=== PATIENT | male | born 1955 | race Caucasian/White ===

== ENCOUNTER 2022-06-04 05:42 | Observation (INO) | payer BC ==
--- OUTSIDE RECORDS SUMMARY | 2022-06-04 05:45 | XMS REPORT | Continuity of Care Document ---
:1955 Author Organization [facility] t Address [address] [place] [address] Care Team Providers Name Role Phone [phone] Primary Care Physician Unavailable SYSTEM, PROVIDER NOT IN Attending Clinician Unavailable Ancelmo Bolaños MD Attending Clinician ANCELMO BOLAÑOS Attending Clinician Unavailable МАРИЯ LUA Attending Clinician Unavailable BENJAMIN CASON Attending Clinician Unavailable RADIOLOGY Attending Clinician Unavailable Payers Payer Name Policy Type Policy Number Effective Date Expiration Date S [facility] [id number] 2016 00:00:00 Problems Condition Condition Condition Status Onset Resolution Last Treating Co mments Source Name Details Category Date Date Treatment Clinician Date Obstructiv Obstructiv Disease Active M ethodi e sleep e sleep 04-25 st apnea, apnea, 00:00: Hospita adult adult 00 l Allergies, Adverse Reactions, Alerts Allergy Allergy Status Severity Reaction(s) Onset Inactive Treating Comm ents Source Name Type Date Date Clinician Charleen Goins Active 2019-08 Univers Larry ty to 0-30 ity of adverse 00:00: [place] reaction 00 MD burt garcia [facility] Codeine Propmane Active Other (See Uni vers ty to Comments) 04-25 ity of adverse 00:00: [place] reaction 00 MD burt garcia [facility] Zolpidem Propensi Active Other Univer s ty to 04-25 reaction( ity of adverse 00:00: s): [place] reaction 00 Unknown MD [place] Reaction Satinder garcia [facility] Zolpidem Propensi Active Unknown 2019-0 Metho di ty to Reaction 04-25 adverse 00:00: Hospita reaction 00 l s to drug Codeine Propensi Active Unknown Method i ty to Reaction 04-25 adverse 00:00: Hospita reaction 00 l s to drug NO KNOWN Drug Active Univers ALLERGIE Class ity of S [facility] Family History Family Member Diagnosis Comments Start Date Stop Date Source Natural father Kidney cancer Univers [facility] Natural mother Pancreatic cancer Uni versity of [facility] Social History Social Habit Start Date Stop Date Quantity Comments Source History SDOH [facility] Drinks History SDOH [facility] Alcohol intake 2020-06-01 2020-06-01 Ex-drinker University of 00:00:00 00:00:00 (finding) [place] Darek wayne [facility] Tobacco Comment 2020-06-01 2020-06-01 I have neve Yahir ty of 00:00:00 00:00:00 smoked and have [place] MD Berg not drank any Cancer Cent er alcohol in 40yrs. Alcohol Comment 2020-06-01 2020-06-01 I have not drank Uni versity of 00:00:00 00:00:00 any alcohol in [place] MD Link tr[facility]illo [facility] Tobacco use and 2020-06-01 2020-06-01 Smokeless tobacco Un iversity of exposure 00:00:00 00:00:00 non-user [place] MD Darek wayne [facility] History SDOH 2019-04-25 2019-04-25 1 [facility] Alcohol Frequency 00:00:00 00:00:00 Hospita l Sex [birth year] [facility] 00:00:00 00:00:00 Hospital Smoking Status Start Date Stop Date Source Never smoked tobacco [facility] Medications Ordered Filled Start Stop Current Ordering Indication Dosage Frequency Signature Comments Components Source Medication Medication Date Date Medication? Clinician (SIG) Name Name MAGNESIUM 2020-08 Yes Take by Unive rs ORAL 1-03 mouth. ity of 09:42: Sonny garcia [facility] vitamin B 2020-08 Yes Take by Unive rs complex (B 1-03 mouth. ity of COMPLEX-VIT 09:42: Sonny Chan 47 ORAL) [facility] cholecalcif 2021-1 Yes Take by Uni vers deep, 1-03 mouth. ity of vitamin D3, 09:42: [place] (VITAMIN D3 47 ORAL) Satinder garcia [facility] zinc 2020-08 Yes 50mg Take 50 mg Univers gluconate 1-03 by mouth ity of 50 mg 09:42: daily. [place] tablet 47 MD Satinder garcia [facility] nebivolol 2020-08 Yes 1{tbl} Take 1 Univ ers (BYSTOLIC) 1-01 tablet by ity of 10 mg 00:00: mouth [place] tablet 00 daily. 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 MD Satinder garcia [facility] lithium 2019-08 Yes 1{tbl} Take 1 Univer s carbonate 0-20 tablet by ity o f (ESKALITH) 00:00: mouth [place] 450 MG CR 00 daily. MD dean garcia [facility] doxazosin Yes 1{tbl} Take 1 Univ ers (CARDURA) 2 8-14 tablet by [place]y [place] bed[place] Satinder garcia [facility] traZODone Yes Methodi (DESYREL) 9-23 st 50 MG 00:00: Hospita tablet 00 l ARMOUR Yes 30mg Take 30 mg Metho di THYROID 30 9-[address] mg tablet 00:00: Hospita 00 l lithium Yes 450mg QD Take 450 Metho di (ESKALITH) 9-[address] 450 MG CR 00:00: mouth Hospita tablet 00 every l evening. Vital Signs Vital Name Observation Time Observation Value Comments Source HEIGHT 2020-06-01 12:07:22 177 cm WEIGHT 2020-06-01 12:07:22 91.8 kg Systolic blood 2021-06-05 14:36:24 125 mm[Hg] Univer sity of pressure [facility] Diastolic blood 2021-06-05 14:36:24 75 mm[Hg] Unive rsity of pressure [facility] Heart rate 2021-06-05 14:36:24 62 /min Universi ty of [facility] Respiratory rate 2021-06-05 14:36:24 20 /min [facility] MD [facility] Body temperature 2021-06-05 14:35:18 37 Kesha [facility] MD [facility] Body weight 2021-06-05 14:35:18 91.3 kg [facility] MD [facility] BMI 2021-06-05 14:35:18 29.14 kg/m2 [facility] MD [facility] Oxygen saturation in 2021-06-05 14:35:18 95 /min [facility] Arterial blood by Sonny trujillo Pulse oximetry Cancer Center Procedures Procedure Date / Time Performed Performing Clinician [facility] e US HEAD NECK SOFT 2021-06-05 14:13:21 Chitra Sr [facility] TISSUE MD [facility] Plan of Care Planned Activity Planned Date Details Comments Source Future Scheduled 2022-05-11 HEPATITIS B VACCINES Met [facility] Test 15:04:56 (1 of 3 - 3-dose series) [code = HEPATITIS B VACCINES (1 of 3 - 3-dose series)] Future Scheduled 2022-05-11 COVID-19 VACCINE (#1) [facility] Test 15:04:56 [code = COVID-19 VACCINE (#1)] Future Scheduled 2022-05-11 COLONOSCOPY SCREENING [facility] Test 15:04:56 [code = COLONOSCOPY SCREENING] Future Scheduled 2022-05-11 SHINGLES VACCINES (1 Met [facility] Test 15:04:56 of 2) [code = SHINGLES VACCINES (1 of 2)] Future Scheduled 2022-05-11 65+ [facility]OC[facility]CCAL [facility] Test 15:04:56 VACCINE (1 - PCV) [code = 65+ PNEUMOCOCCAL VACCINE (1 - PCV)] Future Scheduled 2022-05-11 INFLUENZA VACCINE [facility] Test 15:04:56 [code = INFLUENZA VACCINE] Future Scheduled 2022-02-05 COVID-19 Vaccination Uni [facility] Test 07:04:18 (#1) [code = COVID-19 Cancer Vaccination (#1)] Center Encounters Start End Encounter Admission Attending Care Care Encounter Source Date/Time Date/Time Type Type Clinicians Facility Department ID 2022-03-25 Outpatient STLMLC STLM [id number] Common 09:34:00 [id number] [facility] 2021-06-07 Outpatient SYSTEM, [facility] SRAVANTHI [id number] 13:41:45 PROVIDER Pavan garcia 2020-05-17 Outpatient SYSTEM, [facility] SRAVANTHI [id number] 14:27:34 PROVIDER Pavan garcia 2021-06-05 2021-06-05 Office Miky [id number] [facility] 10:30:00 10:52:09 Visit Ancelmo [id number] ity of 3.412.2.7 [place] .3.266322 .8 Satinder garcia [facility] 2021-06-05 2021-06-05 Outpatient ARLENE BOLAÑOS [facility] SRA[facility] [id number] 09:29:46 10:52:09 ANCELMO garcia 2021-06-05 2021-06-05 Ancillary Miky, 1.2.840.1 [id number] [facility] 08:00:00 10:00:00 Procedure Ancelmo [id number] it y of 3.412.2.7 [place] .3.201861 .8 Satinder garcia [facility] 2021-06-05 2021-06-05 Outpatient ARLENE BOLAÑOS [facility] [id number] 07:25:27 07:25:27 ANCELMO garcia 2021-06-05 2021-06-05 Travel 1.2.840.1 [id number] Univers 00:00:00 00:00:00 [id number] ity of 3.412.2.7 2.[place]7.3.698 [place] .[id number] 084.8 .8 Satinder garcia [facility] 2021-02-05 2021-02-05 Outpatient Ludin LUA [facility] [id number] Univers 00:00:00 00:00:00 [facility] ity [facility] 2020-08-06 2020-08-06 Outpatient Ludin LUA [facility] [id number] Univers 16:15:00 16:15:00 [facility] 2020-07-09 2020-07-09 Outpatient R STONEY, [facility] [id number] Univers 16:00:00 16:00:00 МАРИЯ [facility] 2020-06-01 2020-06-01 Outpatient EL MIKY, MDA MDA [id number] MD 12:00:56 13:29:45 ANCELMO garcia 2020-05-30 2020-05-30 Outpatient EL CASON, MDA MDA [id number] MD 11:28:54 23:59:00 BENJAMIN Leyvaers gage n 2020-05-30 2020-05-30 Outpatient EL CASON, MDA MDA [id number] MD 09:07:56 09:07:56 BENJAMIN Leyvaers gage garcia 2020-05-30 2020-05-30 Outpatient EL MIKY, MDA MDA [id number] MD 08:50:41 08:50:49 ANCELMO garcia 2020-05-29 2020-05-29 Outpatient MIKY, MDA MDA [id number] MD 22:29:46 22:29:46 ANCELMO garcia 2020-05-29 2020-05-29 Outpatient MIKY, MDA MDA [id number] MD 22:29:46 22:29:46 ANCELMO garcia 2020-05-29 2020-05-29 Outpatient MIKY, MDA MDA [id number] MD 22:29:45 22:29:45 ANCELMO garcia 2020-05-29 2020-05-29 Outpatient MIKY, MDA MDA [id number] MD 22:29:44 22:29:44 ANCELMO garcia 2020-05-29 2020-05-29 Outpatient MIKY, MDA MDA [id number] MD 22:29:44 22:29:44 ANCELMO garcia 2020-05-29 2020-05-29 Outpatient MIKY, MDA MDA [id number] MD 22:29:43 22:29:43 ANCELMO garcia 2020-05-29 2020-05-29 Outpatient MIKY, MDA MDA [id number] MD 22:29:42 22:29:42 ANCELMO garcia 2020-05-29 2020-05-29 Outpatient MIKY, MDA MDA [id number] MD 22:29:41 22:29:41 ANCELMO garcia 2020-05-29 2020-05-29 Outpatient MIKY, MDA MDA [id number] 22:29:41 22:29:41 ANCELMO garcia 2020-05-29 2020-05-29 Outpatient MIKY, MDA MDA [id number] 22:29:40 22:29:40 ANCELMO garcia 2020-05-29 2020-05-29 Outpatient MIKY, MDA MDA [id number] 22:29:39 22:29:39 ANCELMO garcia 2020-05-29 2020-05-29 Outpatient MIKY, MDA MDA [id number] MD 22:29:39 22:29:39 ANCELMO garcia 2020-05-29 2020-05-29 Outpatient MIKY, MDA MDA [id number] 22:29:38 22:29:38 ANCELMO garcia 2020-05-29 2020-05-29 Outpatient MIKY, MDA MDA [id number] 22:29:37 22:29:37 ANCELMO garcia 2020-05-27 2020-05-27 Outpatient EL MIKY, MDA MDA [id number] 13:36:24 13:36:24 ANCELMO garcia 2020-04-24 2020-04-24 Outpatient R RADIOLOGY [facility] [id number] Univers 00:00[facility]00 [facility] 2020-04-18 2020-04-18 Outpatient R RADIOLOGY [facility] [id number] Univers 00:00:00 00:00:00 [facility] 2020-03-26 2020-03-26 Outpatient R RADIOLOGY [facility] [id number] Univers 00:00:00 00:00:00 [facility] Results This patient has no known results.
--- OUTSIDE RECORDS SUMMARY | 2022-06-04 05:45 | XMS REPORT | Clinical Summary ---
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 lithium carbonate Take 1 tablet by 0 05/22/2020 Active (ESKALITH) 450 MG CR mouth daily. tablet doxazosin (CARDURA) 2 Take 1 tablet by 0 03/16/2020 Active mg tablet mouth at bedtime. MAGNESIUM ORAL Take by mouth. 0 Active vitamin B complex (B Take by mouth. 0 Active COMPLEX-VITAMIN B12 ORAL) cholecalciferol, Take by mouth. 0 Active vitamin D3, (VITAMIN D3 ORAL) zinc gluconate 50 mg Take 50 mg by 0 Active tablet mouth daily. nebivolol (BYSTOLIC) Take 1 tablet by 0 06/03/2021 Active 10 mg tablet mouth daily. Active Problems Not on file Encounters Date Type Specialty Care Team Description 06/05/2021 Office Visit Endocrine Surgery Ancelmo Bolaños MD Thyroi d nodule 06/05/2021 Ancillary Procedure Radiology Ancelmo Bolaños MD Thyr oid nodule 06/05/2021 Travel after 06/04/2021 Surgical History Surgery Date Site/Laterality Comments COLONOSCOPY 08/03/2019 - 08/02/2020 I have had 3 colonoscopy. Last one was this year. Medical History Medical History Date Comments Unspecified lump in unspecified breast 2013 N odules on my Thyroid. Diverticulitis 2009 I have had 3 Colonos copys. Last one this [id number]. Polyp of colon 2009 I have had 3 Colonos copys. Last one this [id number]. Gallstone 2009 With each ultrasound I have the gallstone has shrunk. Bipolar disorder 1989 I take [place] once a day. 450mg Family History Medical History Relation Name Comments Kidney cancer Father Issac Giron My Father has o ne kidney since . He had cancer on it . His kidney Doctor was able to remove a ll of it with any Flako treatments. He i s still living at 86yrs. old. Pancreatic cancer Mother May Moreno My mother had Pancreatic Cancer. She in 2 009. Relation Name Status Comments Father Issac Giron Mother May Moreno Social History Tobacco Use Types Packs/Day Years Used Date Smoking Tobacco: Never Smokeless Tobacco: Never Comments: I have neve smoked and have no t drank any alcohol in 40yrs. Alcohol Use Standard Drinks/Week Comments Not Currently 0 (1 standard drink = 0.6 oz pure I have not drank any alcohol in alcohol) 40yrs. Sex Assigned at Date Recorded Male 05/27/2020 8:22 PM CDT Job Start Date Occupation Industry Not on file Not on file Not on file Obstetrics History Last Filed Vital Signs Vital Sign Reading Time Taken Comments Blood Pressure 125/75 06/05/2021 9:36 AM CDT Pulse 62 06/05/2021 9:36 AM CDT Temperature 37 C (98.6 F) 06/05/2021 9:35 AM CDT Respiratory Rate 20 06/05/2021 9:36 AM CDT Oxygen Saturation 95% 06/05/2021 9:35 AM CDT Inhaled Oxygen Concentration - - Weight 91.3 kg (201 lb 4.5 oz) 06/05/2021 9:35 AM CDT Height - - Body Mass Index 29.14 06/01/2020 12:07 PM CDT Plan of Treatment Health Maintenance Due Date Last Done Comments COVID-19 Vaccination (#1) 1955 Procedures Procedure Name Priority Date/Time Associated Diagnosis Comme nts US HEAD NECK SOFT Routine 06/05/2021 9:13 AM Thyroid nodule Re sults for this TISSUE CDT procedure are i n the results section. after 06/04/2021 Results US HEAD NECK SOFT TISSUE (06/05/2021 9:13 AM CDT) Anatomical Region Laterality Modality Head, Neck Ultrasound Specimen (Source) Anatomical Collection Method Collection Time Re ceived Time Location / / Volume Laterality 06/05/2021 9:01 AM CDT Impressions 06/05/2021 9:34 AM CDT 1. No growth in thyroid isthmus nodule w ith dense internal calcifications that has been biopsied previously. 2. No new suspicious thyroid nodule. 3. No lateral neck adenopathy. 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 Indication: Palpable Nodules Comparison: Ultrasound on 05/30/2020 Technique: Real-time grayscale and power Doppler ultrasound. Findings: Right lobe of thyroid gland me asures 2.2 x 4.6 x 1.9 cm. Left lobe of thyroid gland measures 2.2 x 4.5 x 1.8 cm. 1.2 x 1.5 x 0.9 cm midline thyroid isthmus nodule with internal dense calcifica tions is stable in size. This lesion was biopsied previously. Hypoechoic nodularity in left posterior mid thyroid is less prominent measuring 0.6 x 0.9 x 0.5 cm. There is stable subcentimeter foci of ca lcification in right mid and superior th yroid lobe there is an without associated nodule. No new suspicious thyroid nodule is detected. There is no lateral neck adenopathy. 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 Indication: Palpable Nodules Comparison: Ultrasound on 05/30/2020 Technique: Real-time grayscale and power Doppler ultrasound. Findings: Right lobe of thyroid gland me asures 2.2 x 4.6 x 1.9 cm. Left lobe of thyroid gland measures 2.2 x 4.5 x 1.8 cm. 1.2 x 1.5 x 0.9 cm midline thyroid isthmus nodule with internal dense calcifications is stable in size. This lesion was biopsied previously. Hypoechoic nodularity in left posterior mid thyroid is less prominent measuring 0.6 x 0.9 x 0.5 cm. There is stable subcentimeter foci of calcification in right mid and superior thyroid lobe there is an withou t associated nodule. No new suspicious thyroid nodule is detected. There is no lateral neck adenopathy. IMPRESSION: 1. No growth in thyroid isthmus nodule w ith dense internal calcifications that has been biopsied previously. 2. No new suspicious thyroid nodule. 3. No lateral neck adenopathy. 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
[2022-06-04] MEDS ORDERED: NA CHLORIDE 0.9% 1,000 ML ONE (06:09)
[2022-06-04] MEDS ORDERED: ONDANSETRON 4 MG/2 ML VIAL ONE (06:09)
[2022-06-04 06:57] LABS: Absolute Lymphocytes (CBC) 0.7 K/uL (0.7-4.9); Hematocrit 50.2 % (39.6-49.0); Lymphocytes % 4.7 % (15.3-44.8); MCV 86.4 fL (80-100); MPV 9.4 fL (7.6-11.3); RBC Red Blood Cell Count 5.81 M/uL (4.33-5.43)
[2022-06-04 07:15] LABS: Albumin 4.2 g/dL (3.4-5.0); Bilirubin Total 1.3 mg/dL (0.2-1.0); Potassium 4.1 mmol/L (3.5-5.1); Protein, Total 7.7 g/dL (6.4-8.2)
[2022-06-04 08:14] LABS: Protime INR 1.08
[2022-06-04 08:31] LABS: Magnesium 2.1 mg/dL (1.8-2.4); Troponin High Sensitivity 5.8 pg/mL (<58.9)
--- NOTE | 2022-06-04 09:20 | EDPHYS ---
Physician Documentation [facility] Name: Rick Giron Age: 67 yrs Sex: Male : 1955 Arrival Date: 06/04/2022 Time: 05:44 Bed 14 Private MD: MICKEY Physician Abran Berg HPI: 06/04 06:17 This 67 yrs old Male presents to ER via Ambulatory with complaints of Abdominal Pain, rn Abdominal Swelling, Vomiting. 06:17 The patient presents to the emergency department with nausea, vomiting, abdominal pain. rn Onset: The symptoms/episode began/occurred yesterday. Possible causes: unknown. The symptoms are aggravated by nothing. The symptoms are alleviated by nothing. Associated signs and symptoms: Pertinent positives: abdominal pain, nausea, vomiting, Pertinent negatives: anorexia, fever, GI bleeding. Severity of symptoms: At their worst the symptoms were moderate in the emergency department the symptoms are unchanged. The patient has experienced a previous episode. The patient has not recently seen a physician. Historical: - Allergies: 05:50 codeine; lg3 05:50 ambien; lg3 - Home Meds: 05:50 lithium carbonate 450 mg Oral TbER 1 tab daily [Active]; HTN medication [Active]; lg3 - PMHx: 05:50 HTN; DM type 2; lg3 - PSHx: 05:50 None; lg3 - Immunization history:: Adult Immunizations up to date, Client reports receiving the 2nd dose of the Covid vaccine, Flu vaccine is not up to date. - Social history:: Smoking status: Patient denies any tobacco usage or history of. Patient/guardian denies using alcohol, street drugs. - Family history:: not pertinent. - Hospitalizations: : No recent hospitalization is reported. ROS: 06:17 Constitutional: Negative for fever, chills, and weight loss, Eyes: Negative for injury, rn pain, redness, and discharge, Neck: Negative for injury, pain, and swelling, Cardiovascular: Negative for chest pain, palpitations, and edema, Respiratory: Negative for shortness of breath, cough, wheezing, and pleuritic chest pain, Abdomen/GI: + abd pain and swelling, + vomiting Back: Negative for injury and pain, MS/Extremity: Negative for injury and deformity, Skin: Negative for injury, rash, and discoloration, Neuro: Negative for headache, weakness, numbness, tingling, and seizure. Exam: 06:17 Constitutional: This is a well developed, well nourished patient who is awake, alert, rn sitting on edge of bed, appears uncomfortable Head/Face: Normocephalic, atraumatic. Eyes: Periorbital areas with no swelling, redness, or edema. ENT: Mucous membranes moist. Cardiovascular: Bradycardic, regular Respiratory: No increased work of breathing, no retractions or nasal flaring. Abdomen/GI: soft, + abd distension and tender in epigastric/periumbilical regions, soft and reducible umbilical hernia. Skin: Warm, dry MS/ Extremity: Pulses equal, no cyanosis. Neuro: Awake and alert, GCS 15 Vital Signs: 05:48 BP 140 / 86; Pulse 57; Resp 16 S; Temp 98.0(O); Pulse Ox 97% on R/A; Weight 90.72 kg lg3 (R); Height 5 ft. 10 in. (177.80 cm) (R); Pain 9/10; 06:30 BP 144 / 72; Pulse 49; Resp 17; Pulse Ox 96% on R/A; ll3 08:10 BP 119 / 63; Pulse 57; Resp 16; Pulse Ox 96% on R/A; Pain 0/10; ko1 09:02 BP 111 / 65; Pulse 53; Pulse Ox 94% on R/A; ko1 05:48 Body Mass Index 28.70 (90.72 kg, 177.80 cm) lg3 MDM: 05:45 Patient medically screened. rn 09:14 Differential diagnosis: Nonspecific abd pain, gastritis, cholecystitis, pancreatitis, maria del carmen appendicitis, diverticulitis, viral gastroenteritis, gastroenteritis. Data reviewed: vital signs, nurses notes, lab test result(s), EKG, radiologic studies, CT scan. Data interpreted: phototypesetting equipment monitor: rate is 53 beats/min, rhythm is regular, Pulse oximetry: on room air is 94 %. Test interpretation: by ED physician or midlevel provider: ECG, plain radiologic studies. Counseling: I had a detailed discussion with the patient and/or guardian regarding: the historical points, exam findings, and any diagnostic results supporting the discharge/admit diagnosis, lab results, radiology results, the need for further work-up and treatment in the hospital. 06/04 06:06 Order name: CBC with Diff rn 06/04 06:06 Order name: CMP rn 06/04 06:06 Order name: Lipase rn 06/04 06:06 Order name: Flu rn 06/04 06:06 Order name: SARS-COV-2 RT PCR (Document "Date of Onset" if Symptomatic) rn 06/04 06:58 Order name: CBC with Automated Diff; Complete Time: 07:33 EDTN 06/04 07:15 Order name: Comprehensive Metabolic Panel; Complete Time: 07:33 EDTN 06/04 07:15 Order name: Lipase; Complete Time: 07:33 EDTN 06/04 07:17 Order name: CREATININE WHOLE BLOOD; Complete Time: 07:33 [facility] 06/04 07:21 Order name: Influenza Screen (A ; Complete Time: 07:33 [facility] 06/04 07:32 Order name: Influenza Screen (A [facility] 06/04 07:33 Order name: Magnesium; Complete Time: 08:52 [facility] 06/04 07:33 Order name: NT PRO-BNP; Complete Time: 08:52 [facility] 06/04 07:33 Order name: PT-INR; Complete Time: 08:22 [facility] 06/04 06:06 Order name: CT Abd/Pelvis - IV Contrast Only rn 06/04 06:06 Order name: US Abdomen Limited rn 06/04 06:06 Order name: IV Saline Lock; Complete Time: 06:28 rn 06/04 06:06 Order name: Labs collected and sent; Complete Time: 06:28 06/04 07:33 Order name: Troponin HS; Complete Time: 08:52 [facility] 06/04 07:33 Order name: XRAY Chest (1 view) [facility] 06/04 07:33 Order name: EKG; Complete Time: 07:33 [facility] 06/04 07:33 Order name: Cardiac monitoring; Complete Time: 07:46 [facility] 06/04 07:33 Order name: EKG - Nurse/Tech; Complete Time: 08:03 [facility] 06/04 07:37 Order name: SARS-COV-2 RT PCR; Complete Time: 08:22 [facility] 06/04 07:40 Order name: Abdomen Exam Limited [facility] 06/04 07:45 Order name: Abdomen [facility] 06/04 07:33 Order name: O2 Per Protocol; Complete Time: 07:46 [facility] 06/04 07:33 Order name: O2 Sat Monitoring; Complete Time: 07:46 [place] carmen Administered Medications: 06:20 Drug: NS 0.9% 1000 ml Route: IV; Rate: 1 bolus; Site: right antecubital; ll3 07:07 Follow up: Response: No adverse reaction ko1 08:14 Follow up: IV Status: Completed infusion; IV converted to saline lock; IV Intake: [id number] 06:20 Drug: Zofran (Ondansetron) 4 mg Route: IVP; Site: right antecubital; ll3 07:06 Follow up: Response: No adverse reaction; Nausea is decreased ko1 09:40 Drug: Pepcid (famotidine) 20 mg Route: IVP; Site: right antecubital; ko1 09:54 Follow up: Response: No adverse reaction ko1 09:41 Drug: Zosyn (piperacillin-tazobactam) 3.375 grams Route: IVPB; Infused Over: 60 mins; ko1 Site: right antecubital; Disposition Summary: 06/04/22 09:20 Hospitalization Ordered Provider: Conner Cobos cha Condition: Fair maria [place] carmen Problem: new maria del carmen Symptoms: have improved maria del carmen Bed/Room Type: Standard maria del carmen Hospitalization Status: Inpatient Admission(06/04/22 09:52) maria [place] carmen Location: Telemetry/MedSurg (Inpatient)(06/04/22 09:52) maria [place] carmen Room Assignment: 214(06/04/22 13:01) dw Diagnosis - Abdominal pain, Generalized maria del carmen - Other cholelithiasis without obstruction maria del carmen - Elevated white blood cell count maria del carmen - Vomiting maria del carmen - Type 2 diabetes mellitus with hyperglycemia maria del carmen - Other viral enteritis - moderate small bowel enteritis maria del carmen Forms: - Medication Reconciliation Form maria del carmen - SBAR form maria del carmen Signatures: Dispatcher [employer] Naz Henderson RN RN dw Anderson, Corey, MD MD cha Nieto, Roman, MD MD rn Gibson, Lacie, RN RN lg3 Rafi Pete RN RN 3 Michelle Summers RN RN ko1 Corrections: (The following items were deleted from the chart) 09:52 09:20 Observation maria del carmen maria del carmen 09:52 09:20 Telemetry/MedSurg (observation) maria del carmen maria del carmen 09:52 09:20 maria del carmen maria del carmen 12:59 09:52 maria del carmen dw 13:01 12:59 212 dw dw
--- NOTE | 2022-06-04 09:20 | ER ---
Nurse's Notes [facility] Name: Rick Giron Age: 67 yrs Sex: Male : 1955 Arrival Date: 06/04/2022 Time: 05:44 Bed 14 Private MD: Diagnosis: Abdominal pain, Generalized;Other cholelithiasis without obstruction;Elevated white blood cell count;Vomiting;Type 2 diabetes mellitus with hyperglycemia;Other viral enteritis-moderate small bowel enteritis Presentation: 06/04 05:48 Chief complaint: Patient states: nausea, vomiting and abd pain starting last night. i lg3 feel like my stomach is swollen. Coronavirus screen: Client denies travel out of the [place] in the last 14 days. At this time, the client does not indicate any symptoms associated with coronavirus-19. Ebola Screen: No symptoms or risks identified at this time. Initial Sepsis Screen: Does the patient meet any 2 criteria? No. Patient's initial sepsis screen is negative. Does the patient have a suspected source of infection? No. Patient's initial sepsis screen is negative. Risk Assessment: Do you want to hurt yourself or someone else? Patient reports no desire to harm self or others. Onset of symptoms was June 03, 2022. 05:48 Method Of Arrival: Ambulatory lg3 05:48 Acuity: CAL 3 lg3 Triage Assessment: 05:50 General: Appears in no apparent distress. uncomfortable, Behavior is calm, cooperative. lg3 Pain: Complains of pain in abdomen Pain does not radiate. Noted to be grimacing, guarding, moaning, resistant to movement. EENT: No deficits noted. No signs and/or symptoms were reported regarding the EENT system. Neuro: No deficits noted. Licea Agitation-Sedation Scale (RASS): 0 - Alert and Calm Level of Consciousness is awake, alert, obeys commands, Oriented to person, place, time, situation. Cardiovascular: No deficits noted. Denies chest pain, shortness of breath, Capillary refill is > 3 seconds Clubbing of nail beds is absent JVD is absent Patient's skin is warm and dry. Respiratory: No deficits noted. Airway is patent Trachea midline Respiratory effort is even, unlabored, Respiratory pattern is regular, symmetrical, Breath sounds are clear bilaterally. GI: Abdomen is round Bowel sounds present X 4 quads. Reports lower abdominal pain, upper abdominal pain, cramping, nausea, vomiting. : No deficits noted. No signs and/or symptoms were reported regarding the genitourinary system. Derm: No deficits noted. No signs and/or symptoms reported regarding the dermatologic system. Skin is intact, is healthy with good turgor, Skin is dry, Skin is normal, Skin temperature is warm. Musculoskeletal: No deficits noted. No signs and/or symptoms reported regarding the musculoskeletal system. Circulation, motion, and sensation intact. Range of motion: intact in all extremities. Historical: - Allergies: 05:50 codeine; lg3 05:50 ambien; lg3 - Home Meds: 05:50 lithium carbonate 450 mg Oral TbER 1 tab daily [Active]; HTN medication [Active]; lg3 - PMHx: 05:50 HTN; DM type 2; lg3 - PSHx: 05:50 None; lg3 - Immunization history:: Adult Immunizations up to date, Client reports receiving the 2nd dose of the Covid vaccine, Flu vaccine is not up to date. - Social history:: Smoking status: Patient denies any tobacco usage or history of. Patient/guardian denies using alcohol, street drugs. - Family history:: not pertinent. - Hospitalizations: : No recent hospitalization is reported. Screenin:10 Abuse screen: Denies threats or abuse. Denies injuries from another. Nutritional ko1 screening: No deficits noted. Tuberculosis screening: No symptoms or risk factors identified. Fall Risk None identified. Assessment: 05:50 General: Appears uncomfortable, Behavior is calm, cooperative. Pain: Complains of pain ll3 in abdomen Pain currently is 9 out of 10 on a pain scale. Quality of pain is described as pressure, Pain began "Last night before bed". GI: Abdomen is round distended, Pt is actively vomiting clear fluid, undigested food, Stools are reported to be normal. Last BM was June 03, 2022. Abd is soft and non tender X 4 quads. Reports lower abdominal pain, upper abdominal pain, bloating, nausea, vomiting, Patient currently denies constipation, diarrhea. 06:40 Reassessment: Patient and/or family updated on plan of care and expected duration. Pain ll3 level reassessed. Patient is alert, oriented x 3, equal unlabored respirations, skin warm/dry/pink. Pt states pain and nausea has improved. 07:10 Reassessment: Patient states feeling better. Patient states symptoms have improved. ko1 Vital Signs: 05:48 BP 140 / 86; Pulse 57; Resp 16 S; Temp 98.0(O); Pulse Ox 97% on R/A; Weight 90.72 kg lg3 (R); Height 5 ft. 10 in. (177.80 cm) (R); Pain 9/10; 06:30 BP 144 / 72; Pulse 49; Resp 17; Pulse Ox 96% on R/A; ll3 08:10 BP 119 / 63; Pulse 57; Resp 16; Pulse Ox 96% on R/A; Pain 0/10; ko1 09:02 BP 111 / 65; Pulse 53; Pulse Ox 94% on R/A; ko1 05:48 Body Mass Index 28.70 (90.72 kg, 177.80 cm) lg3 Vitals: 08:00 Cardiac Rhythm Assessment Regular Sinus james. ko1 ED Course: 05:44 Patient arrived in ED. bp1 05:45 Ben Bourne MD is Attending Physician. rn 05:50 Triage completed. lg3 05:50 Arm band placed on left wrist. lg3 06:28 Initial lab(s) drawn, by me, sent to lab. Inserted saline lock: 22 gauge in right ll3 antecubital area, using aseptic technique. Blood collected. 07:05 Attending Physician role handed off by Ben Bourne MD maria del carmen 07:05 Abran Berg MD is Attending Physician. maria del carmen 07:06 Michelle Summers, RN is Primary Nurse. ko1 07:10 Patient has correct armband on for positive identification. Bed in low position. Call ko1 light in reach. Side rails up X 1. Pulse ox on. NIBP on. 07:10 No provider procedures requiring assistance completed. ko1 07:45 Abdomen Exam Limited In Process Unspecified. EDMS 07:49 Abdomen In Process Unspecified. EDMS 08:00 Repeat lab(s) drawn. by me, sent to lab. EKG done, by ED staff, reviewed by Abran Berg MD X-ray(s) taken. Patient maintains SpO2 saturation greater than 95% on room air. 08:03 Magnesium Sent. ko1 08:03 NT PRO-BNP Sent. ko1 08:03 PT-INR Sent. ko1 08:03 Troponin HS Sent. ko1 08:13 No apparent distress. Resting quietly. Awaiting lab results, Awaiting radiology results.ko1 08:16 XRAY Chest (1 view) In Process Unspecified. EDDC 09:17 Conner Cobos is Hospitalizing Provider. [facility] 14:40 Patient admitted, IV remains in place. ko1 Administered Medications: 06:20 Drug: NS 0.9% 1000 ml Route: IV; Rate: 1 bolus; Site: right antecubital; ll3 07:07 Follow up: Response: No adverse reaction ko1 08:14 Follow up: IV Status: Completed infusion; IV converted to saline lock; IV Intake: [id number] 06:20 Drug: Zofran (Ondansetron) 4 mg Route: IVP; Site: right antecubital; ll3 07:06 Follow up: Response: No adverse reaction; Nausea is decreased ko1 09:40 Drug: Pepcid (famotidine) 20 mg Route: IVP; Site: right antecubital; ko1 09:54 Follow up: Response: No adverse reaction ko1 09:41 Drug: Zosyn (piperacillin-tazobactam) 3.375 grams Route: IVPB; Infused Over: 60 mins; ko1 Site: right antecubital; Medication: 07:10 VIS not applicable for this client. ko1 Intake: 08:14 IV: 1000ml; Total: 1000ml. ko1 Outcome: 09:20 Decision to Hospitalize by Provider. [facility] 14:31 Admitted to Med/surg accompanied by tech, via wheelchair, room 214, with chart, Report ko1 called to VI Nicolas 14:31 Condition: good 14:31 Discharge instructions given to patient, family, Instructed on the need for admit, Demonstrated understanding of instructions, follow-up care. 15:04 Patient left the ED. ko1 Signatures: Dispatcher [employer] EDAbran Flor MD MD cha Nieto, Roman, MD MD rn Gibson, Lacie RN RN lg3 Maria R Gutiérrez Lynsea, RN RN ll3 Michelle Summers RN RN ko1 Corrections: (The following items were deleted from the chart) 08:13 08:00 No apparent distress. Resting quietly. ko1 ko1 08:13 08:00 Awaiting lab results, Awaiting radiology results. ko1 ko1
[2022-06-04] MEDS ORDERED: PIPERACIL/TAZO 3.375 GM VIAL IV ONE (09:28)
[2022-06-04] MEDS ORDERED: FAMOTIDINE 20 MG/2 ML VIAL IV ONE (09:28)
[2022-06-04] MEDS ORDERED: NA CHLORIDE 0.9% 100 ML IV ONE (09:31)
--- NOTE | 2022-06-04 09:39 | RAD REPORT ---
EXAM DESCRIPTION: CT - Abdomen Pelvis Wo Contrast - 06/04/2022 7:47 am CLINICAL HISTORY: abd pain and distension COMPARISON: No comparisons TECHNIQUE: Axial [address] imaging of the abdomen and pelvis was performed without IV contrast. No IV contrast was given because of allergy, abnormal renal function, patient refusal or physician re quest. No oral contrast administered. All CT scans are performed using dose optimization technique as appropriate and may include automated exposure control or mA/KV adjustment according to patient size. FINDINGS: No suspicious findings in the lung bases. The liver, spleen and pancreas show no suspicious findings on non-contrast imaging. Gallstones are pr esent but no acute gallbladder finding suspected. No biliary tree dilatation. No hydronephrosis or suspicious renal mass. A 3.8 centimeter round low-density mass of the upper pole is most likely a simple cyst. A 15 millimeter medial upper pole left renal mass is probably a cyst b ut not fully characterized. No significant adrenal finding. Isodense renal masses and pyelonephritis cannot be excluded in the absence of IV contrast. The urinary bladder is without significant finding. No gastric dilatation, gastric wall thickening or mass. No duodenum abnormality seen. Proximal loops of jejunum are unremarkable. Mid jejunum to the mid ileum level shows distended but nondilated fluid- filled small bowel loops. There is edema or stranding in the adjacent mesenteric fat. Scattered sub c entimeter mesenteric lymph nodes are present. No acute terminal ileum finding. No appendicitis. Promi nent colonic diverticulosis is present. Diverticulitis or other acute colon process is not seen. No free air or pneumatosis. Trace amount of free fluid is present in the peritoneal cavity. No oment al thickening, mass or bulky lymphadenopathy. No suspicious bony findings. IMPRESSION: Moderate severity small bowel enteritis pattern is present. An obstructive process is no t suspected at this time. Terminal ileum is not involved. No acute colon process seen. Cholelithiasis present without cholecystitis. Variably sized renal masses are most likely cysts but a re not fully characterized on a noncontrast study. Nonacute findings are detailed in the body of the report.
--- NOTE | 2022-06-04 09:41 | RAD REPORT ---
EXAM DESCRIPTION: RAD - Chest Single View - 06/04/2022 8:14 am CLINICAL HISTORY: ABDOMINAL DISTENTION COMPARISON: None TECHNIQUE: AP portable chest image was obtained 06/04/2022 8:14 am . FINDINGS: Lungs are clear. Heart and vasculature are normal. No measurable pleural effusion and no p neumothorax. No acute bony abnormality seen. No acute aortic findings suspected. IMPRESSION: No acute cardiopulmonary process.
--- NOTE | 2022-06-04 09:47 | RAD REPORT ---
EXAM DESCRIPTION: US - Abdomen Exam Limited - 06/04/2022 7:35 am CLINICAL HISTORY: ABD PAIN COMPARISON: Abdomen Exam Complete dated 03/28/2022 FINDINGS: Several variably sized gallstones are seen, multiple, without gallbladder wall mass. There is no wall thickening or pericholecystic fluid. No common duct stone or biliary tree dilatation identified. Trace amount of ascites seen along the lateral and superior liver capsule. IMPRESSION: Multi stone cholelithiasis without acute cholecystitis findings.
--- NOTE | 2022-06-04 12:16 | P.HP ---
Certification for Inpatient Patient admitted to: Observation With expected LOS: <2 Midnights Practitioner: I am a practitioner with admitting privileges, knowledge of patient current condition, hospital course, and medical plan of care. Services: Services provided to patient in accordance with Admission requirements found in Title 42 Section 412.3 of the Code of Federal Regulations Patient History Date of Service: 06/04/22 Reason for admission: Nausea and vomiting and abdominal pain History of Present Illness: 67-year-old gentleman with a history of hypertension and diabetes mellitus type 2 presented to the emergency department due to sudden onset nausea and vomiting which began at last night, 4 hours after eating dinner, comprising of soup and steamed chicken. Symptoms associated with abdominal pain. He denies any fever, denies any diarrhea or constipation. He denies any preceding nasal congestion or runny nose or cough. His spouse stated she experienced a brief flu-like symptoms a few days ago. In the ED, blood work showed leukocytosis. CT abdomen and pelvis done showed distended fluid-filled small bowel loops suggestive of enteritis. He does not meet criteria for sepsis. Patient is hospitalized for further management. - Past Medical/Surgical History -: Hypertension -: Diabetes mellitus type 2 -: Colonoscopy - Family History Mother -: Cancer (Pancreatic cancer) Father -: Cancer (Kidney cancer) - Social History Smoking Status: Never smoker Alcohol use: No CD- Drugs: No Place of Residence: Home Review of Systems Other: Except as documented, all other systems reviewed and negative. Physical Examination - Physical Exam General: Alert, In no apparent distress, Oriented x3 HEENT: Mucous membr. moist/pink Neck: JVD not distended Respiratory: Clear to auscultation bilaterally, Normal air movement Cardiovascular: No edema, Regular rate/rhythm, Normal S1 S2 Gastrointestinal: Normal bowel sounds, Soft and benign, Non-distended, No rebound, Other (Mild left lower quadrant tenderness) Musculoskeletal: No swelling, No tenderness Integumentary: No rashes, No erythema, No cyanosis Neurological: Normal speech, Normal strength at 5/5 x4 extr, Cranial nerves 3-12 intact Lymphatics: No axilla or inguinal lymphadenopathy - Studies Laboratory Data (last 24 hrs) 06/04/22 08:00: PT 11.9, INR 1.08 06/04/22 08:00: Magnesium 2.1 06/04/22 06:20: Sodium 139, Potassium 4.1, BUN 21 H, Creatinine 1.64 H, Glucose 233 H, Total Bilirubin 1.3 H, AST 18, ALT 34, Alkaline Phosphatase 76, Lipase 82 06/04/22 06:20: WBC 14.20 H, Hgb 16.4, Hct 50.2 H, Plt Count 297 06/04/22 06:06: Sodium Cancelled, Potassium Cancelled, BUN Cancelled, Creatinine Cancelled, Glucose Cancelled, Total Bilirubin Cancelled, AST Cancelled, ALT Cancelled, Alkaline Phosphatase Cancelled, Lipase Cancelled 06/04/22 06:06: WBC Cancelled, Hgb Cancelled, Hct Cancelled, Plt Count Cancelled Microbiology Data (last 24 hrs): 06/04/22 06:20 Nasopharnyx Influenza Type A Antigen Screen - Final 06/04/22 06:20 Nasopharnyx Influenza Type B Antigen Screen - Final Assessment and Plan - Problems (Diagnosis) (1) Acute gastroenteritis Current Visit: Yes Status: Acute (2) Diabetes mellitus type 2 in nonobese Current Visit: Yes Status: Acute (3) Hypertension Current Visit: Yes Status: Acute - Plan Place patient under observation. Start supportive measures-IV normal, antiemetics as needed. Start empiric IV Cipro and Flagyl. Serial abdominal examination. Insulin sliding scale for glucose management. Hold antihypertensives as patient's blood pressure is soft. - Advance Directives Does patient have a Living Will: No Does patient have a Durable POA for Healthcare: No
[2022-06-04 15:30] VITALS: O2SAT 94
[2022-06-04] MEDS ORDERED: ACETAMINOPHEN 500 MG TAB PO PRN (15:54)
[2022-06-04] MEDS ORDERED: NA CHLORIDE 0.9% 1,000 ML IV SCH (15:54)
[2022-06-04] MEDS ORDERED: ONDANSETRON 4 MG/2 ML VIAL IV PRN (15:54)
[2022-06-04 16:23] VITALS: BMI 28.7
[2022-06-04] MEDS: INSULIN -REGULAR HUMAN 50 UNIT/0.5 ML ML SQ SCH ×2 (16:30→21:00)
[2022-06-04] MEDS: METRONIDAZOLE 500mg IVPB 500 MG/100 ML BAG IV SCH (16:31)
[2022-06-04 20:15] LABS: Specific Gravity 1.012 (1.005-1.030); Urine Bacteria <20 /HPF (<20); Urine Bilirubin NEGATIVE (Negative); Urine Blood Negative (Negative); Urine Clarity Clear (Clear); Urine Color Light-Yellow (Yellow); Urine Glucose 3+ (Negative); Urine Mucus Slight /HPF (None Seen); Urine Protein NEGATIVE (Negative); Urine RBC <5 /HPF (None Seen); Urine Urobilinogen Normal (Normal); Urine pH 5.5 (5.0-7.0)
[2022-06-04] MEDS: CIPROFLOXACIN 400mg IV 400 MG/200 ML BAG IV SCH (21:16)
[2022-06-05] MEDS: METRONIDAZOLE 500mg IVPB 500 MG/100 ML BAG IV SCH ×2 (00:40→09:00)
[2022-06-05 04:09] LABS: Absolute Lymphocytes (CBC) 1.5 K/uL (0.7-4.9); Hematocrit 36.3 % (39.6-49.0); Lymphocytes % 20.1 % (15.3-44.8); MCV 85.3 fL (80-100); MPV 9.3 fL (7.6-11.3); RBC Red Blood Cell Count 4.25 M/uL (4.33-5.43)
[2022-06-05 04:23] LABS: Albumin 2.9 g/dL (3.4-5.0); Bilirubin Total 1.5 mg/dL (0.2-1.0); Phosphorus 2.2 mg/dL (2.5-4.9); Potassium 4.1 mmol/L (3.5-5.1); Protein, Total 5.4 g/dL (6.4-8.2)
[2022-06-05] MEDS: INSULIN -REGULAR HUMAN 50 UNIT/0.5 ML ML SQ SCH ×2 (07:30→11:30)
--- NOTE | 2022-06-05 08:47 | P.DS ---
Admission Date: 06/04/22 Discharge Date: 06/05/22 Disposition: ROUTINE DISCHARGE Discharge Condition: FAIR Reason for Admission: Nausea and vomiting and abdominal pain - Problems (1) Acute gastroenteritis Current Visit: Yes Status: Acute (2) Diabetes mellitus type 2 in nonobese Current Visit: Yes Status: Acute (3) Hypertension Current Visit: Yes Status: Acute Brief History of Present Illness: 67-year-old gentleman with a history of hypertension and diabetes mellitus type 2 presented to the emergency department due to sudden onset nausea and vomiting which began at last night, 4 hours after eating dinner, comprising of soup and steamed chicken. Symptoms associated with abdominal pain. He denied any fever, denies any diarrhea or constipation. He denied any preceding nasal congestion or runny nose or cough. His spouse stated she experienced a brief flu-like symptoms a few days ago. In the ED, blood work showed leukocytosis. CT abdomen and pelvis done showed distended fluid-filled small bowel loops suggestive of enteritis. He does not meet criteria for sepsis. Patient iwas hospitalized for further management. Hospital Course: Patient placed on observation on the medical floor and treated with supportive measures including IV fluids and antiemetics. He was also treated with antibiotics for possible bacterial gastroenteritis. Patient's symptoms resolved within 24 hours and tolerated diet. Patient's symptoms likely related to food poisoning or acute viral gastroenteritis. His symptoms have resolved and patient is deemed stable for discharge. Has bradycardia with heart rate down to 40, patient noted to be on nebivolol. His nebivolol dose is decreased to 5 mg daily and amlodipine 10 mg added for blood pressure control. Vital Signs/Physical Exam: Temp Pulse Resp BP Pulse Ox 97.2 F 41 L 14 152/68 H 99 06/05/22 08:00 06/05/22 08:00 06/05/22 08:00 06/05/22 08:00 06/05/22 08:00 General: Alert, In no apparent distress, Oriented x3 HEENT: Mucous membr. moist/pink Neck: JVD not distended Respiratory: Clear to auscultation bilaterally, Normal air movement Cardiovascular: No edema, Normal S1 S2, Other (Bradycardia) Gastrointestinal: Normal bowel sounds, Soft and benign, Non-distended, No tenderness Musculoskeletal: No swelling Integumentary: No rashes, No cyanosis Neurological: Normal strength at 5/5 x4 extr Laboratory Data at Discharge: WBC 7.40 K/uL (4.3-10.9) 06/05/22 03:05 Hgb 12.2 g/dL (13.6-17.9) L D 06/05/22 03:05 Hct 36.3 % (39.6-49.0) L 06/05/22 03:05 Plt Count 199 K/uL (152-406) D 06/05/22 03:05 PT 11.9 SECONDS (9.5-12.5) 06/04/22 08:00 INR 1.08 06/04/22 08:00 Sodium 145 mmol/L (136-145) D 06/05/22 03:05 Potassium 4.1 mmol/L (3.5-5.1) 06/05/22 03:05 BUN 16 mg/dL (7-18) 06/05/22 03:05 Creatinine 1.29 mg/dL (0.55-1.3) 06/05/22 03:05 Glucose 103 mg/dL (74-106) 06/05/22 03:05 Phosphorus 2.2 mg/dL (2.5-4.9) L 06/05/22 03:05 Magnesium 2.0 mg/dL (1.8-2.4) 06/05/22 03:05 Total Bilirubin 1.5 mg/dL (0.2-1.0) H 06/05/22 03:05 AST 16 U/L (15-37) 06/05/22 03:05 ALT 22 U/L (12-78) 06/05/22 03:05 Alkaline Phosphatase 51 U/L (45-117) D 06/05/22 03:05 Lipase 82 U/L (73-393) 06/04/22 06:20 Home Medications: Dapagliflozin Propanediol [Farxiga] 5 mg PO DAILY 06/04/22 Doxazosin [Cardura*] 2 mg PO DAILY 06/04/22 [place] Carbonate [[place] Carbonate ER] 450 mg PO DAILY 06/04/22 Amlodipine [Norvasc*] 10 mg PO DAILY #30 tab 06/05/22 Nebivolol HCl 5 mg PO DAILY #30 06/05/22 New Medications: Nebivolol HCl 5 mg PO DAILY #30 Amlodipine [Norvasc*] 10 mg PO DAILY #30 tab Diet: ADA Activity: Ad ruslan Followup: Harjinder eMndoza MD [Primary Care Provider] - 1-2 Weeks
[2022-06-05] MEDS: CIPROFLOXACIN 400mg IV 400 MG/200 ML BAG IV SCH (09:00)
[2022-06-05] MEDS ORDERED: POTASS/SODIUM PHOSPHATE 1 PKT POWD.PACK PO SCH (09:00)
[2022-06-05 12:34] VITALS: BP 146/63; TEMP 97
--- NOTE | 2022-06-05 14:20 | EKG ---
Test Date: 2022-06-04 Test Time: 07:57:06 Clay Artisan: Christophe Marie MEASUREMENT RESULTS: Intervals: Rate: 52 DC: 170 QRSD: 90 QT: 430 QTc: 399 [place]: P: 66 DC: 170 QRS: 44 T: 66 INTERPRETIVE STATEMENTS: Sinus bradycardia Otherwise normal ECG No previous ECG available for comparison Electronically Signed On 06-05-22 14:17:25 CDT by Foster Nassar
== END 2022-06-05 11:55 | disposition home or self-care (01) ==
LOC: ER 05:42 → ERHOLD 11:49 → 2ND 14:44
PROVIDERS: ADMIT Internal Medicine; ATTEND Internal Medicine
DX: K52.9 Noninfective gastroenteritis and colitis, unspecified (principal); I10 Essential (primary) hypertension; E11.9 Type 2 diabetes mellitus without complications; Z80.9 Family history of malignant neoplasm, unspecified
CPT/HCPCS: 96361; 93005; 87040 ×2; 85025 ×2; 81001; 36415; 83735 ×2; 84100; 85610; 82565; 82947 ×2; 84484; 83690; 80053 ×2; 83880; 87804 ×2; 74176; 71045; 76705; 96375; 96374; 99285; U0003; J2543; J7030 ×3; J2405; J0744; G0378 ×3

== ENCOUNTER 2023-01-15 09:12 | Emergency (ER) | payer OTHER ==
--- OUTSIDE RECORDS SUMMARY | 2023-01-15 09:15 | XMS REPORT | Clinical Summary ---
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 Active Problems Not on file Surgical History Surgery Date Site/Laterality Comments COLONOSCOPY 08/03/2019 - 08/02/2020 I have had 3 colonoscopy. Last one was this year. Medical History Medical History Date Comments Unspecified lump in unspecified breast 2013 N odules on my Thyroid. Diverticulitis 2009 I have had 3 Colonos copys. Last one this [id number]. Polyp of colon 2009 I have had 3 Colonos copys. Last one this [id number]. Gallstone 2009 With each ultrasound I have the gallstone has shrunk. Bipolar disorder 1989 I take Vanlue once a day. 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
--- OUTSIDE RECORDS SUMMARY | 2023-01-15 09:16 | XMS REPORT | Continuity of Care Document ---
:1955 Author Organization [facility] t Address [address] [place] [address] Care Team Providers Name Role Phone Harjinder Mendoza MD Primary Care Physician Jasson Mendoza Attending Clinician Unavailable SYSTEM, PROVIDER NOT IN Attending Clinician Unavailable Ancelmo Bolaños MD Attending Clinician МАРИЯ LUA Attending Clinician Unavailable ANCELMO BOLAÑOS Attending Clinician Unavailable BENJAMIN CASON Attending Clinician Unavailable RADIOLOGY Attending Clinician Unavailable Payers Payer Name Policy Type Policy Number Effective Date Expiration Date S diamante [employer] 6 [id number] Common Spiri t [facility] [id number] 2016 00:00:00 Problems Condition Condition Condition Status Onset Resolution Last Treating Co mments Source Name Details Category Date Date Treatment Clinician Date Obstructiv Obstructiv Disease Active M ethodi e sleep e sleep 9-23 st apnea, apnea, 00:00: Hospita adult adult 00 l [id number] Encounter Problem Com mon for Spirit prostate - [facility] cancer [facility] [id number] Bipolar 1 Problem Com mon disorder [facility] [id number] Essential Problem Comm on hypertensi [facility] Allergies, Adverse Reactions, Alerts Allergy Allergy Status Severity Reaction(s) Onset Inactive Treating Comm ents Source Name Type Date Date Clinician Charleen Goins Active 2019-08 Univers Larry ty to 0-30 ity of adverse 00:00: [place] reaction 00 MD burt garcia [facility] Zolpidem Propensi Active Unknown Metho di ty to Reaction 04-25 adverse 00:00: Hospita reaction 00 l s to drug Codeine Propensi Active Unknown Method i ty to Reaction 04-25 adverse 00:00: Hospita reaction 00 l s to drug Codeine Propensi Active Other (See Uni vers ty to Comments) 04-25 ity of adverse 00:00: [place] reaction 00 MD burt garcia [facility] Zolpidem Propensi Active Other Univer s ty to 04-25 reaction( ity of adverse 00:00: s): [place] reaction 00 Unknown [place] [facility] Drug Active Univers ALLERGIE Class ity of S [facility] zolpidem zolpidem Active Unknown Commo n Spirit - [facility] Family History Family Member Diagnosis Comments Start Date Stop Date Source Natural father Kidney cancer Univers ity of [place] [facility] r [place] Natural mother Pancreatic cancer Uni versity of [facility] Social History Social Habit Start Date Stop Date Quantity Comments Source [facility] Sexual orientation [facility] History SDOH [facility] Alcohol Std Drinks Hospit al History SDOH [facility] Alcohol Binge Hospital History of Tobacco Common Spirit - Use [facility] Tobacco use and 2020-06-01 2020-06-01 Smokeless Universit y of exposure 00:00:00 00:00:00 tobacco non-user [place] [facility] Alcohol Comment 2020-06-01 2020-06-01 I have not drank Uni versity of 00:00:00 00:00:00 any alcohol in [facility] Alcohol intake 2020-06-01 2020-06-01 Ex-drinker University of 00:00:00 00:00:00 (finding) [place] MD Darek wayne [facility] Tobacco Comment 2020-06-01 2020-06-01 I have neve Universi ty of 00:00:00 00:00:00 smoked and have [place] MD Berg not drank any Cancer Cent er alcohol in 40yrs. History of Social 2019-04-25 2019-04-[address] function 00:00:00 00:00:00 Hospital History SDOH 2019-04-25 2019-04-25 1 [facility] Alcohol Frequency 00:00:00 00:00:00 Hospita l Sex Ass[birth year] At [birth year] [facility] 00:00:00 00:00:00 Hospital Smoking Status Start Date Stop Date Source Never smoked tobacco [facility] Medications Ordered Filled Start Stop Current Ordering Indication Dosage Frequency Signature Comments Components Source Medication Medication Date Date Medication? Clinician (SIG) Name Name MAGNESIUM 2020-08 Yes Take by Unive rs ORAL 03 mouth. ity of 09:42: Sonny Farmer MD [facility] vitamin B 2020-08 Yes Take by Unive rs complex (B 08-05 mouth. ity of COMPLEX-VIT 09:42: Sonny MCCANN) [facility] cholecalcif 2020-08 Yes Take by Uni vers deep, 03 mouth. ity of vitamin D3, 09:42: Sonny (VITAMIN D3 47 MD MCCANN) [facility] zinc 2020-08 Yes 50mg Take 50 mg Univers gluconate 03 by mouth ity of 50 mg 09:42: daily. Sonny tablet 47 [facility] MAGNESIUM 2020-08 Yes Take by Unive rs ORAL 03 mouth. ity of 09:42: Sonny Farmer MD [facility] vitamin B 2020-08 Yes Take by Unive rs complex (B -03 mouth. ity of COMPLEX-VIT 09:42: [place] Farmer MD ORAL) [facility] cholecalcif 2020-08 Yes Take by Uni vers deep, -03 mouth. ity of vitamin D3, 09:42: Sonny (VITAMIN D3 47 ORAL) [facility] zinc 2020-08 Yes 50mg Take 50 mg Univers gluconate -03 by mouth ity of 50 mg 09:42: daily. Sonny tablet 47 [facility] nebivolol 2020-08 Yes 1{tbl} Take 1 Univ ers (BYSTOLIC) 08-03 tablet by ity of 10 mg 00:00: mouth [place] tablet 00 daily. MD Satinder garcia [facility] nebivolol 2020-08 Yes 1{tbl} Take 1 Univ ers (BYSTOLIC) 1-01 tablet by ity of 10 mg 00:00: mouth [place] tablet 00 daily. 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 MD Satinder garcia [facility] lithium 2019- Yes 1{tbl} Take 1 Univer s carbonate 0-20 tablet by ity o f (ESKALITH) 00:00: mouth [place] 450 MG CR 00 daily. MD dean Rajan [facility] lithium 2019-08 Yes 1{tbl} Take 1 Univer s carbonate 0-20 tablet by ity o f (ESKALITH) 00:00: mouth [place] 450 MG CR 00 daily. MD dean garcia [facility] doxazosin 2019-0 Yes 1{tbl} Take 1 Univ ers (CARDURA) 2 8-14 tablet by [place] mg tablet [place] bed[place] Satinder garcia [facility] doxazosin 2019-0 Yes 1{tbl} Take 1 Univ ers (CARDURA) 2 8-14 tablet by [place] mg tablet [place] bed[place] Satinder garcia [facility] traZODone 2018-0 Yes Methodi (DESYREL) 9-23 st 50 MG 00:00: Hospita tablet 00 l traZODone 2018-0 Yes Methodi (DESYREL) 9-23 st 50 MG 00:00: Hospita tablet 00 l ARMOUR Yes 30mg Take 30 mg Metho di THYROID 30 9-[address] mg tablet 00:00: Hospita 00 l ARMOUR Yes 30mg Take 30 mg Metho di THYROID 30 9-[address] mg tablet 00:00: Hospita 00 l lithium Yes 450mg QD Take 450 Metho di (ESKALITH) 9-[address] 450 MG CR 00:00: mouth Hospita tablet 00 every l evening. lithium 2019-0 Yes 450mg QD Take 450 Metho di (ESKALITH) 9-[address] 450 MG CR 00:00: mouth Hospita tablet 00 every l evening. Azithromyci Azithromyci 2017- No QD Azithromyc n 250 MG n 250 MG 1-27 in 250 MG 00:00: 00 traZODone traZODone No traZODone HCl HCl HCl Salmon Salmon No [place]mon Doxazosin Doxazosin No Doxazosin Mesylate Mesylate Mesylate Vital Signs Vital Name Observation Time Observation Value Comments Source height 2022-06-13 09:30:00 70 [in_i] [facility] weight 2022-06-13 09:30:00 200 [lb_av] [facility] temperature 2022-06-13 09:30:00 97.9 [degF] [facility] bmi 2022-06-13 09:30:00 28.69 kg/m2 [facility] oximetry 2022-06-13 09:30:00 99 % [facility] respiratory rate 2022-06-13 09:30:00 18 /min Comm on [facility] blood pressure 2022-06-13 09:30:00 146 mm[Hg] [facility] - systolic [facility] blood pressure 2022-06-13 09:30:00 65 mm[Hg] [facility] - diastolic [facility] HEIGHT 2020-06-01 12:07:22 177 cm WEIGHT 2020-06-01 12:07:22 91.8 kg Systolic blood 2021-06-05 14:36:24 125 mm[Hg] Univer sity of pressure [facility] Diastolic blood 2021-06-05 14:36:24 75 mm[Hg] Unive rsity of pressure [facility] Heart rate 2021-06-05 14:36:24 62 /min [facility] MD [facility] Respiratory rate 2021-06-05 14:36:24 20 /min [facility] Body temperature 2021-06-05 14:35:18 37 [facility] MD [facility] Body weight 2021-06-05 14:35:18 91.3 kg [facility] MD [facility] BMI 2021-06-05 14:35:18 29.14 kg/m2 [facility] MD [facility] Oxygen saturation in 2021-06-05 14:35:18 95 /min University Arterial blood by Sonny trujillo Pulse oximetry Cancer Center Procedures Procedure Date / Time Performed Performing Clinician Sour e US HEAD NECK SOFT 2021-06-05 14:13:21 [facility] Plan of Care Planned Activity Planned Date Details Comments Source Future Scheduled 2023-01-15 [facility] Test 09:15:18 malignant neoplasm of colon (procedure) [code = 504228795] Future Scheduled 2023-01-15 [facility] Test 09:15:18 malignant neoplasm of colon (procedure) [code = 651521970] Future Scheduled 2023-01-15 [facility] Test 09:15:18 malignant neoplasm of colon (procedure) [code = 823538676] Future Scheduled 2023-01-15 COVID-19 VACCINE (#1) [facility] Test 09:15:18 [code = COVID-19 VACCINE (#1)] Future Scheduled 2023-01-15 [facility] Test 09:15:18 malignant neoplasm of colon (procedure) [code = 612417166] Future Scheduled 2023-01-15 [facility] Test 09:15:18 malignant neoplasm of colon (procedure) [code = 127069380] Future Scheduled 2023-01-15 SHINGLES VACCINES (1 [facility] Test 09:15:18 of 2) [code = SHINGLES VACCINES (1 of 2)] Future Scheduled 2023-01-15 65+ [facility]OCOCC[address] [facility] Test 09:15:18 VACCINE (1 - PCV) [code = 65+ PNEUMOCOCCAL VACCINE (1 - PCV)] Future Scheduled 2023-01-15 INFLUENZA VACCINE [facility] Hospital Test 09:15:18 [code = INFLUENZA VACCINE] Future Scheduled 2022-05-11 HEPATITIS B VACCINES Met [facility] Test 15:04:56 (1 of 3 - 3-dose series) [code = HEPATITIS B VACCINES (1 of 3 - 3-dose series)] Future Scheduled 2022-05-11 COVID-19 VACCINE (#1) [facility] Test 15:04:56 [code = COVID-19 VACCINE (#1)] Future Scheduled 2022-05-11 COLONOSCOPY SCREENING [facility] Test 15:04:56 [code = COLONOSCOPY SCREENING] Future Scheduled 2022-05-11 SHINGLES VACCINES (1 [facility] Test 15:04:56 of 2) [code = SHINGLES VACCINES (1 of 2)] Future Scheduled 2022-05-11 65+ PNEUMOCOCCAL [facility] Hospital Test 15:04:56 VACCINE (1 - PCV) [code = 65+ PNEUMOCOCCAL VACCINE (1 - PCV)] Future Scheduled 2022-05-11 INFLUENZA VACCINE Method [facility] Hospital Test 15:04:56 [code = INFLUENZA VACCINE] Future Scheduled 2022-02-05 COVID-19 Vaccination [facility] [place] Test 07:04:18 (#1) [code = COVID-19 [facility] (#[facility] Center Future Scheduled 2022-02-05 COVID-19 Vaccination [facility] [place] Test 07:04:18 (#1) [code = COVID-19 [facility] (#1)] Center Encounters Start End Encounter Admission Attending Care Care Encounter Source Date/Time Date/Time Type Type Clinicians Facility Department ID 2022-06-[address] [facility] [id number] Common 09:22:00 Jasson [id number] [facility] 2022-03-25 Outpatient [facility] [id number] Common 09:34:00 [id number] [facility] 2021-06-07 Outpatient SYSTEM, SRAVANTHI FISHMAN [id number] 13:41:45 PROVIDER Pavan garcia 2020-05-17 Outpatient SYSTEM, SRAVANTHI FISHMAN [id number] 14:27:34 PROVIDER Pavan o radha 2022-06-13 2022-06-13 OFFICE [facility] [id number] Co mmon 00:00:00 00:00:00 VISIT NEW Spir it PT LEVEL 3 [facility] 2021-06-05 2021-06-05 Office ARLENE Bolaños, 1.2.840.1 [id number] Univers 10:30:00 10:52:09 Visit Ancelmo [id number] ity of 3.412.2.7 [place] .3.184980 .8 [facility] 2021-06-05 2021-06-05 Ancillary ARLENE Bolaños, 1.2.840.1 [id number] Univers 08:00:00 10:00:00 Procedure Ancelmo 29527.1.1 it y of 3.412.2.7 [place] .3.928828 .8 [facility] 2021-06-05 2021-06-05 Travel 1.2.840.1 [id number] Univers 00:00:00 00:00:00 [id number] [id number] ity of 3.412.2.7 [place].698 [place] .[place].712[place] 084.8 .8 [facility] 2021-02-05 2021-02-05 Outpatient [facility] [id number] Univers 00:00:00 00:00:00 [facility] 2020-08-06 2020-08-06 Outpatient R [facility] [id number] Univers 16:15:00 16:15:00 [facility] 2020-07-09 2020-07-09 Outpatient R [facility] [id number] Univers 16:00:00 16:00:00 [facility] 2020-06-01 2020-06-01 Outpatient ARLENE BOLAÑOS MDA MDA [id number] 12:00:56 13:29:45 ANCELMO garcia 2020-05-30 2020-05-30 Outpatient ARLENE CASON MDA MDA [id number] 11:28:54 23:59:00 BENJAMIN garcia 2020-05-30 2020-05-30 Outpatient ARLENE CASON MDA MDA [id number] 09:07:56 09:07:56 BENJAMIN garcia 2020-05-30 2020-05-30 Outpatient EL ROBBI, MDA MDA [id number] MD 08:50:41 08:50:49 ANCELMO Pavna gage garcia 2020-05-29 2020-05-29 Outpatient ROBBI, MDA MDA [id number] MD 22:29:46 22:29:46 ANCELMO almonte radha 2020-05-29 2020-05-29 Outpatient ROBBI, MDA MDA [id number] MD 22:29:46 22:29:46 ANCELMO Pavan gage garcia 2020-05-29 2020-05-29 Outpatient ROBBI, MDA MDA [id number] MD 22:29:45 22:29:45 ANCELMO Pavan gage garcia 2020-05-29 2020-05-29 Outpatient ROBBI, MDA MDA [id number] MD 22:29:44 22:29:44 ANCELMO Pavan gage garcia 2020-05-29 2020-05-29 Outpatient ROBBI, MDA MDA [id number] MD 22:29:44 22:29:44 ANCELMO Pavan gage garcia 2020-05-29 2020-05-29 Outpatient ROBBI, MDA MDA [id number] MD 22:29:43 22:29:43 ANCELMO Pavan gage garcia 2020-05-29 2020-05-29 Outpatient ROBBI, MDA MDA [id number] MD 22:29:42 22:29:42 ANCELMO Pavan gage garcia 2020-05-29 2020-05-29 Outpatient ROBBI, MDA MDA [id number] MD 22:29:41 22:29:41 ANCELMO Pavan gage garcia 2020-05-29 2020-05-29 Outpatient ROBBI, MDA MDA [id number] MD 22:29:41 22:29:41 ANCELMO Pavan gage garcia 2020-05-29 2020-05-29 Outpatient ROBBI, MDA MDA [id number] MD 22:29:40 22:29:40 ANCELMO Pavan gage garcia 2020-05-29 2020-05-29 Outpatient ROBBI, MDA MDA [id number] MD 22:29:39 22:29:39 ANCELMO Pavan gage garcia 2020-05-29 2020-05-29 Outpatient ROBBI, MDA MDA [id number] MD 22:29:39 22:29:39 ANCELMO Leyvaers gage garcia 2020-05-29 2020-05-29 Outpatient ROBBI, MDA MDA [id number] MD 22:29:38 22:29:38 ANCELMO garcia 2020-05-29 2020-05-29 Outpatient ROBBI SRAVANTHI FISHMAN [id number] 22:29:37 22:29:37 ANCELMO garcia 2020-05-27 2020-05-27 Outpatient EL SRAVANTHI BOLAÑOS [facility] [id number] 13:36:24 13:36:24 ANCELMO garcia 2020-04-24 2020-04-24 [address] [facility] [id number] Univers 00:00:00 00:00:00 ity [facility] 2020-04-18 2020-04-18 Outpatient R [facility] [id number] Univers 00:00:00 [facility] 2020-03-26 2020-03-26 Outpatient R [facility] [id number] Univers 00:00:00 00:00:00 [facility] Results This patient has no known results.
[2023-01-15] MEDS ORDERED: NA CHLORIDE 0.9% 1,000 ML ONE (09:46)
[2023-01-15] MEDS ORDERED: ONDANSETRON 4 MG/2 ML VIAL ONE (09:46)
[2023-01-15] MEDS ORDERED: KETOROLAC 30 MG/ML INJ ONE (09:46)
[2023-01-15 09:51] LABS: Absolute Lymphocytes (CBC) 0.5 K/uL (0.7-4.9); Hematocrit 46.7 % (39.6-49.0); Lymphocytes % 4.5 % (15.3-44.8); MCV 83.8 fL (80-100); MPV 8.9 fL (7.6-11.3); RBC Red Blood Cell Count 5.56 M/uL (4.33-5.43)
[2023-01-15 10:10] LABS: Albumin 4.1 g/dL (3.4-5.0); Bilirubin Total 1.9 mg/dL (0.2-1.0); Potassium 4.4 mEq/L (3.5-5.1); Protein, Total 7.3 g/dL (6.4-8.2)
--- NOTE | 2023-01-15 11:44 | RAD REPORT ---
EXAM DESCRIPTION: CT - Abdomen Pelvis W Contrast - 01/15/2023 11:18 am CLINICAL HISTORY: vomiting, hx of umbilical hernia;Abd pain COMPARISON: Abdomen W Contrast dated 09/11/2022 TECHNIQUE: Thin cut axial CT imaging of the abdomen and pelvis was performed following intravenous a dministration of 100 mL Isovue 300. Multiplanar reformats were generated and reviewed. All CT scans are performed using dose optimization technique as appropriate and may include automated exposure control or mA/KV adjustment according to patient size. FINDINGS: No suspicious findings in the lung bases. The liver, spleen, and pancreas show no suspicious findings. Single gallstone near the neck of the ga llbladder. No intra or extrahepatic biliary ductal dilation Symmetric renal function is seen with no hydronephrosis or suspicious renal mass. Stable bilateral re nal cysts, the largest at the left upper to midpole measuring 4.2 x 3.6 centimeter. Dilated small bowel loops throughout the central abdomen, with air-fluid levels. Fecalization along t he most distal dilated ileal segment in the right lower quadrant, with relatively gradual transition to nondistended bowel along a segment of ileum demonstrating wall thickening and mucosal hyperenhance ment, see coronal images 22-30. Colonic diverticulosis. No free air, free fluid or inflammatory stran ding. No suspicious mass or bulky lymphadenopathy. Small fat containing inguinal hernia. The urinary bladder is without significant finding. No suspicious bony findings. IMPRESSION: Dilated small bowel suggesting ileus, with relatively gradual transition to nondistended the ileum along a segment of ileum demonstrating wall thickening and mucosal hyperenhancement. This segment could represent acute or chronic inflammation, possibly in the setting of inflammatory bowel disease.
--- NOTE | 2023-01-15 12:05 | EDPHYS ---
Physician Documentation [facility] Name: Rick Giron Age: 67 yrs Sex: Male : 1955 Arrival Date: 01/15/2023 Time: 09:12 Bed 6 Private MD: Harjinder Mendoza B ED Physician Milton Kelley HPI: 01/15 10:41 This 67 yrs old Male presents to ER via Ambulatory with complaints of bs3 Vomiting. 10:41 Patient has a history of diabetes, hypertension chronic umbilical hernia presenting bs3 with vomiting that started at 3 to 4 am, he has decreased flatus as well no chest pain shortness of breath no diarrhea he notes a crampy abdominal pain as well he notes a similar episode in June which he was seen here for but his work-up was nondiagnostic. Historical: - Allergies: 09:16 ambien; ll1 09:16 Codeine; ll1 - PMHx: 09:16 DM type 2; HTN; ll1 - Immunization history:: Client reports receiving the 2nd dose of the Covid vaccine. - Social history:: Smoking status: Patient denies any tobacco usage or history of. ROS: 10:41 Constitutional: Negative for fever, chills bs3 10:41 All other systems are negative. Exam: 10:41 Constitutional: This is a well developed, well nourished patient who is awake, alert, bs3 and in no acute distress. Head/Face: Normocephalic, atraumatic. Eyes: Pupils equal round and reactive to light, extra-ocular motions intact. Lids and lashes normal. ENT: mmm, no posterior phyarngeal erythema Neck: Trachea midline, no thyromegaly, no neck stiffness Chest/axilla: Normal chest wall appearance and motion. Nontender with no deformity. No lesions are appreciated. Cardiovascular: Regular rate and rhythm with a normal S1 and S2. symmetric pulses in upper extremities Respiratory: Lungs have equal breath sounds bilaterally, clear to auscultation, no respiratory distress Abdomen/GI: Umbilical hernia soft, diffuse mild tenderness no peritoneal signs MS/ Extremity: Pulses equal, no cyanosis. Neurovascular intact. Full, normal range of motion. Neuro: Awake and alert, GCS 15, oriented to person, place, time, and situation. Cranial nerves II-XII grossly intact. Motor strength 5/5 in all extremities. Sensory grossly intact. Psych: Awake, alert, with orientation to person, place and time. Behavior, mood, and affect are within normal limits. Vital Signs: 09:16 BP 197 / 82; Pulse 52; Resp 18; Temp 98.1; Pulse Ox 97% ; Weight 90.72 kg; Height 5 ft. ll1 6 in. ; Pain 8/10; 09:30 BP 165 / 82; Pulse 62; Resp 16; Pulse Ox 97% ; db 12:19 BP 145 / 87; Pulse 89; Resp 16; Temp 98.2(TE); Pulse Ox 98% on R/A; Pain 0/10; iw 09:16 Body Mass Index 32.28 (90.72 kg, 167.64 cm) ll1 09:16 Pain Scale: Adult ll1 12:19 Pain Scale: Adult iw MDM: 09:15 Patient medically screened. bs3 10:41 Data reviewed: vital signs, nurses notes. ED course: Patient with nausea and vomiting bs3 we will check labs we will hydrate we will rule out obstruction and reassess labs notable for chronic renal insufficiency patient advised to follow-up with primary care regarding this. 11:56 ED course: CT notable for possible ileus patient feeling better on reassessment there bs3 is no signs of acute bowel obstruction advised to follow-up with Dr. Moore GI given a copy of his CT return precautions given. 01/15 09:22 Order name: CBC with Diff; Complete Time: 10:27 bs3 01/15 09:22 Order name: Comprehensive Metabolic Panel; Complete Time: 10:27 bs3 01/15 09:22 Order name: Lipase; Complete Time: 10:27 bs3 01/15 09:22 Order name: XRAY Chest (1 view) bs3 01/15 09:22 Order name: CT Abd/Pelvis - IV Contrast Only; Complete Time: 11:55 bs3 Administered Medications: 09:44 Drug: NS 0.9% IV 1000 ml Route: IV; Rate: 1000 ml; Site: right antecubital; db 11:04 Follow up: Response: No adverse reaction; IV Status: Completed infusion; IV Intake: db 1000ml 09:44 Drug: Ondansetron IVP 8 mg Route: IVP; Site: right antecubital; db 12:15 Follow up: Response: No adverse reaction; Nausea is decreased iw 09:44 Drug: Ketorolac IVP 15 mg Route: IVP; Site: right antecubital; 10:44 Follow up: Response: No adverse reaction iw Disposition Summary: 01/15/23 12:04 Discharge Ordered Location: Home bs3 Problem: new bs3 Symptoms: have improved bs3 Condition: Stable bs3 Diagnosis - Vomiting bs3 Followup: bs3 - With: Brian Reis MD - When: 5 - 6 days - Reason: Re-evaluation by your physician Discharge Instructions: - Discharge Summary Sheet bs3 - Vomiting, Adult bs3 Forms: - Medication Reconciliation Form bs3 - Thank You Letter bs3 - Antibiotic Education bs3 - Prescription Opioid Use bs3 Prescriptions: - ondansetron 8 mg Oral tablet,disintegrating - take 1 tablet by ORAL route every 8 hours; 12 tablet; Refills: 0, Product bs3 Selection Permitted Signatures: Dispatcher [employer] Vinh Pressley RN RN ll1 Milton Kelley MD MD bs3 Marva Bills RN RN db Lynne Castrejon RN iw
--- NOTE | 2023-01-15 12:05 | ER ---
Nurse's Notes [facility] Name: Rick Giron Age: 67 yrs Sex: Male : 1955 Arrival Date: 01/15/2023 Time: 09:12 Bed 6 Private MD: Harjinder Mendoza B Diagnosis: Vomiting Presentation: 01/15 09:16 Chief complaint: Patient states: Abdominal cramping with N/V since 3 AM. Coronavirus ll1 screen: Vaccine status: Patient reports receiving the 2nd dose of the covid vaccine. Client denies travel out of the [place] in the last 14 days. fatigue, nausea, vomiting. Ebola Screen: Patient denies travel to an Ebola-affected area in the 21 days before illness onset. Initial Sepsis Screen: Does the patient meet any 2 criteria? No. Patient's initial sepsis screen is negative. Does the patient have a suspected source of infection? Yes: Acute abdominal pain. Risk Assessment: Do you want to hurt yourself or someone else? Patient reports no desire to harm self or others. Onset of symptoms was January 15, 2023. 09:16 Method Of Arrival: Ambulatory [facility] 09:16 Acuity: CAL 3 ll1 Triage Assessment: 09:18 General: Appears uncomfortable, ill, Behavior is calm, cooperative, appropriate for 1 age. Pain: Complains of pain in abdomen Pain currently is 8 out of 10 on a pain scale. Quality of pain is described as crampy, Pain began 3 AM. Neuro: Reports weakness. GI: Reports cramping, nausea, vomiting. Historical: - Allergies: 09:16 ambien; ll1 09:16 Codeine; ll1 - PMHx: 09:16 DM type 2; HTN; ll1 - Immunization history:: Client reports receiving the 2nd dose of the Covid vaccine. - Social history:: Smoking status: Patient denies any tobacco usage or history of. Screenin:45 [facility] ED Fall Risk Assessment (Adult) History of falling in the last 3 months, db including since admission No falls in past 3 months (0 pts) Confusion or Disorientation No (0 pts) Intoxicated or Sedated No (0 pts) Impaired Gait No (0 pts) Mobility Assist Device Used No (0 pt) Altered Elimination No (0 pt) Score/Fall Risk Level 0 - 2 = Low Risk Oriented to surroundings, Maintained a safe environment. Abuse screen: Denies threats or abuse. Denies injuries from another. Nutritional screening: No deficits noted. Tuberculosis screening: No symptoms or risk factors identified. Assessment: 09:44 Reassessment: Patient appears in no apparent distress at this time. Patient and/or db family updated on plan of care and expected duration. Pain level reassessed. Patient is alert, oriented x 3, equal unlabored respirations, skin warm/dry/pink. Nausea and vomiting. General: Appears in no apparent distress. comfortable, Behavior is calm, cooperative. Pain: Complains of pain in abdomen. Neuro: Level of Consciousness is awake, alert, obeys commands, Oriented to person, place, time, situation. Respiratory: Airway is patent Respiratory effort is even, unlabored, Respiratory pattern is regular, symmetrical. GI: Abdomen is flat, non-distended, Abd is soft. 11:19 Reassessment: patient is in CT. db 12:07 Reassessment: Patient appears in no apparent distress at this time. Patient and/or iw family updated on plan of care and expected duration. Pain level reassessed. Patient is alert, oriented x 3, equal unlabored respirations, skin warm/dry/pink. pt sitting up drinking water. Vital Signs: 09:16 BP 197 / 82; Pulse 52; Resp 18; Temp 98.1; Pulse Ox 97% ; Weight 90.72 kg; Height 5 ft. ll1 6 in. ; Pain 8/10; 09:30 BP 165 / 82; Pulse 62; Resp 16; Pulse Ox 97% ; db 12:19 BP 145 / 87; Pulse 89; Resp 16; Temp 98.2(TE); Pulse Ox 98% on R/A; Pain 0/10; iw 09:16 Body Mass Index 32.28 (90.72 kg, 167.64 cm) ll1 09:16 Pain Scale: Adult ll1 12:19 Pain Scale: Adult iw ED Course: 09:13 Arm band placed on Patient placed in an exam room, on a stretcher. ll1 09:14 Patient arrived in ED. mr 09:14 Harjinder Mendoza MD is Private Physician. mr 09:14 Milton Kelley MD is Attending Physician. bs3 09:18 Triage completed. ll1 09:28 Bills, Marva, RN is Primary Nurse. db 09:35 Inserted saline lock: 20 gauge in right antecubital area, using aseptic technique. db Blood collected. 09:46 Patient has correct armband on for positive identification. Bed in low position. Call db light in reach. Side rails up X 1. Client placed on continuous cardiac and pulse oximetry monitoring. NIBP monitoring applied. 10:21 XRAY Chest (1 view) In Process Unspecified. EDMS 11:19 CT Abd/Pelvis - IV Contrast Only In Process Unspecified. EDMS 12:03 Brian Reis MD is Referral Physician. bs3 12:19 No provider procedures requiring assistance completed. IV discontinued, intact, iw bleeding controlled, No redness/swelling at site. Pressure dressing applied. Administered Medications: 09:44 Drug: NS 0.9% IV 1000 ml Route: IV; Rate: 1000 ml; Site: right antecubital; db 11:04 Follow up: Response: No adverse reaction; IV Status: Completed infusion; IV Intake: db 1000ml 09:44 Drug: Ondansetron IVP 8 mg Route: IVP; Site: right antecubital; db 12:15 Follow up: Response: No adverse reaction; Nausea is decreased iw 09:44 Drug: Ketorolac IVP 15 mg Route: IVP; Site: right antecubital; db 10:44 Follow up: Response: No adverse reaction iw Medication: 12:19 VIS not applicable for this client. iw Intake: 11:04 IV: 1000ml; Total: 1000ml. db Outcome: 12:04 Discharge ordered by . bs3 12:19 Discharged to home ambulatory, with family. iw 12:19 Condition: good 12:19 Discharge instructions given to patient, family, Instructed on discharge instructions, follow up and referral plans. medication usage, Demonstrated understanding of instructions, follow-up care, medications, Prescriptions given X 1. 12:19 Patient left the ED. iw Signatures: Dispatcher [employer] EDAR Stan Jeanie Lynne Mcfarland RN RN iw Vinh Moreno RN RN ll1 Milton Kelley MD MD bs3 Marva Bills RN RN db
[2023-01-15 12:45] VITALS: BP 145/87; TEMP 98.2; O2SAT 98
== END 2023-01-15 12:19 | disposition home or self-care (01) ==
LOC: ER 09:12
DX: R11.10 Vomiting, unspecified (principal); E11.9 Type 2 diabetes mellitus without complications; I10 Essential (primary) hypertension; Z88.5 Allergy status to narcotic agent; Z88.8 Allergy status to other drugs, medicaments and biological substances
CPT/HCPCS: 96361; 85025; 36415; 83690; 80053; 74177; 71045; 96375; 96374; 99284; Q9967; J2405; J7030

== ENCOUNTER 2023-07-31 04:55 | Observation (INO) | payer OTHER ==
--- OUTSIDE RECORDS SUMMARY | 2023-07-31 04:58 | XMS REPORT | Clinical Summary ---
Author Name Unknown Organization [facility] Address [address] [place] [address] Care Team Providers Care Car Sweeper Name Role Phone Ancelmo Bolaños MD Primary Care Provider [phone] Harjinder Mendoza MD Unavailable [phone] Ancelmo Rutherford MD Unavailable [phone] Allergies Active Allergy Reactions Criticality Noted Date Comments Ambien Larry 06/01/2020 Sonya Dalal,Other (See Comments) 04/25/2019 Zolpidem 04/25/2019 Other reaction(s): Unknown Reaction Medications Medication Sig Dispensed Refills Start Date End Date Status 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 0 05/24/2020 Active lithium carbonate (ESKALITH) 450 MG CR tablet Take 1 tablet by mouth daily. 0 05/22/2020 Active doxazosin (CARDURA) 2 mg tablet Take 1 tablet by mouth at bedtime. 0 03/16/2020 Active MAGNESIUM ORAL Take by mouth. 0 Active vitamin B complex (B COMPLEX-VITAMIN B12 ORAL) Take by mouth. 0 Active cholecalciferol, vitamin D3, (VITAMIN D3 ORAL) Take by mouth. 0 Active zinc gluconate 50 mg tablet Take 50 mg by mouth daily. 0 Active nebivolol (BYSTOLIC) 10 mg tablet Take 1 tablet by mouth daily. 0 06/03/2021 Active Surgical History Surgery Date Site/Laterality Comments COLONOSCOPY 08/03/2019 - 08/02/2020 I have had 3 colonoscopy. Last one was this year. Medical History Medical History Date Comments Unspecified lump in unspecified breast 2013 Nodules on my Thyroid. Diverticulitis 2009 I have had 3 Col onoscopys. Last one this [id number]. Polyp of colon 2009 I have had 3 Col onoscopys. Last one this [id number]. Gallstone 2009 With each ultras ound I have the gallstone has shrunk. Bipolar disorder 1989 I take [place] once a day. 450mg Family History Medical History Relation Name Comments Kidney cancer Father Issac Giron My Father has one kidney since . He had cancer on it. His kidney Doctor was able to remove all of it with any Flako treatments. He is still living at 86yrs. old. Pancreatic cancer Mother May Moreno My mother had Pancreatic Cancer. She in 2008. Relation Name Status Comments Father Issac Giron Mother May Moreno Social History Tobacco Use Types Packs/Day Years Used Date Smoking Tobacco: Never Smokeless Tobacco: Never Comments:I have neve smoked and have not drank any alcohol in 40yrs. Alcohol Use Standard Drinks/Week Comments Not Currently 0 (1 standard drink = 0.6 oz pure alcohol) I have not drank any alcohol in 40yrs. Sex and Gender Information Value Date Recorded Sex Assigned at Male 05/27/2020 8:22 PM CDT Gender Identity Male 05/27/2020 8:22 PM CDT Sexual Orientation Straight 05/27/2020 8: 22 PM CDT Job Start Date Occupation Industry Not on file Not on file Not on file Obstetrics History Plan of Treatment Health Maintenance Due Date Last Done Comments COVID-19 Vaccination (#1) 1955 Care Teams Car Sweeper Relationship Specialty Start Date End Date Ancelmo Bolaños MD [address] [place] [id number] PCP - General Surgical Oncology 05/17/20 Harjinder Mendoza MD [address] [place] [address] [id number] PCP - External Primary Care Provider Family Practice 05/17/20 Ancelmo Rutherford MD [address] [place] [id number] PCP - External Follow Up A Internal Medicine 05/17/20
[2023-07-31] MEDS ORDERED: KETOROLAC 30 MG/ML INJ ONE (05:31)
[2023-07-31] MEDS ORDERED: ONDANSETRON 4 MG/2 ML VIAL ONE (05:31)
[2023-07-31] MEDS ORDERED: FAMOTIDINE 20 MG/2 ML VIAL IV ONE (05:32)
[2023-07-31] MEDS ORDERED: NA CHLORIDE 0.9% 1,000 ML ONE ×2 (05:32→06:06)
[2023-07-31 05:39] LABS: Absolute Lymphocytes (CBC) 0.7 K/uL (0.7-4.9); Hematocrit 48.4 % (39.6-49.0); Lymphocytes % 4.6 % (15.3-44.8); MCV 85.2 fL (80-100); MPV 8.9 fL (7.6-11.3); Platelets 249 thou/uL (152-406); RBC Red Blood Cell Count 5.68 M/uL (4.33-5.43)
[2023-07-31 06:00] LABS: Albumin 4.3 g/dL (3.4-5.0); Bilirubin Total 2.3 mg/dL (0.2-1.0); Potassium 4.5 mEq/L (3.5-5.1); Protein, Total 7.7 g/dL (6.4-8.2)
[2023-07-31] MEDS ORDERED: PIPERACIL/TAZO 3.375 GM VIAL IV ONE (06:24)
[2023-07-31] MEDS ORDERED: NA CHLORIDE 0.9% 100 ML ONE (06:24)
[2023-07-31 06:45] LABS: Specific Gravity 1.023 (1.005-1.030); Urine Bacteria None Seen /HPF (<20); Urine Bilirubin NEGATIVE (Negative); Urine Blood Negative (Negative); Urine Clarity Clear (Clear); Urine Color Light-Yellow (Yellow); Urine Glucose NEGATIVE (Negative); Urine Mucus Slight /HPF (None Seen); Urine Protein 2+ (Negative); Urine RBC <5 /HPF (None Seen); Urine Urobilinogen Normal (Normal); Urine pH 5.5 (5.0-7.0)
--- NOTE | 2023-07-31 07:00 | EDPHYS ---
Physician Documentation [facility] Name: Rick Giron Age: 68 yrs Sex: Male : 1955 Arrival Date: 07/31/2023 Time: 04:55 Bed 15 Private MD: ED Physician Abran Berg HPI: 07/31 06:03 This 68 yrs old Male presents to ER via Ambulatory with complaints of maria del carmen Nausea/Vomiting, Abdominal Pain. 06:03 The patient presents to the emergency department with nausea, vomiting, described as. maria del carmen Onset: The symptoms/episode began/occurred last night. Possible causes: unknown. The symptoms are aggravated by nothing. The symptoms are alleviated by nothing. Associated signs and symptoms: The patient has no apparent associated signs or symptoms. Severity of symptoms: At their worst the symptoms were mild in the emergency department the symptoms are unchanged. Historical: - Allergies: 05:14 ambien; jb4 05:14 Codeine; jb4 - PMHx: 05:14 DM type 2; HTN; Umbilical hernia; jb4 - PSHx: 05:14 None; jb4 - Immunization history:: Adult Immunizations not up to date. - Social history:: Smoking status: Patient denies any tobacco usage or history of. ROS: 06:06 Constitutional: Negative for fever, chills, and weight loss, Eyes: Negative for injury, maria del carmen pain, redness, and discharge, ENT: Negative for injury, pain, and discharge, Neck: Negative for injury, pain, and swelling, Cardiovascular: Negative for chest pain, palpitations, and edema, Respiratory: Negative for shortness of breath, cough, wheezing, and pleuritic chest pain, Back: Negative for injury and pain, : Negative for injury, bleeding, discharge, and swelling, MS/Extremity: Negative for injury and deformity, Skin: Negative for injury, rash, and discoloration, Neuro: Negative for headache, weakness, numbness, tingling, and seizure, Psych: Negative for depression, anxiety, suicide ideation, homicidal ideation, and hallucinations, Allergy/Immunology: Negative for hives, rash, and allergies, Endocrine: Negative for neck swelling, polydipsia, polyuria, polyphagia, and marked weight changes, Hematologic/Lymphatic: Negative for swollen nodes, abnormal bleeding, and unusual bruising, 06:06 Abdomen/GI: Positive for abdominal pain, nausea and vomiting, Exam: 06:06 Constitutional: This is a well developed, well nourished patient who is awake, alert, maria del carmen and in no acute distress. Head/Face: Normocephalic, atraumatic. Eyes: Pupils equal round and reactive to light, extra-ocular motions intact. Lids and lashes normal. Conjunctiva and sclera are non-icteric and not injected. Cornea within normal limits. Periorbital areas with no swelling, redness, or edema. ENT: Nares patent. No nasal discharge, no septal abnormalities noted. Tympanic membranes are normal and external auditory canals are clear. Oropharynx with no redness, swelling, or masses, exudates, or evidence of obstruction, uvula midline. Mucous membranes moist. Neck: Trachea midline, no thyromegaly or masses palpated, and no cervical lymphadenopathy. Supple, full range of motion without nuchal rigidity, or vertebral point tenderness. No Meningismus. Chest/axilla: Normal chest wall appearance and motion. Nontender with no deformity. No lesions are appreciated. Cardiovascular: Regular rate and rhythm with a normal S1 and S2. No gallops, murmurs, or rubs. Normal PMI, no JVD. No pulse deficits. Respiratory: Lungs have equal breath sounds bilaterally, clear to auscultation and percussion. No rales, rhonchi or wheezes noted. No increased work of breathing, no retractions or nasal flaring. Back: No spinal tenderness. No costovertebral tenderness. Full range of motion. Male : Normal genitalia with no discharge or lesions. Skin: Warm, dry with normal turgor. Normal color with no rashes, no lesions, and no evidence of cellulitis. MS/ Extremity: Pulses equal, no cyanosis. Neurovascular intact. Full, normal range of motion. Neuro: Awake and alert, GCS 15, oriented to person, place, time, and situation. Cranial nerves II-XII grossly intact. Motor strength 5/5 in all extremities. Sensory grossly intact. Cerebellar exam normal. Normal gait. Psych: Awake, alert, with orientation to person, place and time. Behavior, mood, and affect are within normal limits. 06:06 Abdomen/GI: Inspection: abdomen appears normal, Bowel sounds: normal, Palpation: mild abdominal tenderness, in the epigastric area, Liver: no appreciated palpable abnormalities, Hernia: not appreciated, 06:31 ECG was reviewed by the Attending Physician. [facility] Vital Signs: 05:12 BP 166 / 77; Pulse 56; Resp 16; Pulse Ox 97% on R/A; Weight 90.72 kg (R); Height 5 ft. jb4 10 in. (R); Pain 10/10; 05:30 BP 150 / 77; Pulse 58; Resp 16; Pulse Ox 97% on R/A; pf1 06:35 BP 133 / 67; Pulse 60; Resp 16; Pulse Ox 97% on R/A; Pain 0/10; pf1 07:15 BP 121 / 64; Pulse 55; Resp 15; Pulse Ox 96% ; Pain 0/10; jl7 05:12 Body Mass Index 28.70 (90.72 kg, 177.8 cm) jb4 05:12 Pain Scale: Adult jb4 06:35 Pain Scale: Adult pf1 07:15 Pain Scale: Adult jl7 MDM: 05:06 Patient medically screened. cp 06:08 Differential diagnosis: Nonspecific abd pain, gastritis, cholecystitis, pancreatitis, maria del carmen appendicitis, diverticulitis, viral gastroenteritis, gastroenteritis. Data reviewed: vital signs, nurses notes, lab test result(s), EKG, radiologic studies, CT scan, plain films. Consideration of Admission/Observation Patient was admitted/placed on observation. Escalation of care including admission/observation considered. I considered the following discharge prescriptions or medication management in the emergency department Medications were administered in the Emergency Department. See MAR. Independent interpretation of the following test(s) in the Emergency Department EKG: See my EKG interpretation above. Test considered but Not performed: Ultrasound no abd usg. Care significantly affected by the following chronic conditions: Diabetes, Hypertension, Chronic Kidney Disease, umbilical hernia. 07/31 05:03 Order name: CBC with Diff snw 07/31 05:03 Order name: CMP; Complete Time: 06:01 snw 07/31 05:03 Order name: Lipase; Complete Time: 06:01 snw 07/31 05:42 Order name: Manual Differential EDMS 07/31 06:03 Order name: Troponin High Sensitivity; Complete Time: 06:45 maria del carmen 07/31 06:10 Order name: Urinalysis w/ reflexes; Complete Time: 06:47 [facility] 07/31 07:58 Order name: Basic Metabolic Panel EDMS 07/31 07:58 Order name: Basic Metabolic Panel EDMS 07/31 07:58 Order name: Basic Metabolic Panel EDMS 07/31 07:58 Order name: Basic Metabolic Panel EDMS 07/31 07:58 Order name: CBC with Automated Diff EDMS 07/31 07:58 Order name: CBC with Automated Diff EDMS 07/31 07:58 Order name: CBC with Automated Diff EDMS 07/31 07:58 Order name: CBC with Automated Diff EDMS 07/31 07:58 Order name: Magnesium EDMS 07/31 07:58 Order name: Magnesium EDMS 07/31 07:58 Order name: Magnesium EDMS 07/31 07:58 Order name: Magnesium EDMS 07/31 07:58 Order name: Phosphorus EDMS 07/31 07:58 Order name: Phosphorus EDMS 07/31 07:58 Order name: Phosphorus EDMS 07/31 07:58 Order name: Phosphorus EDMS 07/31 07:58 Order name: Troponin High Sensitivity EDMS 07/31 07:58 Order name: Troponin High Sensitivity EDMS 07/31 07:58 Order name: Troponin High Sensitivity EDMS 07/31 06:01 Order name: US Abdomen Limited maria del carmen 07/31 06:27 Order name: Abdomen EDMS 07/31 06:03 Order name: EKG; Complete Time: 06:03 maria del carmen 07/31 05:03 Order name: IV Saline Lock; Complete Time: 05:28 snw 07/31 05:03 Order name: Labs collected and sent; Complete Time: 05:29 snw 07/31 06:03 Order name: EKG - Nurse/Tech; Complete Time: 06:51 maria del carmen EC:31 Rate is 53 beats/min. Rhythm is regular. QRS [place] is Normal. [place] interval is normal. QRS maria del carmen interval is normal. QT interval is normal. No Q waves. T waves are Normal. No ST changes noted. Clinical impression: NSR w/ Non-specific ST/T Changes, Sinus bradycardia, and No evidence of ischemia. Interpreted by me. Reviewed by me. Administered Medications: 05:38 Drug: Famotidine IVP 20 mg IVP once; dilute with 10 mL 0.9% NaCl; give over 2 minutes pf1 Route: IVP; Site: left antecubital; 06:25 Follow up: Response: No adverse reaction pf1 05:39 Drug: NS 0.9% IV 1000 ml IV at 1 bolus Per protocol; 1000 mL bolus Route: IV; Rate: 1 pf1 bolus; Site: left antecubital; 06:25 Follow up: Response: No adverse reaction; IV Status: Completed infusion; IV Intake: pf1 1000ml 05:39 Drug: TORadol - Ketorolac IVP 15 mg IVP once Route: IVP; Site: left antecubital; pf1 06:27 Follow up: Response: No adverse reaction; Marked relief of symptoms; Pain is decreased pf1 05:39 Drug: Ondansetron IVP 4 mg IVP once; over 2 minutes Route: IVP; Site: left antecubital; pf1 06:26 Follow up: Response: No adverse reaction; Marked relief of symptoms pf1 06:10 Drug: NS 0.9% IV 1000 ml IV at 125 ml/hr continuous Route: IV; Rate: 125 ml/hr; Site: pf1 left antecubital; 06:47 Follow up: Response: No adverse reaction pf1 09:05 Follow up: IV Status: Infusion continued upon admission jl7 06:40 Drug: Piperacillin-Tazobactam IVPB 3.375 grams IVPB once over 60 mins; (mix in NS 100 pf1 mL) Route: IVPB; Infused Over: 60 mins; Site: left antecubital; 07:40 Follow up: Response: No adverse reaction; IV Status: Completed infusion; IV Intake: jl7 100ml Disposition Summary: 07/31/23 07:00 Hospitalization Ordered Notes: Hospitalization Status: Observation maria del carmen Provider: Toni Reyes cha [facility] maria del carmen Condition: Stable maria del carmen Problem: new maria del carmen Symptoms: have improved maria del carmen Bed/Room Type: Standard maria del carmen Room Assignment: 218(07/31/23 08:39) iw Diagnosis - Epigastric abdominal tenderness maria del carmen - Other cholelithiasis with obstruction maria del carmen - Elevated white blood cell count maria del carmen - Unspecified kidney failure - CHRONIC maria del carmen Discharge Instructions: - Discharge Summary Sheet pf1 Forms: - Medication Reconciliation Form maria del carmen - Leadership Thank You Letter maria del carmen - SBAR form pf1 Signatures: Dispatcher [employer] Abran Kamara MD MD cha Waters, Shelly, FNP-C VICE PRESIDENT [employer]-[place] Lynne Castrejon RN RN iw Abran Varela PA PA cp Bryson, James, RN RN jb4 Emiliana Melgar RN RN pf1 Sid Pablo RN jl7 Corrections: (The following items were deleted from the chart) 06:27 05:35 Abdomen Pelvis W Con+CT.RAD.BRZ ordered. EDMS EDMS 08:39 07:00 maria del carmen lopez
--- NOTE | 2023-07-31 07:00 | ER ---
Nurse's Notes [facility] Name: Rick Giron Age: 68 yrs Sex: Male : 1955 Arrival Date: 07/31/2023 Time: 04:55 Bed 15 Private MD: Diagnosis: Epigastric abdominal tenderness;Other cholelithiasis with obstruction;Elevated white blood cell count;Unspecified kidney failure-CHRONIC Presentation: 07/31 05:12 Chief complaint: Patient states: 10 pm last night I started having abdominal pain and jb4 N/V. It is the same as the last time I was here in June. Coronavirus screen: At this time, the client does not indicate any symptoms associated with coronavirus-19. Ebola Screen: No symptoms or risks identified at this time. Initial Sepsis Screen: Does the patient meet any 2 criteria? No. Patient's initial sepsis screen is negative. Does the patient have a suspected source of infection? No. Patient's initial sepsis screen is negative. Risk Assessment: Do you want to hurt yourself or someone else? Patient reports no desire to harm self or others. Onset of symptoms was July 30, 2023. 05:12 Method Of Arrival: Ambulatory jb4 05:12 Acuity: CAL 3 jb4 Historical: - Allergies: 05:14 ambien; jb4 05:14 Codeine; jb4 - PMHx: 05:14 DM type 2; HTN; Umbilical hernia; jb4 - PSHx: 05:14 None; jb4 - Immunization history:: Adult Immunizations not up to date. - Social history:: Smoking status: Patient denies any tobacco usage or history of. Screenin:41 [facility] ED Fall Risk Assessment (Adult) History of falling in the last 3 months, pf1 including since admission No falls in past 3 months (0 pts) Confusion or Disorientation No (0 pts) Intoxicated or Sedated No (0 pts) Impaired Gait No (0 pts) Mobility Assist Device Used No (0 pt) Altered Elimination No (0 pt) Score/Fall Risk Level 0 - 2 = Low Risk Oriented to surroundings, Maintained a safe environment, Educated pt \T\ family on fall prevention, incl call for assistance when getting out of bed, Assessed \T\ reinforced patient's understanding of fall precautions, Provided non-skid footwear, Hourly rounding (assess needs \T\ fall precautionary measures) done, Used ambulatory aids as needed (educated on \T\ assisted with), Used gait belt as appropriate. Abuse screen: Denies threats or abuse. Nutritional screening: No deficits noted. Tuberculosis screening: No symptoms or risk factors identified. Assessment: 05:15 General: Appears in no apparent distress. uncomfortable, well groomed, well developed, pf1 Behavior is calm, cooperative, appropriate for age, quiet. 05:15 Pain: Complains of pain in abdomen Pain began 2200 tonight. Neuro: No deficits noted. pf1 Level of Consciousness is awake, alert, obeys commands, Oriented to person, place, time, situation. Cardiovascular: No deficits noted. Capillary refill < 3 seconds Patient's skin is warm and dry. Respiratory: No deficits noted. Airway is patent Respiratory effort is even, unlabored, Respiratory pattern is regular, symmetrical. GI: No deficits noted. Abdomen is round non-distended, Bowel sounds present X 4 quads. Reports lower abdominal pain, upper abdominal pain, nausea, vomiting, since 2200 last night. : No deficits noted. No signs and/or symptoms were reported regarding the genitourinary system. EENT: No deficits noted. No signs and/or symptoms were reported regarding the EENT system. Derm: No deficits noted. No signs and/or symptoms reported regarding the dermatologic system. 06:30 Reassessment: Patient appears in no apparent distress at this time. Patient and/or pf1 family updated on plan of care and expected duration. Pain level reassessed. Patient is alert, oriented x 3, equal unlabored respirations, skin warm/dry/pink. Patient states feeling better. Patient states symptoms have improved. 07:15 Reassessment: Received bedside report, pt A\T\Ox4, denies pain, awaiting [facility] for update jl7 on results and POC. Vital Signs: 05:12 BP 166 / 77; Pulse 56; Resp 16; Pulse Ox 97% on R/A; Weight 90.72 kg (R); Height 5 ft. jb4 10 in. (R); Pain 10/10; 05:30 BP 150 / 77; Pulse 58; Resp 16; Pulse Ox 97% on R/A; pf1 06:35 BP 133 / 67; Pulse 60; Resp 16; Pulse Ox 97% on R/A; Pain 0/10; pf1 07:15 BP 121 / 64; Pulse 55; Resp 15; Pulse Ox 96% ; Pain 0/10; jl7 05:12 Body Mass Index 28.70 (90.72 kg, 177.8 cm) jb4 05:12 Pain Scale: Adult jb4 06:35 Pain Scale: Adult pf1 07:15 Pain Scale: Adult jl7 ED Course: 04:58 Patient arrived in ED. gm2 05:06 Abran Berg MD is Attending Physician. cp 05:13 Triage completed. jb4 05:14 Arm band placed on right wrist. jb4 05:15 Patient has correct armband on for positive identification. Placed in gown. Bed in low pf1 position. Call light in reach. Side rails up X 1. 05:20 No provider procedures requiring assistance completed. Inserted saline lock: 22 gauge pf1 in left antecubital area, using aseptic technique. Blood collected. 06:28 Urinalysis w/ reflexes Sent. pf1 06:31 Abdomen In Process Unspecified. EDMS 06:57 US Abdomen Limited In Process Unspecified. EDMS 06:57 Toni Reyes MD is Hospitalizing Provider. maria del carmen 07:12 Emiliana Melgar RN is Primary Nurse. pf1 07:12 Report given to VI Lau. pf1 07:30 Provided Education on: use of call jain. jl7 09:06 Patient admitted, IV remains in place. intact, No redness/swelling at site. jl7 Administered Medications: 05:38 Drug: Famotidine IVP 20 mg IVP once; dilute with 10 mL 0.9% NaCl; give over 2 minutes pf1 Route: IVP; Site: left antecubital; 06:25 Follow up: Response: No adverse reaction pf1 05:39 Drug: NS 0.9% IV 1000 ml IV at 1 bolus Per protocol; 1000 mL bolus Route: IV; Rate: 1 pf1 bolus; Site: left antecubital; 06:25 Follow up: Response: No adverse reaction; IV Status: Completed infusion; IV Intake: pf1 1000ml 05:39 Drug: TORadol - Ketorolac IVP 15 mg IVP once Route: IVP; Site: left antecubital; pf1 06:27 Follow up: Response: No adverse reaction; Marked relief of symptoms; Pain is decreased pf1 05:39 Drug: Ondansetron IVP 4 mg IVP once; over 2 minutes Route: IVP; Site: left antecubital; pf1 06:26 Follow up: Response: No adverse reaction; Marked relief of symptoms pf1 06:10 Drug: NS 0.9% IV 1000 ml IV at 125 ml/hr continuous Route: IV; Rate: 125 ml/hr; Site: pf1 left antecubital; 06:47 Follow up: Response: No adverse reaction pf1 09:05 Follow up: IV Status: Infusion continued upon admission jl7 06:40 Drug: Piperacillin-Tazobactam IVPB 3.375 grams IVPB once over 60 mins; (mix in NS 100 pf1 mL) Route: IVPB; Infused Over: 60 mins; Site: left antecubital; 07:40 Follow up: Response: No adverse reaction; IV Status: Completed infusion; IV Intake: jl7 100ml Medication: 09:06 VIS not applicable for this client. jl7 Intake: 06:25 IV: 1000ml; Total: 1000ml. pf1 07:40 IV: 100ml; Total: 1100ml. jl7 Outcome: 07:00 Decision to Hospitalize by Provider. maria del carmen 10:04 Patient left the ED. eb Signatures: Dispatcher [employer] EDAbran Flor MD MD cha Page, Corey, PA PA cp Bryson, James, VI [email or web address] Sid Pablo RN RN jl7 Maria Elena Cisneros Pamala, RN RN pf1 Nancy Peraza 2
--- NOTE | 2023-07-31 07:42 | RAD REPORT ---
EXAM DESCRIPTION: US - Abdomen Exam Limited - 07/31/2023 6:55 am CLINICAL HISTORY: ABD PAIN COMPARISON: Abdomen Exam Limited dated 06/04/2022 FINDINGS: The gallbladder demonstrates several shadowing gallstones. No pericholecystic fluid or gal lbladder wall thickening. The common bile duct is normal measuring 5 mm. The liver demonstrates no findings of intrahepatic biliary dilatation. IMPRESSION: Cholelithiasis.
[2023-07-31] MEDS ORDERED: ONDANSETRON 4 MG/2 ML VIAL IV PRN (07:51)
[2023-07-31] MEDS ORDERED: ACETAMINOPHEN 500 MG TAB PO PRN (07:51)
[2023-07-31] MEDS ORDERED: ACETAMINOPHEN 325 MG TABLET PO PRN (07:51)
[2023-07-31] MEDS ORDERED: NA CHLORIDE 0.9% 1,000 ML IV SCH (08:00)
[2023-07-31 08:21] LABS: Blood Morphology Comment NOT SEEN (NOT SEEN); Platelet Estimate ADEQ
[2023-07-31] MEDS: INSULIN REGULAR (HUMAN) 100 UNIT/ML SQ SCH ×3 (11:30→21:00)
--- NOTE | 2023-07-31 12:07 | P.HP ---
Certification for Inpatient Patient admitted to: Observation With expected LOS: <2 Midnights Patient will require the following post-hospital care: None Practitioner: I am a practitioner with admitting privileges, knowledge of patient current condition, hospital course, and medical plan of care. Services: Services provided to patient in accordance with Admission requirements found in Title 42 Section 412.3 of the Code of Federal Regulations Patient History Date of Service: 07/31/23 Reason for admission: Acute Enteritis History of Present Illness: Rick Giron is a 68-year-old male with a past medical history of hypertension, diabetes type 2, umbilical hernia, who presents to the ED with complaints of epigastric pain that started last night 10 PM. His last episode was in June of this year. He recalls his previous visit was in January of 2023 then coming back for an Abdominal CT in June showing Cholelithiasis without evidence of cholecystitis. Ultrasound abdomen reveals "The gallbladder demonstrates several shadowing gallstones. No pericholecystic fluid or gallbladder wall thickening. The common bile duct is normal measuring 5 mm. The liver demonstrates no findings of intrahepatic biliary dilatation. Cholelithiasis." CT abdomen pelvis reads " stranding surrounding the small bowel which can be seen with enteritis, colonic diverticulosis, simple cyst in left kidney" Initial vitals BP 166 / 77; Pulse 56; Resp 16; Pulse Ox 97% on R/A. Laboratory evaluation WBC 15.6, H&H 16/48, BUN/creatinine 31/1.61, GFR 46, potassium 4.5, serum glucose 230, lipase 36, Tbili 2.3. Of note: He was recommended to see GI at which time he made an appointment for an upper GI. While preparing for the procedure, his heart rate was too low per anesthesiology, he was then referred to cardiology. He wore a heart monitor for 1 week and will get results soon. He reports having a low heart rate is his baseline. Rick will be admitted to hospitalist service for further evaluation and treatment of acute enteritis. Allergies codeine Allergy (Severe, Verified 06/04/22 14:03) Itching/Hives/Rash zolpidem [From Ambien] Allergy (Severe, Verified 06/04/22 14:03) Shortness of breath Home Medications: Dapagliflozin Propanediol [Farxiga] 5 mg PO DAILY 06/04/22 [place] Carbonate [[place] Carbonate ER] 450 mg PO DAILY 06/04/22 Amlodipine [Norvasc*] 10 mg PO DAILY #30 tab 06/05/22 Losartan Potassium 1 PO DAILY 07/31/23 Nebivolol HCl 2.5 mg PO DAILY 07/31/23 Trazodone [Desyrel*] 25 PRN 07/31/23 - Past Medical/Surgical History -: Hypertension -: Diabetes mellitus type 2 -: Colonoscopy - Family History Mother -: Cancer Father -: Cancer - Social History Alcohol use: No CD- Drugs: No Caffeine use: Yes Review of Systems Gastrointestinal: Nausea, Vomiting, Abdominal Pain Physical Examination - Physical Exam General: Alert, In no apparent distress, Oriented x3 HEENT: Atraumatic, Normocephalic, PERRLA, Mucous membr. moist/pink Neck: Supple, 2+ carotid pulse no bruit, JVD not distended Respiratory: Clear to auscultation bilaterally, Normal air movement Cardiovascular: No edema, Normal pulses, Regular rate/rhythm, Normal S1 S2 Capillary refill: <2 Seconds Gastrointestinal: Normal bowel sounds, Soft and benign Musculoskeletal: No clubbing, No swelling, No contractures Integumentary: No rashes, No breakdown, No significant lesion Neurological: Normal speech, Normal strength at 5/5 x4 extr, Normal tone - Studies Laboratory Data (last 24 hrs) 07/31/23 07/31/23 05:20 05:20 WBC 15.60 H Hgb 16.1 Hct 48.4 Plt Count 249 Sodium 138 Potassium 4.5 BUN 31 H Creatinine 1.61 H Glucose 230 H Total Bilirubin 2.3 H AST 29 ALT 41 Alkaline Phosphatase 86 Lipase 36 Assessment and Plan - Plan Assessment and plan Acute enteritis Cholelithiasis Leukocytosis -Ultrasound abdomen reveals "The gallbladder demonstrates several shadowing gallstones. No pericholecystic fluid or gallbladder wall thickening. The common bile duct is normal measuring 5 mm. The liver demonstrates no findings of intrahepatic biliary dilatation. Cholelithiasis." -CT abdomen pelvis reads " stranding surrounding the small bowel which can be seen with enteritis, colonic diverticulosis, simple cyst in left kidney" -WBC 15.6, lipase 36, Tbili 2.3 -trend Total bilirubin -Gentle IV fluids -Zosyn 3 times daily -Zofran IV PRN -Clear liquid diet YASMINE -BUN creatinine 31/1.61, GFR 46 -Gentle IV fluids -Monitor in a.m. lab Diabetes mellitus -Accu-Chek with sliding scale insulin -Serum glucose 230 Hypertension -Restart home medication DVT prophylaxis SCD Full code LOS 24 hours Discharge Plan: Home Plan to discharge in: 24 Hours - Advance Directives Does patient have a Living Will: Yes Does patient have a Durable POA for Healthcare: Yes Time Spent Managing Pts Care (In Minutes): 55
[2023-07-31 12:43] VITALS: O2SAT 96
--- NOTE | 2023-07-31 15:35 | RAD REPORT ---
EXAM DESCRIPTION: CT Abdomen and Pelvis Without Intravenous Contrast CLINICAL HISTORY: The patient is 68 years old and is Male; ABD PAIN, VOMITING TECHNIQUE: Axial computed tomography images of the abdomen and pelvis without intravenous contrast. Sagittal and coronal reformatted images were created and reviewed. This CT exam was performed usi ng one or more of the following dose reduction techniques: automated exposure control, adjustment o f the mA and/or kV according to patient size, and/or use of iterative reconstruction technique. COMPARISON: No relevant prior studies available. FINDINGS: Lung bases: Unremarkable. No mass. No consolidation. ABDOMEN: Liver: Mild hepatomegaly. Diffuse hepatic steatosis. Gallbladder and bile ducts: Cholelithiasis. No ductal dilation. Pancreas: Unremarkable. No ductal dilation. Spleen: Unremarkable. No splenomegaly. Adrenals: Unremarkable. No mass. Kidneys and ureters: Simple cyst in the left kidney. No follow-up imaging is recommended. No obstructing stones. No hydronephrosis. Stomach and bowel: Stranding surrounding the small bowel which can be seen with enteritis. Colonic diverticulosis. No obstruction. PELVIS: Appendix: The appendix is normal. Bladder: Unremarkable. Reproductive: Unremarkable as visualized. ABDOMEN and PELVIS: Intraperitoneal space: Unremarkable. No free air. No significant fluid collection. Bones/joints: No acute fracture. No dislocation. Soft tissues: Unremarkable. Vasculature: Scattered atherosclerotic vascular calcifications. No abdominal aortic aneurysm. Lymph nodes: Unremarkable. No enlarged lymph nodes. IMPRESSION: 1. Stranding surrounding the small bowel which can be seen with enteritis. 2. Additional non-emergent findings as above. Electronically signed by: Segundo Fuller MD 07/31/2023 06:42 AM STAVE BLOCK SPLITTER Due to temporary technical issues with the PACS/Fluency reporting system, reports are being signed by the in house radiologists without review as a courtesy to insure prompt reporting. The interpreting radiologist is fully responsible for the content of the report.
[2023-07-31] MEDS: PIPER TAZO 3.375 GM in NA CHLORIDE 0.9% 100 ML IV SCH ×2 (15:48→22:00)
[2023-07-31 16:50] VITALS: BMI 28.7
[2023-07-31] MEDS ORDERED: LITHIUM CARBONATE ER 450 MG TAB PO SCH (21:00)
[2023-07-31] MEDS ORDERED: DOCUSATE NA/SENNA CONC 1 TAB PO PRN (23:06)
[2023-07-31] MEDS ORDERED: TRAZODONE 50 MG TABLET PO PRN (23:24)
[2023-08-01 03:48] LABS: Absolute Lymphocytes (CBC) 1.4 K/uL (0.7-4.9); Hematocrit 38.2 % (39.6-49.0); Lymphocytes % 19.8 % (15.3-44.8); MCV 84.9 fL (80-100); Platelets 193 thou/uL (152-406)
[2023-08-01 03:58] LABS: Bilirubin Total 2.6 mg/dL (0.2-1.0); Phosphorus 2.9 mg/dL (2.5-4.9); Potassium 4.3 mEq/L (3.5-5.1); Protein, Total 5.6 g/dL (6.4-8.2)
[2023-08-01] MEDS: PIPER TAZO 3.375 GM in NA CHLORIDE 0.9% 100 ML IV SCH (06:00)
[2023-08-01] MEDS: INSULIN REGULAR (HUMAN) 100 UNIT/ML SQ SCH ×2 (07:30→11:30)
[2023-08-01] MEDS ORDERED: NEBIVOLOL 2.5 MG PO SCH (09:00)
[2023-08-01] MEDS ORDERED: AMLODIPINE 10 MG TAB PO SCH (09:00)
[2023-08-01] MEDS ORDERED: NEBIVOLOL HCL 5 MG TAB PO SCH (09:00)
--- NOTE | 2023-08-01 12:48 | P.CNS ---
Date of Consult: 08/01/23 PC: This 68-year-old male presents emergency room with severe right upper quadrant abdominal pain for diagnosis and treatment. HPC: Patient been having abdominal pain off and on for the last few months. He has had colonoscopies, and is known to have gallstones. He was currently being worked up for a cardiac issues as when he presented for a colonoscopy he was found to be bradycardic. PSHx: Previous colonoscopies PMHx: Bradycardia Social Hx: Allergic to codeine Sys R: No cough, wheeze, shortness of breath. No chest pain or palpitations at the moment. No urinary complaints O/E: Awake alert vital signs are stable HEENT: Not jaundiced Chest: Chest movement equal bilaterally Abd: Soft nontender Olden: Intact Data: Has documented gallstones Impression: Chronic cholecystitis with biliary colic Plan: This patient was admitted overnight for observation and pain control. Today he is pain-free, up ambulating, no longer has abdominal pain. He is in the middle of a cardiac workup for a potential surgical intervention for his gallstones in the next few weeks. 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 He understands the risks, and is aware of this, he will have his procedures done and follow-up with me at a later date.
[2023-08-01 14:39] VITALS: BP 138/71; TEMP 97.9
--- NOTE | 2023-08-01 14:51 | P.DS ---
Admission Date: 07/31/23 Discharge Date: 08/01/23 Disposition: ROUTINE DISCHARGE Discharge Condition: FAIR Reason for Admission: Acute Enteritis Brief History of Present Illness: Diagnosis Acute enteritis Cholelithiasis Leukocytosis YASMINE Diabetes mellitus Hypertension HPI 07/31/23 Rick Giron is a 68-year-old male with a past medical history of hypertension, diabetes type 2, umbilical hernia, who presents to the ED with complaints of epigastric pain that started last night 10 PM. His last episode was in June of this year. He recalls his previous visit was in January of 2023 then coming back for an Abdominal CT in June showing Cholelithiasis without evidence of cholecystitis. Ultrasound abdomen reveals "The gallbladder demonstrates several shadowing gallstones. No pericholecystic fluid or gallbladder wall thickening. The common bile duct is normal measuring 5 mm. The liver demonstrates no findings of intrahepatic biliary dilatation. Cholelithiasis." CT abdomen pelvis reads " stranding surrounding the small bowel which can be seen with enteritis, colonic diverticulosis, simple cyst in left kidney" Initial vitals BP 166 / 77; Pulse 56; Resp 16; Pulse Ox 97% on R/A. Laboratory evaluation WBC 15.6, H&H 16/48, BUN/creatinine 31/1.61, GFR 46, potassium 4.5, serum glucose 230, lipase 36, Tbili 2.3. Of note: He was recommended to see GI at which time he made an appointment for an upper GI. While preparing for the procedure, his heart rate was too low per anesthesiology, he was then referred to cardiology. He wore a heart monitor for 1 week and will get results soon. He reports having a low heart rate is his baseline. Rick will be admitted to hospitalist service for further evaluation and treatment of acute enteritis. 08/01/23 Rick reports resolution of nausea and epigastric pain. He is ambulating independently, tolerating clear liquid diet, full liquid diet and will continue to advance at home with a bland diet. Dr. Gutierrez was consulted and recommends follow-up for gallbladder health, recommending possible surgery in the near future. Rick is hemodynamically stable and ready for discharge. General: Alert, In no apparent distress, Oriented x3 HEENT: Atraumatic, Normocephalic, PERRLA, Mucous membr. moist/pink felix: Supple, 2+ carotid pulse no bruit, JVD not distended Respiratory: Clear to auscultation bilaterally, Normal air movement Cardiovascular: No edema, Normal pulses, Regular rate/rhythm, Normal S1 S2 Capillary refill: <2 Seconds Gastrointestinal: Normal bowel sounds, Soft and benign Musculoskeletal: No clubbing, No swelling, No contractures Integumentary: No rashes, No breakdown, No significant lesion Neurological: Normal speech, Normal strength at 5/5 x4 extr, Normal tone Hospital Course: Acute enteritis Cholelithiasis Leukocytosis -Ultrasound abdomen reveals "The gallbladder demonstrates several shadowing gallstones. No pericholecystic fluid or gallbladder wall thickening. The common bile duct is normal measuring 5 mm. The liver demonstrates no findings of intrahepatic biliary dilatation. Cholelithiasis." -CT abdomen pelvis reads " stranding surrounding the small bowel which can be seen with enteritis, colonic diverticulosis, simple cyst in left kidney" -WBC 15.6, lipase 36, Tbili 2.3 -trend Total bilirubin -Gentle IV fluids -Zosyn 3 times daily-prophylactic -Zofran IV PRN -Clear liquid diet -Consult Dr. Brenda UNDERWOOD -BUN creatinine 31/1.61, GFR 46 -Gentle IV fluids -Monitor in a.m. lab Diabetes mellitus -Accu-Chek with sliding scale insulin -Serum glucose 230 Plan to monitor closely and speak to PCP concerning insulin regimen Hypertension -Restart home medication Vital Signs/Physical Exam: Temp Pulse Resp BP Pulse Ox 97.9 F 45 L 16 138/71 100 08/01/23 12:00 08/01/23 12:00 08/01/23 12:00 08/01/23 12:00 08/01/23 12:00 Laboratory Data at Discharge: WBC 7.30 thou/uL (4.3-10.9) 08/01/23 03:13 Hgb 12.8 g/dL (13.6-17.9) L D 08/01/23 03:13 Hct 38.2 % (39.6-49.0) L 08/01/23 03:13 Plt Count 193 thou/uL (152-406) 08/01/23 03:13 Sodium 141 mEq/L (136-145) 08/01/23 03:13 Potassium 4.3 mEq/L (3.5-5.1) 08/01/23 03:13 BUN 27 mg/dL (7-18) H 08/01/23 03:13 Creatinine 1.58 mg/dL (0.70-1.30) H 08/01/23 03:13 Glucose 100 mg/dL (74-106) 08/01/23 03:13 Phosphorus 2.9 mg/dL (2.5-4.9) 08/01/23 03:13 Magnesium 2.0 mg/dL (1.6-2.4) 08/01/23 03:13 Total Bilirubin 2.6 mg/dL (0.2-1.0) H 08/01/23 03:13 AST 25 U/L (15-37) 08/01/23 03:13 ALT 27 U/L (16-61) 08/01/23 03:13 Alkaline Phosphatase 60 U/L (45-117) D 08/01/23 03:13 Triglycerides 91 mg/dL (<150) 08/01/23 03:13 Cholesterol 125 mg/dL (<200) 08/01/23 03:13 HDL Cholesterol 37 mg/dL (40-60) L 08/01/23 03:13 Cholesterol/HDL Ratio 3.38 08/01/23 03:13 Lipase 36 U/L (13-75) 07/31/23 05:20 Home Medications: Dapagliflozin Propanediol [Farxiga] 5 mg PO DAILY 06/04/22 [place] Carbonate [[place] Carbonate ER] 450 mg PO DAILY 06/04/22 Amlodipine [Norvasc*] 10 mg PO DAILY #30 tab 06/05/22 Losartan Potassium 1 PO DAILY 07/31/23 Nebivolol HCl 2.5 mg PO DAILY 07/31/23 Trazodone [Desyrel*] 25 PRN 07/31/23 Ciprofloxacin HCl [Cipro] 500 mg PO BID #10 tab 08/01/23 metroNIDAZOLE [Metronidazole] 500 mg PO TID #15 tab 08/01/23 New Medications: Ciprofloxacin HCl [Cipro] 500 mg PO BID #10 tab metroNIDAZOLE [Metronidazole] 500 mg PO TID #15 tab Physician Discharge Instructions: 1. Please call and schedule a follow-up appointment with your PCP in 3-5 days - Please follow-up with your PCP for medication refills/adjustments 2. Please call and schedule a follow-up appointment with gastrointestinal, and cardiology in 1 to 2 weeks 3. Follow-up with Dr. Gutierrez for additional gallbladder monitoring 4. Continue diabetic and low-fat diet 5. Return to the ED if symptoms worsen 6. No new medications this admission 7. Happy anniversary tomorrow! Diet: ADA Activity: Ad ruslan Followup: Ben Gutierrez MD [ACTIVE - CAN ADMIT] - 1-2 Weeks (Call for appointment.) Harjinder Mendoza MD [Primary Care Provider] - 2-3 Days (Call for appointment.)
== END 2023-08-01 15:00 | disposition home or self-care (01) ==
LOC: ER 04:55 → ERHOLD 07:51 → 2ND 09:31
PROVIDERS: ADMIT Internal Medicine; ATTEND Internal Medicine
DX: K52.9 Noninfective gastroenteritis and colitis, unspecified (principal); K81.1 Chronic cholecystitis; D72.829 Elevated white blood cell count, unspecified; N17.9 Acute kidney failure, unspecified; I10 Essential (primary) hypertension; E11.9 Type 2 diabetes mellitus without complications; K42.9 Umbilical hernia without obstruction or gangrene; K80.20 Calculus of gallbladder without cholecystitis without obstruction; Z88.5 Allergy status to narcotic agent
CPT/HCPCS: 96365; 96361; 85025 ×2; 81001; 36415; 83735; 84100; 80061; 82947 ×4; 84484 ×3; 83690; 80053 ×2; 74176; 76705; 96375; 99284; J2543 ×3; J2405; J7030 ×2; 93005; G0378

== ENCOUNTER 2023-10-05 04:26 | Inpatient (IN) | payer OTHER ==
--- OUTSIDE RECORDS SUMMARY | 2023-10-05 04:29 | XMS REPORT | Clinical Summary ---
Author Name Unknown Organization [facility] Address [address] [place] [address] Care Team Providers Care Line Service Person Name Role Phone Ancelmo Bolaños MD Primary Care Provider [phone] Harjinder Mendoza MD Unavailable [phone] Ancelmo Rutherford MD Unavailable [phone] Allergies Active Allergy Reactions Criticality Noted Date Comments Ambien Larry 06/01/2020 Sonya Dalal,Other (See Comments) 04/25/2019 Zolpidem 04/25/2019 Other reaction(s): Unknown Reaction Medications Medication Sig Dispensed Refills Start Date End Date Status DATA ENTRY Thyroid 30 mg tab tablet Take 1 [...] had 3 Col onoscopys. Last one this [id number]. Polyp of colon 2009 I have had 3 Col onoscopys. Last one this [id number]. Gallstone 2009 With each ultras ound I have the gallstone has shrunk. Bipolar disorder 1989 I take Pajaro once a day. 450mg Family History Medical [...] Comments COVID-19 Vaccination (#1) 1955 Care Teams Line Service Person Relationship Specialty Start Date End Date Ancelmo Bolaños MD [address] [place] [address] PCP - General Surgical Oncology 05/17/20 Harjinder Mendoza MD [address] [place] [address] [id number] PCP - External Primary Care Provider Family Practice 05/17/20 Ancelmo Rutherford MD [address] [place] [id number] PCP - External Follow Up A Internal Medicine 05/17/20
[2023-10-05] MEDS ORDERED: NA CHLORIDE 0.9% 1,000 ML ONE (04:57)
[2023-10-05] MEDS ORDERED: ONDANSETRON 4 MG/2 ML VIAL ONE (04:57)
[2023-10-05] MEDS ORDERED: HYDROMORPHONE HCL 1 MG/ML INJ ONE (05:12)
[2023-10-05 05:13] LABS: Absolute Basophils 0.1 K/uL (0-0.5); Basophils % 0.5 % (0-1.3); Eosinophils % 0.2 % (0-4.4); Hematocrit 47.5 % (39.6-49.0); Hemoglobin 15.9 g/dL (13.6-17.9); Lymphocytes % 6.4 % (15.3-44.8); MCV 85.7 fL (80-100); MPV 9.1 fL (7.6-11.3); Platelets 268 thou/uL (152-406); RBC Red Blood Cell Count 5.55 M/uL (4.33-5.43)
[2023-10-05 05:30] LABS: Albumin 4.4 g/dL (3.4-5.0); Albumin/Globulin Ratio 1.3 (1.1-1.8); Anion Gap 11.4 mEq/L (5.0-15.0); Bilirubin Total 2.1 mg/dL (0.2-1.0); Globulin 3.3 g/dL (2.3-3.5); Potassium 4.4 mEq/L (3.5-5.1); Protein, Total 7.7 g/dL (6.4-8.2)
[2023-10-05 05:33] LABS: Renal Epithelial <5 /HPF (None Seen); Specific Gravity 1.022 (1.005-1.030); Urine Bacteria None Seen /HPF (<20); Urine Bilirubin NEGATIVE (Negative); Urine Blood Negative (Negative); Urine Clarity Clear (Clear); Urine Color Light-Yellow (Yellow); Urine Glucose NEGATIVE (Negative); Urine Mucus Slight /HPF (None Seen); Urine Protein 1+ (Negative); Urine RBC <5 /HPF (None Seen); Urine Urobilinogen Normal (Normal); Urine pH 5.5 (5.0-7.0)
[2023-10-05 05:39] LABS: Band Neutrophils 4 % (0-1); Blood Morphology Comment NOT SEEN (NOT SEEN); Eosinophils 1 % (0-3); Platelet Estimate ADEQ
--- NOTE | 2023-10-05 07:02 | ER ---
Nurse's Notes [facility] Name: Rick Giron Age: 68 yrs Sex: Male : 1955 Arrival Date: 10/05/2023 Time: 04:26 Bed 13 Private MD: Diagnosis: Partial small bowel obstruction, enteritis Presentation: 10/04 04:33 Chief complaint: Patient states: '' i have lower abdominal pain and with nausea and as9 vomiting that started \\T\\ 2200H last night" abdominal pain score is 10/10 for pain scale. 04:33 Coronavirus screen: Vaccine status: Patient reports receiving the 2nd dose of the covid as9 vaccine. Ebola Screen: No symptoms or risks identified at this time. Initial Sepsis Screen: Does the patient meet any 2 criteria? No. Patient's initial sepsis screen is negative. Does the patient have a suspected source of infection? No. Patient's initial sepsis screen is negative. Risk Assessment: Do you want to hurt yourself or someone else? Patient reports no desire to harm self or others. Onset of symptoms was October 04, 2023 at 22:00. 04:33 Method Of Arrival: Ambulatory as9 04:33 Acuity: CAL 3 as9 Triage Assessment: 04:54 General: Appears in no apparent distress. Behavior is calm, cooperative, appropriate as9 for age. Pain: Complains of pain in left lower abdomen Pain currently is 10 out of 10 on a pain scale. EENT: No signs and/or symptoms were reported regarding the EENT system. Neuro: Level of Consciousness is awake, alert, obeys commands, Oriented to person, place, time, situation, Appropriate for age. Cardiovascular: Capillary refill < 3 seconds Patient's skin is warm and dry. Respiratory: Airway is patent Respiratory effort is even, unlabored, Respiratory pattern is regular, symmetrical. GI: Reports lower abdominal pain, nausea, vomiting. 04:56 : No signs and/or symptoms were reported regarding the genitourinary system. Derm: as9 Skin is pink, warm \\T\\ dry. Musculoskeletal: Circulation, motion, and sensation intact. Range of motion: intact in all extremities. Historical: - Allergies: 04:43 ambien; pf1 04:43 Codeine; pf1 - Home Meds: 05:29 lithium carbonate 450 mg Oral TbER 1 tab daily [Active]; nebivolol 2.5 mg oral tablet pf1 .5 tab daily [Active]; losartan 100 mg oral tablet 1 tab daily [Active]; repaglinide 0.5 mg oral tablet 1 tabs PRN with large meals [Active]; trazodone 50 mg Oral tablet .5 tabs every day at bedtime [Active]; rosuvastatin 10 mg oral tablet 1 tab daily [Active]; - PMHx: 04:43 DM type 2; HTN; Umbilical hernia; Diverticulitis; pf1 05:29 Bipolar disorder; Heart murmur; pf1 - PSHx: 04:43 None; pf1 - Immunization history:: Client reports receiving the 2nd dose of the Covid vaccine, Pneumococcal vaccine is not up to date, Flu vaccine is not up to date. - Social history:: Smoking status: Patient denies any tobacco usage or history of. Patient/guardian denies using alcohol, street drugs. Screenin:43 [facility] ED Fall Risk Assessment (Adult) History of falling in the last 3 months, pf1 including since admission No falls in past 3 months (0 pts) Confusion or Disorientation No (0 pts) Intoxicated or Sedated No (0 pts) Impaired Gait No (0 pts) Mobility Assist Device Used No (0 pt) Altered Elimination No (0 pt) Score/Fall Risk Level 0 - 2 = Low Risk Oriented to surroundings, Maintained a safe environment, Educated pt \\T\\ family on fall prevention, incl call for assistance when getting out of bed, Assessed \\T\\ reinforced patient's understanding of fall precautions, Provided non-skid footwear, Hourly rounding (assess needs \\T\\ fall precautionary measures) done, Used ambulatory aids as needed (educated on \\T\\ assisted with), Used gait belt as appropriate. Abuse screen: Denies threats or abuse. Nutritional screening: No deficits noted. Tuberculosis screening: No symptoms or risk factors identified. Assessment: 04:57 Reassessment: see triage assessment notes. as9 05:27 Reassessment: Patient appears in no apparent distress at this time. Patient and/or pf1 family updated on plan of care and expected duration. Pain level reassessed. Patient is alert, oriented x 3, equal unlabored respirations, skin warm/dry/pink. 06:30 Reassessment: Patient appears in no apparent distress at this time. Patient and/or pf1 family updated on plan of care and expected duration. Pain level reassessed. Patient is alert, oriented x 3, equal unlabored respirations, skin warm/dry/pink. Patient states feeling better. Patient states symptoms have improved. 09:00 GI: Abdomen is non-distended. bp Vital Signs: 04:33 BP 180 / 92; Pulse 61; Resp 20; Temp 98.2; Pulse Ox 95% ; Weight 90.72 kg; Height 5 ft. as9 10 in. ; 05:15 BP 130 / 68; Pulse 57; Resp 16; Pulse Ox 95% on R/A; pf1 06:30 BP 132 / 69; Pulse 56; Resp 16; Pulse Ox 95% on R/A; pf1 04:33 Body Mass Index 28.70 (90.72 kg, 177.8 cm) as9 ED Course: 04:30 Patient arrived in ED. gm2 04:34 Beatriz Pineda MD is Attending Physician. sp3 04:43 No provider procedures requiring assistance completed. Inserted saline lock: 22 gauge pf1 in right antecubital area, using aseptic technique. Blood collected. 04:54 Triage completed. as9 04:56 Arm band placed on right wrist. as9 04:56 Patient has correct armband on for positive identification. Placed in gown. Bed in low as9 position. Call light in reach. Side rails up X 1. 05:05 CBC with Diff Sent. pf1 05:05 CMP Sent. pf1 05:05 Lipase Sent. pf1 05:05 Urinalysis w/ reflexes Sent. pf1 05:52 CT Abd/Pelvis - IV Contrast Only In Process Unspecified. EDMS 07:01 Alonzo Bourne MD is Hospitalizing Provider. sp3 07:13 Quinten Lin, VI is Primary Nurse. bp 09:14 Patient admitted, IV remains in place. bp 09:14 Provided Education on: N/A. bp Administered Medications: 05:00 Drug: NS 0.9% IV 1000 ml IV at 1 bolus Per protocol; 1000 mL bolus Route: IV; Rate: 1 pf1 bolus; Site: right antecubital; 05:25 Follow up: Response: No adverse reaction pf1 09:18 Follow up: IV Status: Completed infusion; IV Intake: 1000ml bp 05:00 Drug: Ondansetron IVP 4 mg IVP once; over 2 minutes Route: IVP; Site: right antecubital;pf1 05:25 Follow up: Response: No adverse reaction pf1 05:15 Drug: HYDROmorphone IVP 1 mg IVP once Route: IVP; Site: right antecubital; pf1 06:00 Follow up: Response: No adverse reaction; Marked relief of symptoms; Pain is decreased; pf1 RASS: Alert and Calm (0) 07:15 Drug: Piperacillin-Tazobactam IVPB 3.375 grams IVPB once over 60 mins; (mix in NS 100 pf1 mL) Route: IVPB; Infused Over: 60 mins; Site: right antecubital; 09:17 Follow up: IV Status: Completed infusion; IV Intake: 100ml bp Medication: 04:57 VIS not applicable for this client. as9 Intake: 09:17 IV: 100ml; Total: 100ml. bp 09:18 IV: 1000ml; Total: 1100ml. bp Outcome: 07:01 Decision to Hospitalize by Provider. sp3 09:14 Condition: stable bp 09:14 Instructed on the need for admit, 09:17 Admitted to Med/surg accompanied by tech, via wheelchair, room 419, Report called to bp LUU RN 09:34 Patient left the ED. bp Signatures: Dispatcher [employer] EDMS Quinten Lin RN RN Beatriz Cheek MD MD sp3 Emiliana Melgar RN RN pf1 Nancy Peraza 2 Florentino Ordaz RN RN as9 Corrections: (The following items were deleted from the chart) 05:33 05:29 Home Meds: HTN MEDICATION; pf1 pf1
--- NOTE | 2023-10-05 07:02 | EDPHYS ---
Physician Documentation [facility] Name: Rick Giron Age: 68 yrs Sex: Male : 1955 Arrival Date: 10/05/2023 Time: 04:26 Bed 13 Private MD: ED Physician Beatriz Pineda HPI: 10/04 04:56 This 68 yrs old Male presents to ER via Ambulatory with complaints of Nausea/Vomiting, sp3 Abdominal Pain. 04:56 68-year-old male with history of diabetes, hypertension, umbilical hernia, multiple sp3 episodes of prior diverticulitis now presents with recurrent left lower quadrant abdominal pain the patient states is a "flareup of his diverticulitis". Patient denies any other symptoms including fever, diarrhea, vomiting, upper abdominal pain, chest pain, shortness of breath, syncope, near syncope, travel history, known sick contacts, or any other signs or symptoms on ROS at this time.. Historical: - Allergies: 04:43 ambien; pf1 04:43 Codeine; pf1 - Home Meds: 05:29 lithium carbonate 450 mg Oral TbER 1 tab daily [Active]; nebivolol 2.5 mg oral tablet pf1 .5 tab daily [Active]; losartan 100 mg oral tablet 1 tab daily [Active]; repaglinide 0.5 mg oral tablet 1 tabs PRN with large meals [Active]; trazodone 50 mg Oral tablet .5 tabs every day at bedtime [Active]; rosuvastatin 10 mg oral tablet 1 tab daily [Active]; - PMHx: 04:43 DM type 2; HTN; Umbilical hernia; Diverticulitis; pf1 05:29 Bipolar disorder; Heart murmur; pf1 - PSHx: 04:43 None; pf1 - Immunization history:: Client reports receiving the 2nd dose of the Covid vaccine, Pneumococcal vaccine is not up to date, Flu vaccine is not up to date. - Social history:: Smoking status: Patient denies any tobacco usage or history of. Patient/guardian denies using alcohol, street drugs. ROS: 04:58 Constitutional: Negative for fever, chills, and weight loss, Eyes: Negative for injury, sp3 pain, redness, and discharge, Neck: Negative for injury, pain, and swelling, Cardiovascular: Negative for chest pain, palpitations, and edema, Respiratory: Negative for shortness of breath, cough, wheezing, and pleuritic chest pain, Back: Negative for injury and pain, MS/Extremity: Negative for injury and deformity, Skin: Negative for injury, rash, and discoloration, Neuro: Negative for headache, weakness, numbness, tingling, and seizure, Psych: Negative for depression, anxiety, suicide ideation, homicidal ideation, and hallucinations, Allergy/Immunology: Negative for hives, rash, and allergies, Endocrine: Negative for neck swelling, polydipsia, polyuria, polyphagia, and marked weight changes, Hematologic/Lymphatic: Negative for swollen nodes, abnormal bleeding, and unusual bruising, 04:58 All other systems are negative, Exam: 04:58 Constitutional: This is a well developed, well nourished patient who is awake, alert, sp3 and in no acute distress. Head/Face: Normocephalic, atraumatic. Eyes: Pupils equal round and reactive to light, extra-ocular motions intact. Lids and lashes normal. Conjunctiva and sclera are non-icteric and not injected. Cornea within normal limits. Periorbital areas with no swelling, redness, or edema. ENT: Nares patent. No nasal discharge, no septal abnormalities noted. External auditory canals are clear. Oropharynx with no redness, swelling, or masses, exudates, or evidence of obstruction, uvula midline. Mucous membranes moist. Neck: Trachea midline, no thyromegaly or masses palpated, and no cervical lymphadenopathy. Supple, full range of motion without nuchal rigidity, or vertebral point tenderness. No Meningismus. Chest/axilla: Normal chest wall appearance and motion. Nontender with no deformity. No lesions are appreciated. Cardiovascular: Regular rate and rhythm with a normal S1 and S2. No gallops, murmurs, or rubs. Normal PMI, no JVD. No pulse deficits. Respiratory: Lungs have equal breath sounds bilaterally, clear to auscultation and percussion. No rales, rhonchi or wheezes noted. No increased work of breathing, no retractions or nasal flaring. Back: No spinal tenderness. No costovertebral tenderness. Full range of motion. Skin: Warm, dry with normal turgor. Normal color with no rashes, no lesions, and no evidence of cellulitis. MS/ Extremity: Pulses equal, no cyanosis. Neurovascular intact. Full, normal range of motion. Neuro: Awake and alert, GCS 15, oriented to person, place, time, and situation. Cranial nerves II-XII grossly intact. Motor strength 5/5 in all extremities. Sensory grossly intact. Cerebellar exam normal. Normal gait. Psych: Awake, alert, with orientation to person, place and time. Behavior, mood, and affect are within normal limits. 04:58 Abdomen/GI: Left lower quadrant abdominal pain without peritoneal signs, rebound or guarding., Vital Signs: 04:33 BP 180 / 92; Pulse 61; Resp 20; Temp 98.2; Pulse Ox 95% ; Weight 90.72 kg; Height 5 ft. as9 10 in. ; 05:15 BP 130 / 68; Pulse 57; Resp 16; Pulse Ox 95% on R/A; pf1 06:30 BP 132 / 69; Pulse 56; Resp 16; Pulse Ox 95% on R/A; pf1 04:33 Body Mass Index 28.70 (90.72 kg, 177.8 cm) as9 MDM: 04:34 Patient medically screened. sp3 05:00 Data reviewed: vital signs, nurses notes, old medical records, lab test result(s), sp3 radiologic studies. ED course: 68-year-old male with left lower quadrant abdominal pain. Differential diagnosis includes diverticulitis, other nonspecific colitis, UTI/pyelospectrum, kidney stone, musculoskeletal pain, among others. I am not highly suspicious for acute coronary syndrome, aortic pathology, sepsis, shock or any other critical process. Workup will include laboratory values, normal saline, Dilaudid and Zofran IV for pain control, and CT scan of the abdomen pelvis with contrast. Disposition pending workup and patient course.. 07:01 ED course: Discussed with Dr. Hylton and hospitalist team. Patient will be admitted sp3 at this time with Zosyn IV started.. 10/04 04:48 Order name: CBC with Diff; Complete Time: 06:14 sp3 10/04 04:48 Order name: CMP; Complete Time: 06:14 sp3 10/04 04:48 Order name: Lipase; Complete Time: 06:14 sp3 10/04 04:48 Order name: Urinalysis w/ reflexes; Complete Time: 06:14 sp3 10/04 05:18 Order name: Manual Differential; Complete Time: 06:14 EDMS 10/04 04:48 Order name: CT Abd/Pelvis - IV Contrast Only sp3 10/04 04:48 Order name: IV Saline Lock; Complete Time: 05:05 sp3 10/04 04:48 Order name: Labs collected and sent; Complete Time: 05:05 sp3 Administered Medications: 05:00 Drug: NS 0.9% IV 1000 ml IV at 1 bolus Per protocol; 1000 mL bolus Route: IV; Rate: 1 pf1 bolus; Site: right antecubital; 05:25 Follow up: Response: No adverse reaction pf1 09:18 Follow up: IV Status: Completed infusion; IV Intake: 1000ml bp 05:00 Drug: Ondansetron IVP 4 mg IVP once; over 2 minutes Route: IVP; Site: right antecubital;pf1 05:25 Follow up: Response: No adverse reaction pf1 05:15 Drug: HYDROmorphone IVP 1 mg IVP once Route: IVP; Site: right antecubital; pf1 06:00 Follow up: Response: No adverse reaction; Marked relief of symptoms; Pain is decreased; pf1 RASS: Alert and Calm (0) 07:15 Drug: Piperacillin-Tazobactam IVPB 3.375 grams IVPB once over 60 mins; (mix in NS 100 pf1 mL) Route: IVPB; Infused Over: 60 mins; Site: right antecubital; 09:17 Follow up: IV Status: Completed infusion; IV Intake: 100ml bp Disposition Summary: 10/05/23 07:01 Hospitalization Ordered Notes: Hospitalization Status: Inpatient Admission sp3 Provider: Alonzo Bourne sp3 Location: Telemetry/[facility] (Inpatient) sp3 Condition: Stable sp3 Problem: an acute exacerbation sp3 Symptoms: have worsened sp3 Bed/Room Type: Standard sp3 Room Assignment: 419(10/05/23 08:41) ja1 Diagnosis - Partial small bowel obstruction, enteritis sp3 Discharge Instructions: - Discharge Summary Sheet pf1 Forms: - Medication Reconciliation Form sp3 - Leadership Thank You Letter sp3 - SBAR form pf1 Signatures: Dispatcher [employer] EDDomingo Hawley RN RN ja1 Beatriz Pineda MD MD sp3 Emiliana Melgar RN RN pf1 Florentino Ordaz RN RN as9 Quinten Lin RN bp Corrections: (The following items were deleted from the chart) 05:33 05:29 Home Meds: HTN MEDICATION; pf1 pf1 08:41 07:01 sp3 ja1
[2023-10-05] MEDS ORDERED: NA CHLORIDE 0.9% 100 ML ONE (07:09)
[2023-10-05] MEDS ORDERED: PIPERACIL/TAZO 3.375 GM VIAL IV ONE (07:09)
[2023-10-05] MEDS ORDERED: MORPHINE 2 MG/ML SYR IV PRN (09:56)
[2023-10-05] MEDS: INSULIN REGULAR (HUMAN) 100 UNIT/ML SQ SCH (09:56)
[2023-10-05] MEDS ORDERED: ONDANSETRON 4 MG/2 ML VIAL IV PRN (09:56)
--- NOTE | 2023-10-05 10:24 | P.HP ---
Certification for Inpatient Patient admitted to: Inpatient With expected LOS: >2 Midnights Patient will require the following post-hospital care: None Practitioner: I am a practitioner with admitting privileges, knowledge of patient current condition, hospital course, and medical plan of care. Services: Services provided to patient in accordance with Admission requirements found in Title 42 Section 412.3 of the Code of Federal Regulations Patient History Date of Service: 10/05/23 Reason for admission: Small bowel obstruction History of Present Illness: 68-year-old male with history of diabetes most type IIdiet controlled, hypertension, bipolar disorder presents emergency department chief complaint of abdominal pain, vomiting. He reports his pain began last night around 2200 started with left lower quadrant abdominal pain and progressed to vomiting with 2 episodes throughout the evening. He was evaluated in the emergency department and his labs were significant for leukocytosis white blood cell 15.5 hemoglobin 15.9 hematocrit 47.5 creatinine 1.56 GFR 48 glucose 204 T. bili 2.1 UA not concerning for urinary tract infection CT abdomen pelvis with IV contrast showed suspected partial small bowel obstruction. General surgery was consulted, patient will be admitted for further evaluation and management of small bowel obstruction. Allergies codeine Allergy (Severe, Verified 06/04/22 14:03) Itching/Hives/Rash zolpidem [From Ambien] Allergy (Severe, Verified 06/04/22 14:03) Shortness of breath Home Medications: Dapagliflozin Propanediol [Farxiga] 5 mg PO DAILY 06/04/22 [place] Carbonate [[place] Carbonate ER] 450 mg PO DAILY 06/04/22 Amlodipine [Norvasc*] 10 mg PO DAILY #30 tab 06/05/22 Losartan Potassium 1 PO DAILY 07/31/23 Nebivolol HCl 2.5 mg PO DAILY 07/31/23 Trazodone [Desyrel*] 25 PRN 07/31/23 Ciprofloxacin HCl [Cipro] 500 mg PO BID #10 tab 08/01/23 metroNIDAZOLE [Metronidazole] 500 mg PO TID #15 tab 08/01/23 - Past Medical/Surgical History -: Hypertension -: Diabetes mellitus type 2 -: BPD -: Colonoscopy Psychosocial/ Personal History: Lives at home with his - Family History Mother -: Cancer Father -: Cancer - Social History Smoking Status: Never smoker Alcohol use: No CD- Drugs: No Caffeine use: Yes Place of Residence: Home Review of Systems 10-point ROS is otherwise unremarkable Gastrointestinal: Nausea, Abdominal Pain Physical Examination - Vital Signs Temperature: 98.2 F Blood Pressure: 132/69 Pulse: 56 Respirations: 16 - Physical Exam General: Alert, In no apparent distress, Oriented x3 HEENT: Atraumatic, PERRLA, Mucous membr. moist/pink Neck: Supple, 2+ carotid pulse no bruit, No LAD Respiratory: Clear to auscultation bilaterally, Normal air movement Cardiovascular: Regular rate/rhythm, Normal S1 S2 Gastrointestinal: Normal bowel sounds, Tenderness (Mild left lower quadrant, suprapubic tenderness) Musculoskeletal: No tenderness Integumentary: No rashes Neurological: Normal gait, Normal speech, Normal strength at 5/5 x4 extr, Normal tone, Normal affect Lymphatics: No axilla or inguinal lymphadenopathy - Studies Laboratory Data (last 24 hrs) 10/05/23 10/05/23 04:50 04:50 WBC 15.50 H Hgb 15.9 Hct 47.5 Plt Count 268 Sodium 140 Potassium 4.4 BUN 27 H Creatinine 1.56 H Glucose 204 H Total Bilirubin 2.1 H AST 23 ALT 39 Alkaline Phosphatase 100 Lipase 36 Assessment and Plan - Plan Assessment: Small bowel obstruction Diabetes mellitus type [id number]-[id number]-[id number] with hyperglycemia Hypertension Bipolar disorder Plan: Small bowel obstruction N.p.o., IVF, empiric antibiotics General surgery consult Seems to be improving-still having abdominal pain but no nausea or vomiting Consider NGT if there is worsening nausea, vomiting or abdominal distention Encouraged ambulation As needed pain medications and antiemetics Diabetes mellitus type [id number]-[id number] with hyperglycemia Reports he is diet controlled at home Glucose 200 on admission Will obtain A1c Every 6 hours Accu-Chek, sliding scale insulin Hypertension Continue home medication once tolerating oral Bipolar disorder Takes lithium at home, will check lithium level, restart when appropriate DVT PPX: Lovenox Code status: Full Discharge Plan: Home Plan to discharge in: 48 Hours - Advance Directives Does patient have a Living Will: Yes Does patient have a Durable POA for Healthcare: Yes - Code Status/Comfort Care Code Status Assessed: Yes (Full code) Critical Care: No Time Spent Managing Pts Care (In Minutes): 70
[2023-10-05] MEDS: NA CHLORIDE 0.9% 1,000 ML IV SCH (10:34)
[2023-10-05] MEDS: ENOXAPARIN 40 MG/0.4 ML SQ SCH (10:36)
--- NOTE | 2023-10-05 10:37 | RAD REPORT ---
EXAM DESCRIPTION: CT ABDOMEN AND PELVIS WITH CONTRAST CLINICAL HISTORY: ABD PAIN COMPARISON: 07/31/2023 TECHNIQUE: CT of the abdomen and pelvis performed following IV administration of iodinated contras t. This exam was performed according to our departmental dose-optimization program, which includes au tomated exposure control, adjustment of the mA and/or kV according to patient size and/or use of iter ative reconstruction technique. FINDINGS: Lung Bases: Multiple dependent atelectasis. Bones: Mild multilevel endplate spondylosis and facet arthropathy. Abdomen: Liver: The liver has normal size and density. No intrahepatic biliary dilatation. Gallbladder: Cholelithiasis. Spleen, Pancreas, and Adrenal Glands: The spleen, pancreas, and adrenal glands are unremarkable. Kidneys: No hydronephrosis or obstructing calculus. Bilateral renal cysts. No follow-up imaging f or the structures. Vasculature: Aortoiliac atherosclerosis. IVC is unremarkable. The portal vein is patent. The proxim al visceral and renal arteries are patent. Stomach: Small hiatal hernia. Other: No free intraperitoneal air. Small amount of free fluid. Pelvis: Bladder: Mild wall thickening of the urinary bladder. Bowel: Dilated loops of proximal small bowel. Fecal stasis of the distally dilated loops of bowel. Mild wall thickening and adjacent inflammatory change in the region of transition. No well defined tr ansition point. Scattered diverticula of the colon. The transverse, descending, and sigmoid colon are not well distended. Appendix: Normal appendix. Pelvis: Enlarged prostate. IMPRESSION: 1. Findings compatible with likely partial small bowel obstruction with transition to decompressed loops of bowel in the right lower abdomen. Wall thickening with adjacent inflammatory ch araceli in the region of transition in the right lower abdomen may represent nonspecific enteritis. 2. Wall thickening and adjacent inflammatory change of the urinary bladder. This could be seen with cystitis or chronic bladder outlet obstruction. 3. Enlarged prostate. 4. Cholelithiasis. 5. Diverticulosis without evidence of acute diverticulitis. Electronically signed by: Wyatt Nagy DO 10/05/2023 06:20 AM SAND WHEELER M Due to temporary technical issues with the PACS/Fluency reporting system, reports are being signed by the in house radiologists without review as a courtesy to insure prompt reporting. The interpreting radiologist is fully responsible for the content of the report.
[2023-10-05 11:12] VITALS: BMI 28.7
[2023-10-05] MEDS: PIPER TAZO 3.375 GM in NA CHLORIDE 0.9% 100 ML IV SCH (16:01)
[2023-10-05] MEDS: D10W 125 ML IV PRN (16:41)
--- NOTE | 2023-10-05 18:48 | CON ---
Date of Consultation: 10/05/2023 Reason For Service: Small bowel obstruction. History Of Present Illness: This is the case of a -bxch-dnl patient, last night he was vom iting, cramping, and nauseous to the point he comes to the ER with pain. Today, he feels better, but last night he says he was cramping a lot. Interesting is that he had this done more than once in last few months, but unknown etiology. He recently had a colonoscopy with Dr. Reis showing some polyps, but no at least that he recall evidence of any inflammatory bowel disease or Crohn's disease or ulcerative colitis. He has no previous surgeries before. He has history of gallstones, but he salazar s not taken care of that yet since it has not given him any major trouble. He knows about umbilical hernia, although right now is not incarcerated. He stated that sometimes act up, but he does not bel ieve it is the cause of the bowel obstruction at this time since he was not tender there and the neelam ia was pushed back. He denies any dysuria, hematuria, hematochezia, melena. He denies any recent tr [place]ing [place] of the country. He denies any family member sick at home. He does not recall eating any thing out of the usual. Allergies: CODEINE AND AMBIEN. Medications: Include Vistaril, Cipro, Flagyl, Norvasc, and losartan. Medical Problems: Include diabetes, hypertension, bipolar disorder, and colonoscopy. Family History: Include mother with cancer. Father with cancer. He does not know which kind of it is. Social History: He does not smoke. He does not drink alcohol. Review of Systems: Last night he has nausea, vomiting, abdominal pain. Today, the pain is almost gone and there is no m ore nausea or vomiting. He is passing flatus. Physical Examination: Vital Signs: Reviewed. Afebrile. General: Patient is awake, alert. No distress. Oriented x3. HEENT: Pupils are equal and reactive. Anicteric. Neck: Supple. Chest: Clear. Heart: S1, S2. Abdomen: Soft and depressible. No guarding or rebound. No peritoneal signs. The patient has an um bilical hernia, not incarcerated. No tenderness in that region. Extremities: Good capillary refill. Rectal: Deferred. Laboratory Data: Blood work shows WBC count of 15.5 with hemoglobin of 15.9 and platelets of 268. P otassium is 4.4, creatinine is 1.56, all this from 4 o'clock in the morning today. CAT scan of abdom en and pelvis interpreted by radiologist as findings compatible with likely partial small bowel obstr uction with transition point in the right lower quadrant wall thickening with adjacent inflammatory c hanges in the region of transition in the right lower abdomen, may represent nonspecific enteritis, w all thickening and adjacent inflammatory changes of the urinary bladder. A large prostate, cholelith iasis, and diverticular disease with no evidence of diverticulitis. Assessment: This is a -[id number]-uoo patient with what looked like a small bowel obstruction. Apparently, nausea, vomiting went away, no more cramps. He has had recent colonoscopy. He has no hi story of inflammatory bowel disease or Crohn's disease or family history of that. I am seeing by the inflammation of the right side and also the bowel obstruction near that area at least transition poi nt. We looked at the area of the appendix, but as per radiologist, an appendix looks normal. Once a gain, no masses seen or free air. Plan: If he feels better at this moment, we can order the small-bowel series and if by a small-bowel series is negative, then we will proceed to outpatient workup. That may include going back to the astroenterologist to see if there is any room for any capsule endoscopy to trying to the investigate more those areas in the small bowel. There is always the chance for diagnostic laparoscopy or laparo maurizio. Obviously, he wants to avoid those. We discussed with him that he may have some transitional bowel obstruction from the hernia, but at least at this moment it does not seem to be the cause of it . I am not sure about last night when he was having the cramp, so it is always good to have that her fabienne repair as soon as possible. We will follow the patient with you. There is no peritonitis at thi s moment and no plans for surgery today. BABATUNDE/CARLOS Voice ID: [id number] Report ID: [id number]
[2023-10-05 21:24] VITALS: O2SAT 98
[2023-10-05] MEDS ORDERED: TRAZODONE 50 MG TABLET PO PRN (21:44)
[2023-10-06 06:13] LABS: Absolute Eosinophils 0.2 K/uL (0-0.5); Absolute Lymphocytes (CBC) 1.4 K/uL (0.7-4.9); Basophils % 0.8 % (0-1.3); Eosinophils % 2.6 % (0-4.4); Lymphocytes % 21.2 % (15.3-44.8); Platelets 200 thou/uL (152-406); RBC Red Blood Cell Count 4.88 M/uL (4.33-5.43)
[2023-10-06 06:33] LABS: Anion Gap 8.4 mEq/L (5.0-15.0); Potassium 4.4 mEq/L (3.5-5.1)
--- NOTE | 2023-10-06 10:17 | RAD REPORT ---
EXAM DESCRIPTION: RAD - Small Bowel Series - 10/06/2023 9:28 am CLINICAL HISTORY: SBO Abdominal pain COMPARISON: Abdomen Pelvis W Contrast dated 10/05/2023 FINDINGS: Bait Tier film shows a nonspecific bowel gas pattern. No obstruction or free air. No suspiciou s calcifications. Gastric size and mucosal fold pattern are normal. No delay in transit of contrast into the small dank l. Small bowel is normal in diameter with no mucosal fold thickening. No intrinsic or extrinsic mass identifiable. Terminal ileum has normal appearance. Transit time to the colon is normal. No fluoroscopy was performed. Total images acquired: 11 IMPRESSION: Normal small bowel series. Dilated small bowel identified on the CT from 10/05/2023 is resolved. Enteric contrast visualized at the colon.
[2023-10-06 16:40] VITALS: BP 173/82; TEMP 98
--- NOTE | 2023-10-06 18:11 | P.DS ---
Admission Date: 10/05/23 Discharge Date: 10/11/23 Disposition: ROUTINE DISCHARGE Discharge Condition: GOOD Reason for Admission: Small bowel obstruction Brief History of Present Illness: Diagnosis: Small bowel obstruction Diabetes mellitus type [id number]-[id number] with hyperglycemia Hypertension Bipolar disorder HPI 10/05/23 Rick Giron is a 68-year-old male with history of diabetes most type IIdiet controlled, hypertension, bipolar disorder presents emergency department chief complaint of abdominal pain, vomiting. He reports his pain began last night around 2200 started with left lower quadrant abdominal pain and progressed to vomiting with 2 episodes throughout the evening. He was evaluated in the emergency department and his labs were significant for leukocytosis white blood cell 15.5 hemoglobin 15.9 hematocrit 47.5 creatinine 1.56 GFR 48 glucose 204 T. bili 2.1 UA not concerning for urinary tract infection CT abdomen pelvis with IV contrast showed suspected partial small bowel obstruction. General surgery was consulted, patient will be admitted for further evaluation and management of small bowel obstruction. Hospital Course: Rick Giron is a pleasant 68 year old male with a past medical history significant for diabetes type IIdiet controlled, hypertension, and bipolar disorder who was admitted to the [facility] on 10/05/23 for small bowel obstruction. Rick presented to the ED with Chief complaint of left lower quadrant abdominal pain and vomiting. CT abdomen pelvis with IV contrast showed suspected partial small bowel obstruction. General surgery was consulted. He was able to have a BM 3/5, he has tolerated p.o. diet without nausea, he is ambulating independently in the hallway, he is hemodynamically stable and ready for discharge. On 10/06/23, Rick was seen on morning rounds and deemed medically stable for discharge. Rick was discharged with instructions to schedule follow-up appointments with PCP and Dr. Hylton. No new medications this admission. The patient and family members were given the opportunity to ask questions and reported no further questions. Furthermore, all questions were answered to the best of my ability. A copy of this discharge summary will be sent to the above providers to facilitate continuity of care. Today, I personally spent 50 minutes with Rick, of which greater than 50% of the time was spent in patient education, counseling, and coordination of care as described above. Physical Exam General: AAOx3, NAD HEENT: Atraumatic, PERRLA, Mucous membr. moist/pink Neck: Supple, 2+ carotid pulse no bruit, No LAD Respiratory: Clear to auscultation bilaterally, symmetrical chest wall movement, on room air Cardiovascular: RRR, S1 S2 present, no murmur noted Gastrointestinal: Normal bowel sounds,ND/NT Musculoskeletal: No tenderness Integumentary: No rashes Neurological: Normal gait, Normal speech, Normal strength at 5/5 x4 extr, Normal tone, Normal affect Lymphatics: No axilla or inguinal lymphadenopathy Vital Signs/Physical Exam: Temp Pulse Resp BP Pulse Ox 98.0 F 45 L 16 173/82 H 99 10/06/23 16:00 10/06/23 16:00 10/06/23 16:00 10/06/23 16:00 10/06/23 16:00 Laboratory Data at Discharge: WBC 6.50 thou/uL (4.3-10.9) 10/06/23 05:20 Hgb 14.0 g/dL (13.6-17.9) D 10/06/23 05:20 Hct 42.0 % (39.6-49.0) 10/06/23 05:20 Plt Count 200 thou/uL (152-406) 10/06/23 05:20 Sodium 143 mEq/L (136-145) 10/06/23 05:20 Potassium 4.4 mEq/L (3.5-5.1) 10/06/23 05:20 BUN 17 mg/dL (7-18) 10/06/23 05:20 Creatinine 1.44 mg/dL (0.70-1.30) H 10/06/23 05:20 Glucose 103 mg/dL (74-106) 10/06/23 05:20 Total Bilirubin 2.1 mg/dL (0.2-1.0) H 10/05/23 04:50 AST 23 U/L (15-37) 10/05/23 04:50 ALT 39 U/L (16-61) 10/05/23 04:50 Alkaline Phosphatase 100 U/L (45-117) 10/05/23 04:50 Lipase 36 U/L (13-75) 10/05/23 04:50 Home Medications: Dulce Carbonate [Dulce Carbonate ER] 450 mg PO BEDTIME 06/04/22 Losartan Potassium 1 tab PO DAILY 07/31/23 Trazodone [Desyrel*] 25 mg PO BEDTIME PRN 07/31/23 Famotidine [Pepcid*] 1 tab PO BEDTIME 10/05/23 Nebivolol HCl 0.5 tab PO BEDTIME 10/05/23 Omeprazole 1 tab PO DAILY 10/05/23 Rosuvastatin [Crestor*] 1 tab PO BEDTIME 10/05/23 Physician Discharge Instructions: 1. Please call and schedule a follow-up appointment with your PCP in 3-5 days - Please follow-up with your PCP for medication refills/adjustments 2. Please call and schedule a follow-up appointment with Dr. Hylton in 3-5 days 3. Continue soft GI diet 4. No activity restrictions, ambulate frequently 5. Return to ED if symptoms worsen 6. No new medications this admission Diet: Regular Activity: Ad ruslan Followup: Naman Hylton MD [ACTIVE - CAN ADMIT] - (call to schedulean appointemnt in 3- 5 days) Harjinder Mendoza MD [Primary Care Provider] - (call to schedule an appointment in 3-5 days) Time spent managing pt's care (in minutes): 50
[2023-10-06] MEDS ORDERED: LITHIUM 450 MG PO SCH (21:00)
[2023-10-07] MEDS ORDERED: NEBIVOLOL 2.5 MG PO SCH (09:00)
== END 2023-10-06 18:50 | disposition home or self-care (01) | DRG 390 ==
LOC: ER 04:26 → ERHOLD 07:18 → 4TH 09:17
PROVIDERS: ADMIT Hospitalist; ATTEND Internal Medicine
DX: K56.600 Partial intestinal obstruction, unspecified as to cause (principal); I10 Essential (primary) hypertension; E11.65 Type 2 diabetes mellitus with hyperglycemia; F31.9 Bipolar disorder, unspecified; K52.9 Noninfective gastroenteritis and colitis, unspecified; K42.9 Umbilical hernia without obstruction or gangrene; Z88.5 Allergy status to narcotic agent; Z79.899 Other long term (current) drug therapy
CPT/HCPCS: 36415; 74177; 74250; 80048; 80053; 80178; 81001; 82947; 83036; 83690; 85025; 96361; 96365; 96366; 96375; 99285; J1170; J1650; J2405; J2543; J7030; Q9967

== ENCOUNTER 2023-11-12 17:06 | Emergency (ER) | payer OTHER ==
--- OUTSIDE RECORDS SUMMARY | 2023-11-12 17:09 | XMS REPORT | Clinical Summary ---
Author Name Unknown Organization 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 Last one this [id number]. Polyp of colon 2009 I have had 3 Col onoscopys. Last one this [id number]. Gallstone 2009 With each ultras ound I have the gallstone has shrunk. Bipolar disorder 1989 I take [place] once a day. 450mg Family History Medical [...] Maintenance Due Date Last Done Comments COVID-19 Vaccine (#1) 1955 Influenza Vaccine 04/03/2023 Care Teams Cooler Deliverer Relationship Specialty Start Date End Date Ancelmo Bolaños MD [address] [place] [id number] PCP - General Surgical Oncology 05/17/20 Harjinder Mendoza MD [address] [place] [id number] PCP - External Primary Care Provider [facility] 05/17/20 Ancelmo Rutherford MD [address] [place] [id number] PCP - External Follow Up A Internal Medicine 05/17/20
[2023-11-12 18:24] LABS: Basophils % 0.2 % (0-1.3); Eosinophils % 0.3 % (0-4.4); Hematocrit 49.8 % (39.6-49.0); Hemoglobin 16.4 g/dL (13.6-17.9); Lymphocytes % 4.6 % (15.3-44.8); MCH 27.8 pg (27.0-35.0); MCHC 32.9 g/dL (32.0-36.0); MCV 84.5 fL (80-100); Monocytes % 4.9 % (3.3-12.3); Platelets 281 thou/uL (152-406); RBC Red Blood Cell Count 5.89 M/uL (4.33-5.43); Red Cell Distribution Width 14.4 % (12.1-15.2)
[2023-11-12 18:25] LABS: Absolute Eosinophils 0.1 K/uL (0-0.5); Absolute Lymphocytes (CBC) 0.8 K/uL (0.7-4.9); Absolute Monocytes 0.9 K/uL (0.1-1.3); Absolute Neutrophil 15.8 K/uL (1.8-8.0)
[2023-11-12 18:37] LABS: Albumin 4.3 g/dL (3.4-5.0); Albumin/Globulin Ratio 1.3 (1.1-1.8); Anion Gap 9.4 mEq/L (5.0-15.0); Globulin 3.4 g/dL (2.3-3.5); Potassium 4.4 mEq/L (3.5-5.1); Protein, Total 7.7 g/dL (6.4-8.2)
[2023-11-12] MEDS ORDERED: ONDANSETRON 4 MG/2 ML VIAL ONE (18:40)
[2023-11-12] MEDS ORDERED: MORPHINE 4 MG/ML SYR ONE (18:41)
[2023-11-12] MEDS ORDERED: NA CHLORIDE 0.9% 1,000 ML ONE ×2 (18:41→22:42)
--- NOTE | 2023-11-12 19:37 | RAD REPORT ---
EXAM DESCRIPTION: CTAbdomen Pelvis W Contrast - 11/12/2023 7:15 pm CLINICAL HISTORY: ABD PAIN COMPARISON: Abdomen Pelvis W Contrast dated 10/05/2023; Abdomen Pelvis W Contrast dated 01/15/2023; Abdomen Pelvis Wo Contrast dated 07/31/2023; Abdomen Wo Contrast dated 06/19/2023 TECHNIQUE: CT of the abdomen and pelvis was performed. All CT scans are performed using dose optimization technique as appropriate and may include automated exposure control or mA/KV adjustment according to patient size. FINDINGS: Lower chest: Mild circumferential thickened distal esophagus. Trace right pleural effusion . Coronary calcifications. Liver: No acute abnormality or suspicious lesions. Biliary: Cholelithiasis. Stomach: No significant focal abnormality. Duodenum: No significant focal abnormality. Pancreas: No significant abnormality. Spleen: No significant abnormality. Adrenal: No suspicious lesions. Kidney/ureter: No hydronephrosis. No renal calculi. Too small to characterize and/or benign appearing renal lesions are noted. Retroperitoneum: No retroperitoneal adenopathy. Vascular: No aneurysm. Bowel: Diverticulosis without diverticulitis.. Partial small bowel obstruction present with at least two suspected inflammatory strictures. There are several skip segments of wall thickening and enhanc ement involving the mid and distal ileum. The terminal ileum does not appear actively inflamed. Peritoneum: Small volume of free fluid. Bladder: Grossly unremarkable. Reproductive: No adnexal masses. Bones: No acute fracture. Other: n/a IMPRESSION: At least partial small bowel obstruction secondary to at least two short segments of inf lammatory stricturing. This could reflect inflammatory bowel disease (i.e. Crohn's).
[2023-11-12 20:55] LABS: Blood Morphology Comment NOT SEEN (NOT SEEN); Platelet Estimate ADEQ; White Blood Cell Scan OK (OK)
--- NOTE | 2023-11-12 21:32 | RAD REPORT ---
EXAM DESCRIPTION: US - Abdomen Exam Limited - 11/12/2023 8:45 pm CLINICAL HISTORY: ABD PAIN COMPARISON: Abdomen Pelvis W Contrast dated 11/12/2023 FINDINGS: The gallbladder demonstrates shadowing gallstones. A stone is present near the gallbladder neck. No pericholecystic fluid or gallbladder wall thickening. The common bile duct is normal measur ing 4 mm. No sonographic Love's sign elicited. The liver demonstrates no findings of intrahepatic biliary dilatation. IMPRESSION: Cholelithiasis with distended gallbladder. No sonographic evidence of acute cholecystiti s, however.
--- NOTE | 2023-11-12 22:01 | EDPHYS ---
Physician Documentation [facility] Name: Rick Giron Age: 68 yrs Sex: Male : 1955 Arrival Date: 11/12/2023 Time: 17:06 Bed 19 Private MD: MICKEY Physician Abran Berg HPI: 11/11 17:46 This 68 yrs old Male presents to ER via Ambulatory with complaints of Abdominal Pain, sb4 Vomiting. 17:46 The patient presents with abdominal pain that is diffuse. Onset: The symptoms/episode sb4 began/occurred today. The symptoms radiate to back. Associated signs and symptoms: Pertinent positives: nausea and vomiting. The patient has experienced similar episodes in the past, a few times, today's symptoms are similar. The patient has been recently seen by a physician: a information management officer. Historical: - Allergies: 17:24 ambien; ll1 17:24 Codeine; ll1 - PMHx: 17:24 Bipolar disorder; Diverticulitis; DM type 2; Heart Murmur; HTN; Umbilical hernia; ll1 - Immunization history:: Adult Immunizations up to date. - Infectious Disease History:: Denies. - Social history:: Smoking status: Patient denies any tobacco usage or history of. ROS: 17:46 Constitutional: Negative for fever, chills, and weight loss, sb4 17:46 Abdomen/GI: Positive for abdominal pain, nausea and vomiting, 17:46 All other systems are negative, Exam: 17:46 Constitutional: This is a well developed, well nourished patient who is awake, alert, sb4 and in no acute distress. Head/Face: Normocephalic, atraumatic. Eyes: Extra-ocular motions intact. Periorbital areas with no swelling, redness, or edema. ENT: Mucous membranes moist. Cardiovascular: Regular rate and rhythm with a normal S1 and S2. Respiratory: Lungs have equal breath sounds bilaterally, clear to auscultation and percussion. No rales, rhonchi or wheezes noted. No increased work of breathing, no retractions or nasal flaring. Skin: Warm, dry with normal turgor. Normal color with no rashes, no lesions, and no evidence of cellulitis. MS/ Extremity: Pulses equal, no cyanosis. Neurovascular intact. Full, normal range of motion. Neuro: Awake and alert, GCS 15, oriented to person, place, time, and situation. Motor strength 5/5 in all extremities. Sensory grossly intact. 17:46 Abdomen/GI: Inspection: distension, that is mild, in the right lower quadrant and left lower quadrant, Bowel sounds: diminished, in the right lower quadrant and left lower quadrant, Palpation: abdomen is soft and non-tender, Vital Signs: 17:25 BP 122 / 96; Pulse 79; Resp 18; Temp 97.2; Pulse Ox 96% on R/A; Pain 8/10; ll1 18:45 BP 150 / 77; Pulse 57; Resp 18; Pulse Ox 94% on R/A; Pain 10/10; nj1 20:00 BP 120 / 54; Pulse 58; Resp 17; Pulse Ox 97% on R/A; rv 21:00 BP 117 / 61; Pulse 56; Resp 16; Pulse Ox 96% ; rv 22:00 BP 125 / 68; Pulse 61; Resp 17; Pulse Ox 98% on R/A; rv 23:00 BP 113 / 55; Pulse 52; Resp 16; Pulse Ox 96% on R/A; rv 11/12 00:13 BP 115 / 63; Pulse 51; Resp 15; Pulse Ox 96% on R/A; rv 02:06 BP 119 / 62; Pulse 55; Resp 15; Temp 98; Pulse Ox 97% on R/A; rv 11/11 17:25 Pain Scale: Adult ll1 18:45 Pain Scale: Adult nj1 [place] Coma Score: 00:13 Eye Response: spontaneous(4). Motor Response: obeys commands(6). Verbal Response: rv oriented(5). Total: 15. MDM: 11/11 17:35 Patient medically screened. sb4 22:00 Data reviewed: vital signs, nurses notes, lab test result(s), radiologic studies, and sb4 as a result, I will admit patient. Consideration of Admission/Observation Patient was admitted/placed on observation. Counseling: I had a detailed discussion with the patient and/or guardian regarding the historical points, exam findings, and any diagnostic results supporting the discharge/admit diagnosis, lab results, radiology results, the need for further work-up and treatment in the hospital. 22:39 Management of patient was discussed with the following: Geophysics Professor: Dr. Patricio, requests sb4 patient to be transferred for GI. 11/12 00:31 Management of patient was discussed with the following: Geophysics Professor: gen Alyson sb4 surgery, agrees to consult. 11/11 17:36 Order name: CBC with Diff; Complete Time: 20:55 sb4 11/11 17:36 Order name: CMP; Complete Time: 18:37 sb4 11/11 17:36 Order name: Lipase; Complete Time: 18:37 sb4 11/11 20:55 Order name: CBC Smear Scan; Complete Time: 20:55 EDMS 11/11 17:37 Order name: CT Abd/Pelvis - IV Contrast Only; Complete Time: 19:39 sb4 11/11 19:48 Order name: Abdomen Limited US; Complete Time: 21:33 sb4 11/11 17:36 Order name: IV Saline Lock; Complete Time: 18:15 sb4 11/11 17:36 Order name: Labs collected and sent; Complete Time: 18:15 sb4 11/11 22:29 Order name: NPO; Complete Time: 22:40 sb4 Administered Medications: 11/11 18:43 Drug: NS 0.9% IV 1000 ml IV at 1 bolus Per protocol; 1000 mL bolus Route: IV; Rate: 1 nj1 bolus; Site: right antecubital; 22:41 Follow up: IV Status: Completed infusion; IV Intake: 1000ml rv 18:43 Drug: Ondansetron IVP 4 mg IVP once; over 2 minutes Route: IVP; Site: right antecubital;nj1 22:41 Follow up: Response: No adverse reaction; Marked relief of symptoms rv 18:45 Drug: morphine IVP or IV 4 mg IVP once over 4 mins Route: IVP; Infused Over: 4 mins; nj1 Site: right antecubital; 22:41 Follow up: Response: No adverse reaction; Marked relief of symptoms rv 22:48 Drug: MethylPrednisoLONE IVP 125 mg IVP once Route: IVP; Site: right forearm; rv 11/12 00:11 Follow up: Response: No adverse reaction rv 11/11 22:48 Drug: NS 0.9% IV 1000 ml IV at 125 ml/hr continuous Route: IV; Rate: 125 ml/hr; Site: rv right forearm; 11/12 00:11 Follow up: IV Status: Infusion continued upon transfer rv 00:11 Drug: Piperacillin-Tazobactam IVPB 3.375 grams IVPB once over 60 mins; (mix in NS 100 rv mL) Route: IVPB; Infused Over: 60 mins; Site: right forearm; 01:45 Follow up: Response: No adverse reaction; IV Status: Completed infusion rv Disposition Summary: 11/12/23 22:38 Transfer Ordered Notes: Transfer Location: [facility] sb4 Reason: Higher level of care sb4 Condition: Fair(11/12/23 22:38) sb4 Problem: new(11/12/23 22:38) sb4 Symptoms: are unchanged(11/12/23 22:38) sb4 Accepting Physician: GI(11/13/23 02:08) rv Diagnosis - parial small bowel obstruction secondary to inflammatory strictures sb4 Forms: - Medication Reconciliation Form sb4 - SBAR form sb4 Signatures: Dispatcher [employer] EDMS Mike Grady RN RN rv Vinh Moreno RN RN ll1 Radha Lara PA-C PAHawkC sb4 Rosa Elena Schulz RN RN nj1 Corrections: (The following items were deleted from the chart) 11/11 17:36 17:36 CBC+H.LAB.BRZ ordered. EDMS EDMS 17:36 17:36 COMPREHENSIVE METABOLIC PANEL+C.LAB.BRZ ordered. EDMS EDMS 17:36 17:36 LIPASE+C.LAB.BRZ ordered. EDMS EDMS 17:38 17:38 Abdomen Pelvis W Con+CT.RAD.BRZ ordered. EDMS EDMS 22:37 22:00 Inpatient Admission sb4 sb4 22:37 22:00 Julien Burch sb4 sb4 22:37 22:00 Telemetry/MedSurg (Inpatient) sb4 sb4 22:37 22:00 Fair sb4 sb4 22:37 22:00 new sb4 sb4 22:37 22:00 are unchanged sb4 sb4 22:37 22:00 Standard sb4 sb4 22:37 22:00 sb4 sb4 22:37 22:00 partial SBO sb4 sb4 11/12 02:08 11/11 22:38 GI sb4 rv
--- NOTE | 2023-11-12 22:01 | ER ---
Nurse's Notes [facility] Name: Rick Giron Age: 68 yrs Sex: Male : 1955 Arrival Date: 11/12/2023 Time: 17:06 Bed 19 Private MD: Diagnosis: parial small bowel obstruction secondary to inflammatory strictures Presentation: 11/11 17:25 Chief complaint: Patient states: Abdominal pain with N/V began again today at 1230. ll1 Seen here at the beginning of October for same. Coronavirus screen: Client denies travel out of the [place] in the last 14 days. At this time, the client does not indicate any symptoms associated with coronavirus-19. Ebola Screen: Patient denies travel to an Ebola-affected area in the 21 days before illness onset. Initial Sepsis Screen: Does the patient meet any 2 criteria? No. Patient's initial sepsis screen is negative. Does the patient have a suspected source of infection? No. Patient's initial sepsis screen is negative. Risk Assessment: Do you want to hurt yourself or someone else? Patient reports no desire to harm self or others. Onset of symptoms was November 12, 2023. 17:25 Method Of Arrival: Ambulatory ll1 17:25 Acuity: CAL 3 ll1 Triage Assessment: 17:27 General: Appears distressed, uncomfortable, ill, Behavior is cooperative, appropriate ll1 for age, vomiting throughout triage. Pain: Complains of pain in abdomen Quality of pain is described as aching. Neuro: No deficits noted. Cardiovascular: No deficits noted. Respiratory: No deficits noted. GI: Reports lower abdominal pain, upper abdominal pain, cramping, nausea, vomiting. Historical: - Allergies: 17:24 ambien; ll1 17:24 Codeine; ll1 - PMHx: 17:24 Bipolar disorder; Diverticulitis; DM type 2; Heart Murmur; HTN; Umbilical hernia; ll1 - Immunization history:: Adult Immunizations up to date. - Infectious Disease History:: Denies. - Social history:: Smoking status: Patient denies any tobacco usage or history of. Screenin:49 [facility] ED Fall Risk Assessment (Adult) History of falling in the last 3 months, nj1 including since admission No falls in past 3 months (0 pts) Confusion or Disorientation No (0 pts) Intoxicated or Sedated No (0 pts) Impaired Gait No (0 pts) Mobility Assist Device Used No (0 pt) Altered Elimination No (0 pt) Score/Fall Risk Level 0 - 2 = Low Risk Oriented to surroundings, Maintained a safe environment, Hourly rounding (assess needs \T\ fall precautionary measures) done. Abuse screen: Denies threats or abuse. Denies injuries from another. Nutritional screening: No deficits noted. Tuberculosis screening: No symptoms or risk factors identified. Assessment: 18:49 General: Appears in no apparent distress. uncomfortable, Behavior is calm, cooperative, nj1 appropriate for age. Pain: Complains of pain in abdomen Pain currently is 10 out of 10 on a pain scale. Neuro: Level of Consciousness is awake, alert, obeys commands, Oriented to person, place, time, situation. Cardiovascular: Patient's skin is warm and dry. Respiratory: Airway is patent Respiratory effort is even, unlabored. GI: Reports lower abdominal pain, upper abdominal pain, nausea, vomiting, since 12:30pm. Vital Signs: 17:25 BP 122 / 96; Pulse 79; Resp 18; Temp 97.2; Pulse Ox 96% on R/A; Pain 8/10; ll1 18:45 BP 150 / 77; Pulse 57; Resp 18; Pulse Ox 94% on R/A; Pain 10/10; nj1 20:00 BP 120 / 54; Pulse 58; Resp 17; Pulse Ox 97% on R/A; rv 21:00 BP 117 / 61; Pulse 56; Resp 16; Pulse Ox 96% ; rv 22:00 BP 125 / 68; Pulse 61; Resp 17; Pulse Ox 98% on R/A; rv 23:00 BP 113 / 55; Pulse 52; Resp 16; Pulse Ox 96% on R/A; rv 11/12 00:13 BP 115 / 63; Pulse 51; Resp 15; Pulse Ox 96% on R/A; rv 02:06 BP 119 / 62; Pulse 55; Resp 15; Temp 98; Pulse Ox 97% on R/A; rv 11/11 17:25 Pain Scale: Adult ll1 18:45 Pain Scale: Adult nj1 [place] Coma Score: 00:13 Eye Response: spontaneous(4). Motor Response: obeys commands(6). Verbal Response: rv oriented(5). Total: 15. ED Course: 11/11 17:08 Patient arrived in ED. rg4 17:17 Radha Lara [facility]C [facility]. sb4 17:17 Abran Berg MD is Attending Physician. sb4 17:25 Triage completed. ll1 17:26 Arm band placed on. ll1 18:15 CBC with Diff Sent. bc6 18:15 CMP Sent. bc6 18:15 Lipase Sent. bc6 18:15 Initial lab(s) drawn, by me, sent to lab. Inserted saline lock: 20 gauge in right bc6 forearm, using aseptic technique. Blood collected. 18:34 Rosa Elena Schulz RN is Primary Nurse. nj1 18:50 Patient has correct armband on for positive identification. Bed in low position. Call nj1 light in reach. Adult w/ patient. Provided Education on: call light, fall precautions. 18:53 Report given to Hesham LEBRON. nj1 19:15 CT Abd/Pelvis - IV Contrast Only In Process Unspecified. EDMS 20:47 Abdomen Limited US In Process Unspecified. EDMS 22:00 Julien Burch MD is Hospitalizing Provider. sb4 23:[address] [facility], spoke with Lisa Arias. wm 11/12 01:[address] [facility] Rm:[address] Bose \T\ 0047 per Lisa Arias. wm 01:38 EMS will transport with an ETA \T\ 0155. wm 02:07 No provider procedures requiring assistance completed. Patient transferred, IV remains rv in place. Administered Medications: 11/11 18:43 Drug: NS 0.9% IV 1000 ml IV at 1 bolus Per protocol; 1000 mL bolus Route: IV; Rate: 1 nj1 bolus; Site: right antecubital; 22:41 Follow up: IV Status: Completed infusion; IV Intake: 1000ml rv 18:43 Drug: Ondansetron IVP 4 mg IVP once; over 2 minutes Route: IVP; Site: right antecubital;nj1 22:41 Follow up: Response: No adverse reaction; Marked relief of symptoms rv 18:45 Drug: morphine IVP or IV 4 mg IVP once over 4 mins Route: IVP; Infused Over: 4 mins; nj1 Site: right antecubital; 22:41 Follow up: Response: No adverse reaction; Marked relief of symptoms rv 22:48 Drug: MethylPrednisoLONE IVP 125 mg IVP once Route: IVP; Site: right forearm; rv 11/12 00:11 Follow up: Response: No adverse reaction rv 11/11 22:48 Drug: NS 0.9% IV 1000 ml IV at 125 ml/hr continuous Route: IV; Rate: 125 ml/hr; Site: rv right forearm; 11/12 00:11 Follow up: IV Status: Infusion continued upon transfer rv 00:11 Drug: Piperacillin-Tazobactam IVPB 3.375 grams IVPB once over 60 mins; (mix in NS 100 rv mL) Route: IVPB; Infused Over: 60 mins; Site: right forearm; 01:45 Follow up: Response: No adverse reaction; IV Status: Completed infusion rv Medication: 00:13 VIS not applicable for this client. rv Intake: 11/11 22:41 IV: 1000ml; Total: 1000ml. rv Outcome: 22:00 Decision to Hospitalize by Provider. sb4 22:38 ER care complete, transfer ordered by MD. sb4 11/12 02:07 Transferred by ground EMS to [facility], Transfer form completed. rv X-rays sent w/ patient. Note: report given to Marnie LEBRON Condition: good Instructed on the need for transfer, 02:08 Patient left the ED. rv Signatures: Dispatcher [employer] Paige Watson rg4 Mike Grady RN RN rv Vinh Moreno RN RN ll1 Apple Garcia Sophia, PA-C PACristina sb4 Geovanna Steve 6 Rosa Elena Schulz, RN RN nj1 Corrections: (The following items were deleted from the chart) 02:07 02:07 Instructed on the need for admit, rv rv 02:08 02:07 Transferred by ground EMS to [facility], Transfer form rv completed. X-rays sent w/ patient. rv
[2023-11-12] MEDS ORDERED: METHYLPREDNISOLONE 125 MG INJ ONE (22:42)
[2023-11-13] MEDS ORDERED: PIPERACIL/TAZO 3.375 GM VIAL IV ONE (00:05)
[2023-11-13] MEDS ORDERED: NA CHLORIDE 0.9% 100 ML ONE (00:05)
[2023-11-13 09:17] VITALS: BP 119/62; TEMP 98; O2SAT 97
== END 2023-11-13 02:08 | disposition short-term general hospital (02) ==
LOC: ER 17:06
DX: K56.690 Other partial intestinal obstruction (principal); Z88.5 Allergy status to narcotic agent; Z88.8 Allergy status to other drugs, medicaments and biological substances
CPT/HCPCS: 85025; 36415; 83690; 80053; 74177; 76705; 99285; Q9967; J2543; J2930; J2405; J7030 ×2

== ENCOUNTER 2023-12-08 22:11 | Emergency (ER) | payer OTHER ==
--- OUTSIDE RECORDS SUMMARY | 2023-12-08 22:14 | XMS REPORT | Clinical Summary ---
Author Name Unknown Organization [facility] Address [address] [place] [address] Care Team Providers Care Senior Program Manager Name Role Phone Ancelmo Bolaños MD Primary Care Provider [phone] Harjinder Mendoza MD Unavailable [phone] Ancelmo Rutherford MD Unavailable [phone] Allergies Active Allergy Reactions Criticality Noted Date Comments Ambien Larry 06/01/2020 Sonya Dalal,Other (See Comments) 04/25/2019 Zolpidem 04/25/2019 Other reaction(s): Unknown Reaction Medications Medication Sig Dispensed Refills Start Date End Date Status 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 Last one this [id number]. Polyp of colon 2009 I have had 3 Col onoscopys. Last one this [id number]. Gallstone 2009 With each ultras ound I have the gallstone has shrunk. Bipolar disorder 1989 I take Revloc once a day. 450mg Family History Medical [...] Comments COVID-19 Vaccine (#1) 1955 Influenza Vaccine 04/03/2024 Care Teams Senior Program Manager Relationship Specialty Start Date End Date Ancelmo Bolaños MD [address] [place] [phone] PCP - General Surgical Oncology 05/17/20 Harjinder Mendoza MD [address] [place] [id number] PCP - External Primary Care Provider [facility] 05/17/20 Ancelmo Rutherford MD [address] [place] [phone] PCP - External Follow Up A Internal Medicine 05/17/20
[2023-12-08 23:24] LABS: SARS-CoV-2 Antigen CONTROL BLUE LINE VIS/BG OK; SARS-CoV-2 Antigen Rapid Res Negative (Negative)
[2023-12-08] MEDS ORDERED: IBUPROFEN 200 MG TAB PO ONE (23:39)
--- NOTE | 2023-12-08 23:49 | EDPHYS ---
Physician Documentation [facility] Name: Rick Giron Age: 68 yrs Sex: Male : 1955 Arrival Date: 12/08/2023 Time: 22:11 Bed 12 Private MD: ED Physician Giovanni Clark HPI: 12/07 22:26 This 68 yrs old Male presents to ER via Unassigned with complaints of Nausea/Vomiting, kb Cough, Congestion. 22:26 Pt is a 68 year old male who presents for cough, congestion, headache, fever up to 101, kb nausea. Denies vomiting, diarrhea. States symptoms began at noon today. Denies sick contacts. . Historical: - Allergies: 22:40 ambien; jb4 22:40 Codeine; jb4 - PMHx: 22:40 Bipolar disorder; DM type 2; Diverticulitis; Heart Murmur; HTN; Umbilical hernia; jb4 - PSHx: 22:40 None; jb4 - Immunization history:: Adult Immunizations up to date. - Infectious Disease History:: Denies. - Social history:: Smoking status: Patient denies any tobacco usage or history of. ROS: 22:30 Constitutional: As per HPI kb Exam: 22:30 Constitutional: This is a well developed, well nourished patient who is awake, alert, kb and in no acute distress. Head/Face: Normocephalic, atraumatic. ENT: Moist Mucous membranes Cardiovascular: Regular rate Respiratory: Respirations even and unlabored. No increased work of breathing. Talking in full sentences Abdomen/GI: Soft, non-tender. No distention Skin: Warm, dry with normal turgor. Normal color. MS/ Extremity: Pulses equal, no cyanosis. Neurovascular intact. Full, normal range of motion. Neuro: Awake and alert, GCS 15, oriented to person, place, time, and situation. Moves all extremities. Normal gait. Vital Signs: 22:38 BP 158 / 83; Pulse 86; Resp 16; Temp 101.7(O); Pulse Ox 93% on R/A; Weight 86.18 kg jb4 (R); Height 5 ft. 10 in. (R); Pain 4/10; 12/08 00:11 Temp 99.2(TE); jb4 12/07 22:38 Body Mass Index 27.26 (86.18 kg, 177.8 cm) jb4 12/07 22:38 Pain Scale: Adult jb4 MDM: 12/07 22:16 Patient medically screened. kb 22:30 Differential diagnosis: flu, covid, pneumonia, strep, uri. Data reviewed: vital signs, kb nurses notes. Historians other than the Patient: Spouse/Significant Other: . 23:48 Counseling: I had a detailed discussion with the patient and/or guardian regarding the kb historical points, exam findings, and any diagnostic results supporting the discharge/admit diagnosis, lab results, radiology results, the need for outpatient follow up, a family practitioner, to return to the emergency department if symptoms worsen or persist or if there are any questions or concerns that arise at home. 12/07 22:30 Order name: Flu; Complete Time: 23:25 kb 12/07 22:30 Order name: SARS-COV-2 Antigen Rapid; Complete Time: 23:25 kb 12/07 22:30 Order name: Strep; Complete Time: 23:25 kb 12/07 23:27 Order name: Throat Culture EDID 12/07 22:30 Order name: Chest Single View XRAY kb Administered Medications: 23:50 Drug: Ibuprofen PO 600 mg PO once Route: PO; jb4 12/08 00:08 Drug: Tessalon Perle PO 100 mg PO once Route: PO; jb4 Disposition: 04:48 Co-signature as Attending Physician, Giovanni Clark MD I agree with the assessment sp4 and plan of care. I reviewed the patient's care provided by Advanced Practice Provider \T\ agree w/ the diagnosis \T\ care plan. I personally saw the pt \T\ performed a substantive portion of the visit, incldng all aspects of the (History/Exam/Medical Decision Making). Disposition Summary: 12/08/23 23:49 Discharge Ordered Notes: Location: Home kb Condition: Stable kb Diagnosis - Acute upper respiratory infection, unspecified kb Followup: kb - With: Emergency Department - When: As needed - Reason: Worsening of condition Followup: kb - With: Private Physician - When: 2 - 3 days - Reason: Recheck today's complaints, Continuance of care, Re-evaluation by your physician Discharge Instructions: - Discharge Summary Sheet kb - Upper Respiratory Infection, Adult, [id number] kb Forms: - Medication Reconciliation Form kb - Antibiotic Education kb - Prescription Opioid Use kb - Patient Portal Instructions kb - Leadership Thank You Letter kb Prescriptions: - Tessalon Perles 100 mg Oral Capsule - take 1 capsule ORAL route every 8 hours As needed; 15 capsule; Refills: 0, kb Product Selection Permitted Signatures: Dispatcher [employer] EDMS Shayy Berry, KNOT TIER-C RACHEL-Ben De Jesus RN RN jb4 Giovanni Clark MD MD sp4 Corrections: (The following items were deleted from the chart) 12/07 22:30 22:30 Chest Single View+[email or web address] ordered. EDID EDMS
--- NOTE | 2023-12-08 23:49 | ER ---
Nurse's Notes [facility] Name: Rick Giron Age: 68 yrs Sex: Male : 1955 Arrival Date: 12/08/2023 Time: 22:11 Bed 12 Private MD: Diagnosis: Acute upper respiratory infection, unspecified Presentation: 12/07 22:38 Chief complaint: Patient states: I have been coughing all day and had nausea. I have a jb4 headache and congestion. Coronavirus screen: At this time, the client does not indicate any symptoms associated with coronavirus-19. Ebola Screen: No symptoms or risks identified at this time. Initial Sepsis Screen: Does the patient meet any 2 criteria? No. Patient's initial sepsis screen is negative. Does the patient have a suspected source of infection? No. Patient's initial sepsis screen is negative. Risk Assessment: Do you want to hurt yourself or someone else?. Onset of symptoms was December 08, 2023. Transition of care: patient was not received from another setting of care. 22:38 Method Of Arrival: Ambulatory jb4 22:38 Acuity: CAL 3 jb4 Historical: - Allergies: 22:40 ambien; jb4 22:40 Codeine; jb4 - PMHx: 22:40 Bipolar disorder; DM type 2; Diverticulitis; Heart Murmur; HTN; Umbilical hernia; jb4 - PSHx: 22:40 None; jb4 - Immunization history:: Adult Immunizations up to date. - Infectious Disease History:: Denies. - Social history:: Smoking status: Patient denies any tobacco usage or history of. Screenin/08 00:09 [facility] ED Fall Risk Assessment (Adult) History of falling in the last 3 months, jb4 including since admission No falls in past 3 months (0 pts) Confusion or Disorientation No (0 pts) Intoxicated or Sedated No (0 pts) Impaired Gait No (0 pts) Mobility Assist Device Used No (0 pt) Altered Elimination No (0 pt) Score/Fall Risk Level 0 - 2 = Low Risk Oriented to surroundings, Maintained a safe environment. Abuse screen: Denies threats or abuse. Nutritional screening: No deficits noted. Tuberculosis screening: No symptoms or risk factors identified. Assessment: 00:09 General: Appears in no apparent distress. uncomfortable, Behavior is calm, cooperative, jb4 appropriate for age. Pain: Denies pain. Neuro: Level of Consciousness is awake, alert, obeys commands, Oriented to person, place, time, situation. Cardiovascular: Patient's skin is warm and dry. Respiratory: Airway is patent Respiratory effort is even, unlabored, Respiratory pattern is regular, symmetrical. GI: Abdomen is flat, non-distended. : No signs and/or symptoms were reported regarding the genitourinary system. EENT: No signs and/or symptoms were reported regarding the EENT system. Derm: Skin is intact, Skin is pink, warm \T\ dry. Musculoskeletal: Circulation, motion, and sensation intact. Range of motion: intact in all extremities. Vital Signs: 12/07 22:38 BP 158 / 83; Pulse 86; Resp 16; Temp 101.7(O); Pulse Ox 93% on R/A; Weight 86.18 kg jb4 (R); Height 5 ft. 10 in. (R); Pain 4/10; 12/08 00:11 Temp 99.2(TE); jb4 12/07 22:38 Body Mass Index 27.26 (86.18 kg, 177.8 cm) jb4 05 22:38 Pain Scale: Adult jb4 ED Course: 12/07 22:16 Patient arrived in ED. gm2 22:16 Shayy Berry FNP-C [facility]. kb 22:16 Giovanni Clark MD is Attending Physician. kb 22:40 Triage completed. jb4 22:40 Arm band placed on right wrist. jb4 22:48 Strep Sent. ty 22:48 SARS-COV-2 Antigen Rapid Sent. ty 22:48 Flu Sent. ty 22:50 Chest Single View XRAY In Process Unspecified. EDMS 12/08 00:09 Patient has correct armband on for positive identification. Bed in low position. Call jb4 light in reach. Side rails up X 1. Provided Education on: discharge instructions. Client placed on continuous cardiac and pulse oximetry monitoring. NIBP monitoring applied. 00:09 No provider procedures requiring assistance completed. Patient did not have IV access jb4 during this emergency room visit. Administered Medications: 12/07 23:50 Drug: Ibuprofen PO 600 mg PO once Route: PO; jb4 12/08 00:08 Drug: Tessalon Perle PO 100 mg PO once Route: PO; jb4 Medication: 00:09 VIS not applicable for this client. jb4 Outcome: 12/07 23:49 Discharge ordered by MD. townsend 12/08 00:09 Discharged to home ambulatory, jb4 Condition: stable Discharge instructions given to patient, Instructed on discharge instructions, follow up and referral plans. medication usage, Demonstrated understanding of instructions, follow-up care, medications, Prescriptions given X 1, 00:11 Patient left the ED. jb4 Signatures: Dispatcher [employer] EDMS Shayy Berry, DRUM PULLER-C DRUM PULLER-CkBen Sarah, RN RN jb4 Nancy Peraza gm2 Robert Mcnamara ty Corrections: (The following items were deleted from the chart) 12/07 22:40 22:38 Pulse 86bpm; Resp 16bpm; Pulse Ox 93% RA; Temp 101.7F Oral; 86.18 kg Reported; jb4 Height 5 ft. 10 in. Reported; BMI: 27.2; Pain 4/10, Adult; jb4
[2023-12-09] MEDS ORDERED: BENZONATATE 100 MG CAP PO ONE (00:03)
[2023-12-09 00:22] VITALS: BP 158/83; TEMP 99.2; O2SAT 93
--- NOTE | 2023-12-09 12:38 | RAD REPORT ---
EXAM DESCRIPTION: RAD - Chest Single View - 12/08/2023 10:48 pm CLINICAL HISTORY: Cough;Congestion. COMPARISON: None. TECHNIQUE: Single view AP chest radiograph(s). FINDINGS: The lungs are clear. No pulmonary infiltrate or edema identified. No pleural effusion. N o pneumothorax. Nonenlarged cardiomediastinal silhouette. No significant osseous abnormality. IMPRESSION: No acute cardiopulmonary abnormality identified by radiograph. Electronically signed by: Cady Reilly MD 12/08/2023 10:59 PM CDT Due to temporary technical issues with the PACS/Fluency reporting system, reports are being signed by the in house radiologist without review as a courtesy to ensure prompt reporting. The interpreting r adiologist is fully responsible for the content of the report.
== END 2023-12-09 00:11 | disposition home or self-care (01) ==
LOC: ER 22:11
DX: J06.9 Acute upper respiratory infection, unspecified (principal); R11.2 Nausea with vomiting, unspecified; Z11.52 Encounter for screening for COVID-19; Z88.5 Allergy status to narcotic agent; Z88.8 Allergy status to other drugs, medicaments and biological substances
CPT/HCPCS: 36415; 71045; 87070; 87081; 87804; 87811; 99284

== ENCOUNTER 2024-10-20 16:02 | Emergency (ER) | payer OTHER ==
--- OUTSIDE RECORDS SUMMARY | 2024-10-20 16:05 | XMS REPORT | Clinical Summary ---
Author Name Unknown Organization [facility] Address [address] [place] [address] Care Team Providers Care Watch Parts Inspector Name Role Phone Ancelmo Bolaños MD Primary Care Provider [phone] Harjinder Mendoza MD Unavailable [phone] Ancelmo Rutherford MD Unavailable [phone] Allergies Active Allergy Reactions Criticality Noted Date Comments Nicoletteien Larry 06/01/2020 Sonya Dalal,Other (See Comments) 04/25/2019 Zolpidem 04/25/2019 Other reaction(s): Unknown Reaction Medications * This document contains information received from the source organization and may not represent a complete record from that organization. 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 05/24/2020 Active lithium carbonate (ESKALITH) 450 MG CR tablet Take 1 tablet by mouth daily. 05/22/2020 Active doxazosin (CARDURA) 2 mg tablet Take 1 tablet by mouth at bedtime. 03/16/2020 Active MAGNESIUM ORAL Take by mouth. Active vitamin B complex (B COMPLEX-VITAMIN B12 ORAL) Take by mouth. Active cholecalciferol, vitamin D3, (VITAMIN D3 ORAL) Take by mouth. Active zinc gluconate 50 mg tablet Take 50 mg by mouth daily. Active nebivolol (BYSTOLIC) 10 mg tablet Take 1 tablet by mouth daily. 06/03/2021 Active Surgical History Surgery Date Site/Laterality Comments COLONOSCOPY 08/03/2019 - 08/02/2020 I have had 3 colonoscopy. Last one was this year. Medical History Medical History Date Comments Unspecified lump in unspecified breast 2013 Nodules on my Thyroid. Diverticulitis 2009 I have had 3 Col onoscopys. Last one this [id number]. Polyp of colon 2009 I have had 3 Col onoscopys. Last one this [id number]. Gallstone 2009 With each ultras ound I have the gallstone has shrunk. Bipolar disorder 1989 I take [place] once a day. 450mg Family History Medical [...] Assigned at Male 05/27/2020 8:22 PM CDT Legal Sex Male 11:09 AM CDT Gender Identity Male 05/27/2020 8:22 PM CDT Sexual Orientation Straight 05/27/2020 8: 22 PM CDT Obstetrics History Plan of Treatment Health Maintenance Due Date Last Done Comments Pneumococcal Vaccine: 50+ Years (1 of 1 - PCV) 005 COVID-19 Vaccine (2023- season) 2024 Influenza Vaccine (#1) 2024 Insurance [facility] PPO POS [facility] PPO POS Care Teams Watch Parts Inspector Relationship Specialty Start [place] [address] [place] [id number] [email or web address] PCP - General Surgical Oncology 05/17/20 Harjinder Mendoza MD [address] [place] [phone] [email or web address] PCP - External Primary Care Provider Family Practice 05/17/20 Ancelmo Rutherford MD [address] [place] [address] PCP - External Follow Up A Internal Medicine 05/17/20
[2024-10-20] MEDS ORDERED: KETOROLAC 30 MG/ML INJ ONE (17:25)
[2024-10-20] MEDS ORDERED: METOCLOPRAMIDE 10 MG/2mL INJ ONE (17:25)
[2024-10-20] MEDS ORDERED: NA CHLORIDE 0.9% 1,000 ML ONE (17:25)
[2024-10-20] MEDS ORDERED: PANTOPRAZOLE 40 MG INJ ONE (17:25)
--- NOTE | 2024-10-20 17:29 | RAD REPORT ---
Procedure: Chest Single View HISTORY: Abdominal pain COMPARISON: 2023 FINDINGS: The lungs appear clear of acute infiltrate. No significant pleural effusion noted. The heart is normal size. IMPRESSION: No acute abnormality is displayed.
[2024-10-20 17:39] LABS: Absolute Basophils 0.1 K/uL (0-0.5); Absolute Lymphocytes (CBC) 0.8 K/uL (0.7-4.9); Absolute Monocytes 0.9 K/uL (0.1-1.3); Absolute Neutrophil 17.7 K/uL (1.8-8.0); Basophils % 0.3 % (0-1.3); Eosinophils % 0.2 % (0-4.4); Hematocrit 48.4 % (39.6-49.0); Hemoglobin 16.2 g/dL (13.6-17.9); Lymphocytes % 4.3 % (15.3-44.8); MCH 28.1 pg (27.0-35.0); MCHC 33.4 g/dL (32.0-36.0); MPV 9.3 fL (7.6-11.3); Monocytes % 4.5 % (3.3-12.3); Neutrophils % 90.7 % (41.7-73.7); Platelets 262 thou/uL (152-406); RBC Red Blood Cell Count 5.76 M/uL (4.33-5.43); Red Cell Distribution Width 15.4 % (12.1-15.2)
[2024-10-20 17:40] LABS: PT Prothrombin Time 11.3 SECONDS (10-13.0); Protime INR 0.99
[2024-10-20 17:52] LABS: Albumin 4.5 g/dL (3.4-5.0); Albumin/Globulin Ratio 1.2 (1.1-1.8); Bilirubin Total 2.4 mg/dL (0.2-1.0); Globulin 3.7 g/dL (2.3-3.5); Protein, Total 8.2 g/dL (6.4-8.2); Troponin High Sensitivity 4.2 pg/mL (<58.9)
[2024-10-20] MEDS ORDERED: MORPHINE 4 MG/ML SYR ONE (18:11)
--- NOTE | 2024-10-20 18:50 | RAD REPORT ---
EXAMINATION: CT ABDOMEN AND PELVIS WITH CONTRAST CLINICAL INDICATION: Abdominal pain TECHNIQUE: CT abdomen and pelvis was performed, after the administration of 100 cc Isovue-300.. Sagit jace and coronal reconstructions were obtained. One or more of the following dose reduction techniques were used: Automated exposure control, adjustment of the mA and kV according to patient si ze, and iterative reconstruction. Unless otherwise specified, incidental findings do not require dedicated imaging follow-up. [id number]. Oral contrast was not given which limits evaluation of bowel and appendix. COMPARISON: .2023 FINDINGS: Multiple gallstones Liver, spleen, pancreas, and adrenals unremarkable. Bilateral renal cysts. Normal appendix. Small to moderate umbilical hernia contains fluid. Mild dilatation of fluid-filled jejunum portion of ileum. Distal ileum caliber. Small amount of fluid present within the mesenteric leaves right lower quadrant. Large number of diverticula stem from colon without visualization of diverticulitis. No free air. Mild prostatic enlargement : IMPRESSION: Obstruction mid ileum. Cholelithiasis
--- NOTE | 2024-10-20 19:21 | RAD REPORT ---
EXAM: Right upper quadrant ultrasound. CLINICAL HISTORY: Abdominal pain COMPARISON: 2023 FINDINGS: Multiple gallstones. Gallbladder wall is not thickened. Biliary tree normal caliber IMPRESSION: Cholelithiasis without evidence of cholecystitis
--- NOTE | 2024-10-20 20:06 | ER ---
Nurse's Notes [facility] Name: Rick Giron Age: 69 yrs Sex: Male : 1955 Arrival Date: 10/20/2024 Time: 16:02 Bed 8 Private MD: Diagnosis: Small Bowel Obstruction;Nausea with vomiting, unspecified;Other cholelithiasis without obstruction Presentation: 10/20 16:15 Chief complaint: Patient states: n/v abd pain, hx of ulcers. Ebola Screen: No symptoms iw or risks identified at this time. Initial Sepsis Screen: Does the patient meet any 2 criteria? No. Patient's initial sepsis screen is negative. 16:15 Method Of Arrival: Ambulatory iw 16:15 Acuity: CAL 3 iw Historical: - Allergies: 16:20 ambien; iw - PMHx: 16:20 Bipolar disorder; HTN; Diverticulitis; Heart Murmur; DM type 2; Umbilical hernia; iw - Immunization history:: Adult Immunizations up to date. - Infectious Disease History:: Denies. - Social history:: Smoking status: Patient denies any tobacco usage or history of. Screenin:30 [facility] ED Fall Risk Assessment (Adult) History of falling in the last 3 months, ld1 including since admission No falls in past 3 months (0 pts) Confusion or Disorientation No (0 pts) Intoxicated or Sedated No (0 pts) Impaired Gait No (0 pts) Mobility Assist Device Used No (0 pt) Altered Elimination No (0 pt) Score/Fall Risk Level 0 - 2 = Low Risk Oriented to surroundings, Hourly rounding (assess needs \T\ fall precautionary measures) done. Abuse screen: Denies threats or abuse. Denies injuries from another. Nutritional screening: No deficits noted. Tuberculosis screening: No symptoms or risk factors identified. Assessment: 18:10 General: Appears in no apparent distress. uncomfortable, Behavior is calm, cooperative, ld1 appropriate for age. Pain: Complains of pain in abdomen Pain does not radiate. Pain currently is 8 out of 10 on a pain scale. Quality of pain is described as throbbing, Pain began 1 day ago. Is continuous. 18:10 Neuro: Level of Consciousness is awake, alert, obeys commands, Oriented to person, ld1 place, time, situation. Cardiovascular: Capillary refill < 3 seconds Patient's skin is warm and dry. Rhythm is sinus rhythm. Respiratory: Airway is patent Respiratory effort is even, unlabored. GI: Abdomen is round non-distended, Reports lower abdominal pain, upper abdominal pain, nausea. GI: Reports vomiting. : No signs and/or symptoms were reported regarding the genitourinary system. EENT: No signs and/or symptoms were reported regarding the EENT system. Derm: No signs and/or symptoms reported regarding the dermatologic system. Musculoskeletal: No signs and/or symptoms reported regarding the musculoskeletal system. 19:35 Reassessment: ASSUMING PT CARE AT THIS TIME. ld1 21:11 Reassessment: REPORT CALLED TO VI HUIZAR AT [facility]. dd2 Vital Signs: 16:20 BP 162 / 68; Pulse 59; Resp 16; Temp 97.8; Pulse Ox 97% ; Pain 9/10; iw 18:10 BP 133 / 63; Pulse 55; Resp 18; Pulse Ox 100% on R/A; ld1 18:48 BP 131 / 68; Pulse 58; Resp 18; Pulse Ox 96% on R/A; ld1 20:54 BP 136 / 67; Pulse 65; Resp 16; Pulse Ox 93% on 2 lpm NC; ld1 16:20 Pain Scale: Adult iw ED Course: 16:06 Patient arrived in ED. al6 16:15 Abran Varela PA is PHCP. cp 16:15 Ovi Bender MD is Attending Physician. cp 16:15 Triage completed. iw 17:23 XRAY Chest (1 view) In Process Unspecified. EDMS 17:29 CBC with Diff Sent. cc6 17:29 CMP Sent. cc6 17:29 Lipase Sent. cc6 18:15 Brandy Rodrigez, VI is Primary Nurse. ld1 18:30 No provider procedures requiring assistance completed. ld1 18:30 Patient has correct armband on for positive identification. Placed in gown. Bed in low ld1 position. Call light in reach. Side rails up X2. rug cutter helper on. Pulse ox on. NIBP on. Door closed. Noise minimized. Warm blanket given. 18:37 CT Abd/Pelvis - IV Contrast Only In Process Unspecified. EDMS 19:17 US Abdomen Limited: gallbladder In Process Unspecified. EDMS 19:34 Patient maintains SpO2 saturation greater than 95% on room air. ld1 20:03 Attempted transfer to [facility], no answer, will call back. rv1 20:05 Initiated transfer with Lisa at [facility]. rv1 20:13 Giovanni Clark MD is Attending Physician. cp 20:15 Doc to Doc with Surgeon at [facility]. rv1 20:24 Doc to Doc with Surgeon at [facility]. rv1 20:42 Doc to Doc with Hospitalist at [facility]. rv1 20:[address] Lundberg to [facility] Rm [phone]. Report #[id number]. rv1 20:53 EKG done, by ED staff, reviewed by Abran CARD. IV is patent, is intact, with fluids ld1 infusing freely, with good blood return, PT HAS A 20G LAC. 21:12 Mirna with [facility] gave 20 min ETA. rv1 22:06 Patient transferred, IV remains in place. ld1 22:07 Provided Education on: TRANSFER EDUCAION. ld1 Administered Medications: 17:31 Drug: NS 0.9% IV 1000 ml IV at 1 bolus Per protocol; to be given as a bolus over 60 iw minutes Route: IV; Rate: 1 bolus; Site: left antecubital; 19:10 Follow up: IV Status: Completed infusion ld1 17:32 Drug: Pantoprazole IVP 40 mg IVP once Route: IVP; Site: left antecubital; iw 17:32 Drug: metoCLOPramide IVP 10 mg IVP once; over 1 to 2 minutes Route: IVP; Site: left iw antecubital; 17:32 Drug: Ketorolac IVP 15 mg IVP once Route: IVP; Site: left antecubital; iw 18:16 Drug: morphine IVP or IV 4 mg IVP once over 4 mins Route: IVP; Infused Over: 4 mins; ld1 Site: left antecubital; 18:48 Not Given (Pt does not need medication at this time. Pain subsided.): morphineor iv 4 ld1 mg IVP once over 4 mins; may repeat 20 minutes if pain continues 19:28 CANCELLED (Physician Discretion): [id number] mg 200 ml IVPB once over 60 mins cp 19:28 CANCELLED (Physician Discretion): [id number] mg 100 ml IVPB once over 30 mins cp 20:50 Drug: HYDROmorphone IVP 1 mg IVP once Route: IVP; Site: left antecubital; ld1 21:05 Follow up: Response: No adverse reaction ld1 20:50 Drug: Ondansetron IVP 4 mg IVP once; over 2 minutes Route: IVP; Site: left antecubital; ld1 21:05 Follow up: Response: No adverse reaction ld1 20:51 Drug: Piperacillin-Tazobactam IVPB 3.375 grams IVPB once over 60 mins; (mix in NS 100 ld1 mL) Route: IVPB; Infused Over: 60 mins; Site: left antecubital; 21:51 Follow up: IV Status: Completed infusion; IV Intake: 100ml ld1 Medication: 18:30 VIS not applicable for this client. ld1 Intake: 21:51 IV: 100ml; Total: 100ml. ld1 Outcome: 20:05 ER care complete, transfer ordered by MD. cp 22:06 Transferred by ground EMS to [facility], Transfer form completed. ld1 22:06 Condition: stable 22:06 Instructed on the need for transfer, Demonstrated understanding of instructions, 22:07 Patient left the ED. ld1 Signatures: Dispatcher [employer] Lynne Brewster RN RN iw Abran Varela PA PA cp Brandy Rodrigez RN RN ld1 Mary Whitaker rv1 Phoebe Whittington cc6 IGNACIO MARION RN RN dd2 Angela Garrett al6 Corrections: (The following items were deleted from the chart) 17:32 16:20 BP 162 / 68; Pulse 59bpm; Resp 16bpm; Pulse Ox 97%; Pain 9/10, Adult; iw iw
--- NOTE | 2024-10-20 20:06 | EDPHYS ---
Physician Documentation [facility] Name: Rick Giron Age: 69 yrs Sex: Male : 1955 Arrival Date: 10/20/2024 Time: 16:02 Bed 8 Private MD: ED Physician Giovanni Clark HPI: 10/20 16:25 This 69 yrs old Male presents to ER via Ambulatory with complaints of Nausea/Vomiting, cp Abdominal Pain. 16:25 The patient presents to the emergency department with nausea, with "dry heaves", cp vomiting, that is continuous, abdominal pain, of the abdomen diffusely. Onset: The symptoms/episode began/occurred this morning. Possible causes: flare up of bowel problem, similar episodes in the past, history of gastric ulcers. 16:25 Associated signs and symptoms: Pertinent negatives: constipation, diarrhea, fever, GI cp bleeding, chest pain. Severity of symptoms: in the emergency department the symptoms are unchanged despite home interventions. Historical: - Allergies: 16:20 ambien; iw - PMHx: 16:20 Bipolar disorder; HTN; Diverticulitis; Heart Murmur; DM type 2; Umbilical hernia; iw - Immunization history:: Adult Immunizations up to date. - Infectious Disease History:: Denies. - Social history:: Smoking status: Patient denies any tobacco usage or history of. ROS: 16:30 Constitutional: Positive for poor PO intake, Negative for body aches, chills, fever, cp 16:30 Eyes: Negative for injury, pain, redness, and discharge, cp 16:30 ENT: Negative for drainage from ear(s), ear pain, sore throat, difficulty swallowing, difficulty handling secretions, 16:30 Cardiovascular: Negative for chest pain, 16:30 Respiratory: Negative for cough, shortness of breath, wheezing, 16:30 Abdomen/GI: Positive for abdominal pain, nausea and vomiting, anorexia, Negative for diarrhea, constipation, hematemesis, black/tarry stool, rectal bleeding, 16:30 Back: Negative for radiated pain, 16:30 : Negative for urinary symptoms, testicular pain 16:30 Neuro: Negative for altered mental status, headache, syncope, 16:30 All other systems are negative, Exam: 16:35 Constitutional: The patient appears in no acute distress, alert, awake, cp non-diaphoretic, non-toxic, well developed, well nourished, uncomfortable, 16:35 Head/Face: Normocephalic, atraumatic. cp 16:35 Eyes: Periorbital structures: appear normal, Conjunctiva: normal, no exudate, no injection, Sclera: no appreciated abnormality, Lids and lashes: appear normal, bilaterally, 16:35 ENT: External ear(s): are unremarkable, Nose: is normal, Mouth: Lips: moist, Oral mucosa: moist, Posterior pharynx: Airway: no evidence of obstruction, patent, 16:35 Chest/axilla: Inspection: normal, Palpation: is normal, no crepitus, no tenderness, 16:35 Cardiovascular: Rate: bradycardic, Rhythm: regular, Edema: is not appreciated, JVD: is not appreciated, 16:35 Respiratory: the patient does not display signs of respiratory distress, Respirations: normal, no use of accessory muscles, no retractions, labored breathing, is not present, Breath sounds: are clear throughout, no decreased breath sounds, no stridor, no wheezing, 16:35 Abdomen/GI: Inspection: obese Bowel sounds: active, all quadrants, Palpation: soft, in all quadrants, moderate abdominal tenderness, in all quadrants, rebound tenderness, is not appreciated, involuntary guarding, is not appreciated, Hernia: noted in the umbilical area, incarceration, is not appreciated, tenderness, 16:35 Back: CVA tenderness, is absent, vertebral tenderness, is not appreciated, 16:35 Neuro: Orientation: to person, place \\T\\ time. Mentation: is normal, Motor: moves all fours, strength is normal, Sensation: no obvious gross deficits, 20:05 ECG was reviewed by the Attending Physician. cp Vital Signs: 16:20 BP 162 / 68; Pulse 59; Resp 16; Temp 97.8; Pulse Ox 97% ; Pain 9/10; iw 18:10 BP 133 / 63; Pulse 55; Resp 18; Pulse Ox 100% on R/A; ld1 18:48 BP 131 / 68; Pulse 58; Resp 18; Pulse Ox 96% on R/A; ld1 20:54 BP 136 / 67; Pulse 65; Resp 16; Pulse Ox 93% on 2 lpm NC; ld1 16:20 Pain Scale: Adult iw MDM: 16:15 Medical Screening Exam initiated cp 17:00 Differential diagnosis: gastritis, cholecystitis, pancreatitis, viral gastroenteritis, cp gastroenteritis, bowel obstruction, ileus. 19:33 I considered the following discharge prescriptions or medication management in the emergency department Medications were administered in the Emergency Department. See MAR. 19:33 Independent interpretation of the following test(s) in the Emergency Department EKG: cp See my EKG interpretation above. Care significantly affected by the following chronic conditions: Diabetes, Hypertension. Counseling: I had a detailed discussion with the patient and/or guardian regarding the historical points, exam findings, and any diagnostic results supporting the discharge/admit diagnosis, lab results, radiology results, the need for further work-up and treatment in the hospital. Response to treatment: the patient's symptoms have mildly improved after treatment. 19:35 ED course: consult with general surgery, DR Jackson, will provide surgical consult if cp hospitalist agrees to accept patient. 20:05 ED course: consult with hospitalist, DR Baca, recommends transfer for GI services due cp to patient's history of Crohns' disease. 20:30 ED course: consult with surgery, DR Ewing, at [facility] will consult and cp request transfer to hospitalist services. 20:50 ED course: consult with DR Alaniz, hospitalist, will accept transfer and wants NG cp tube on hold at this time due to patient having normal bowel movements. 10/21 02:32 Data reviewed: vital signs, nurses notes, lab test result(s), radiologic studies. sp4 10/20 16:21 Order name: CBC with Diff; Complete Time: 18:08 cp 10/20 19:24 Interpretation: Abnormal: WBC 19.60; RBC 5.76; RDW 15.4; ALEXANDER% 90.7; LYM% 4.3; NEUT A cp 17.7. 10/20 16:21 Order name: CMP; Complete Time: 18:08 cp 10/20 18:55 Interpretation: Normal except: NA 134; GLUC 191; BUN 23; CRE 1.73; GFR 42; BILIT 2.4; cp GLOB 3.7. 10/20 16:21 Order name: Lipase; Complete Time: 18:08 cp 10/20 16:21 Order name: Troponin High Sensitivity; Complete Time: 18:08 cp 10/20 16:21 Order name: PT-INR; Complete Time: 18:08 cp 10/20 16:21 Order name: XRAY Chest (1 view); Complete Time: 17:33 cp 10/20 17:35 Order name: CT Abd/Pelvis - IV Contrast Only; Complete Time: 20:17 cp 10/20 20:18 Interpretation: Report reviewed. cp 10/20 18:56 Order name: US Abdomen Limited: gallbladder; Complete Time: 19:24 cp 10/20 16:21 Order name: EKG; Complete Time: 16:22 cp 10/20 16:21 Order name: IV Saline Lock; Complete Time: 17:29 cp 10/20 16:21 Order name: Labs collected and sent; Complete Time: 17:29 cp 10/20 16:21 Order name: EKG - Nurse/Tech; Complete Time: 20:52 cp 10/20 18:56 Order name: NPO; Complete Time: 19:00 cp EC/20 20:05 Rate is 63 beats/min. Rhythm is regular. PA interval is normal. QRS interval is normal. cp QT interval is normal. T waves are Inverted in leads aVL, aVR. Interpreted by me. Reviewed by me. Administered Medications: 17:31 Drug: NS 0.9% IV 1000 ml IV at 1 bolus Per protocol; to be given as a bolus over 60 iw minutes Route: IV; Rate: 1 bolus; Site: left antecubital; 19:10 Follow up: IV Status: Completed infusion ld1 17:32 Drug: Pantoprazole IVP 40 mg IVP once Route: IVP; Site: left antecubital; iw 17:32 Drug: metoCLOPramide IVP 10 mg IVP once; over 1 to 2 minutes Route: IVP; Site: left iw antecubital; 17:32 Drug: Ketorolac IVP 15 mg IVP once Route: IVP; Site: left antecubital; iw 18:16 Drug: morphine IVP or IV 4 mg IVP once over 4 mins Route: IVP; Infused Over: 4 mins; ld1 Site: left antecubital; 18:48 Not Given (Pt does not need medication at this time. Pain subsided.): morphineor iv 4 ld1 mg IVP once over 4 mins; may repeat 20 minutes if pain continues 19:28 CANCELLED (Physician Discretion): [id number] mg 200 ml IVPB once over 60 mins cp 19:28 CANCELLED (Physician Discretion): [id number] mg 100 ml IVPB once over 30 mins cp 20:50 Drug: HYDROmorphone IVP 1 mg IVP once Route: IVP; Site: left antecubital; ld1 21:05 Follow up: Response: No adverse reaction ld1 20:50 Drug: Ondansetron IVP 4 mg IVP once; over 2 minutes Route: IVP; Site: left antecubital; ld1 21:05 Follow up: Response: No adverse reaction ld1 20:51 Drug: Piperacillin-Tazobactam IVPB 3.375 grams IVPB once over 60 mins; (mix in NS 100 ld1 mL) Route: IVPB; Infused Over: 60 mins; Site: left antecubital; 21:51 Follow up: IV Status: Completed infusion; IV Intake: 100ml ld1 Disposition: 10/21 02:31 Co-signature as Attending Physician, Giovanni Clark MD I agree with the assessment sp4 and plan of care. I reviewed the patient's care provided by the Advanced Practice Provider and agree with the diagnosis and treatment plan. Disposition Summary: 10/20/24 20:05 Transfer Ordered Notes: Transfer Location: [facility] cp Reason: Higher level of care cp Condition: Fair cp Problem: new cp Symptoms: have improved cp Accepting Physician: DR Alaniz(10/20/24 22:07) ld1 Diagnosis - Small Bowel Obstruction cp - Nausea with vomiting, unspecified cp - Other cholelithiasis without obstruction cp Forms: - Medication Reconciliation Form cp - SBAR form cp Signatures: Dispatcher [employer] EDMS Lynne Castrejon RN RN iw Page, Corey, PA PA cp Brandy Rodrigez RN RN ld1 Giovanni Clark MD MD sp4 IGNACIO MARION RN RN dd2 Corrections: (The following items were deleted from the chart) 10/20 17:35 17:35 Abdomen Pelvis W Con+CT.RAD.BRZ ordered. EDMS EDMS 18:54 18:54 NG Tube ordered. cp cp 19:28 19:26 Ciprofloxacin IVPB 400 mg 200 ml IVPB once over 60 mins ordered. cp cp 19:28 19:26 metroNIDAZOLE IVPB 500 mg 100 ml IVPB once over 30 mins ordered. cp cp 20:06 20:05 Doctor cp cp 20:47 19:54 NG Tube ordered. cp cp 20:50 20:06 Doctor cp cp 22:07 20:50 DR Alaniz cp ld1 10/21 14:18 10/20 16:25 Possible causes: flare up of bowel problem, similar episodes in the past, cpcp
[2024-10-20] MEDS ORDERED: NA CHLORIDE 0.9% 100 ML ONE (20:37)
[2024-10-20] MEDS ORDERED: ONDANSETRON 4 MG/2 ML VIAL ONE (20:37)
[2024-10-20] MEDS ORDERED: HYDROMORPHONE HCL 1 MG/ML INJ ONE (20:37)
[2024-10-20] MEDS ORDERED: PIPERACIL/TAZO 3.375 GM VIAL IV ONE (20:37)
[2024-10-20 23:20] VITALS: TEMP 97.8
[2024-10-20 23:24] VITALS: BP 136/67; O2SAT 93
--- NOTE | 2024-10-24 12:12 | EKG ---
Test Date: 2024-10-20 Test Time: 19:59:54 Dynamic Balancer: KULWINDER MEASUREMENT RESULTS: Intervals: Rate: 63 OK: 178 QRSD: 98 QT: 398 QTc: 407 [place]: P: 63 OK: 178 QRS: 62 T: 70 INTERPRETIVE STATEMENTS: Normal sinus rhythm Normal ECG Compared to ECG 07/31/2023 06:16:33 Sinus bradycardia no longer present Electronically Signed On 10-24-24 12:03:43 CDT by Rolly Ponce
== END 2024-10-20 22:07 | disposition short-term general hospital (02) ==
LOC: ER 16:02
DX: K56.609 Unspecified intestinal obstruction, unspecified as to partial versus complete obstruction (principal); K80.80 Other cholelithiasis without obstruction
CPT/HCPCS: 96365; 96361; 85025; 36415; 85610; 84484; 83690; 80053; 74177; 71045; 76705; 96375; 99285; Q9967; J2765; J2543; J2470; J1171; J2405; J7030; 93005